=== PATIENT | female | born 1980 | race African-American/Black ===

== ENCOUNTER 2018-01-26 11:28 | Inpatient (IN) | payer BC ==
[2018-01-26] MEDS ORDERED: INSULIN -REGULAR HUMAN 50 UNIT/0.5 ML ML ONE (13:14)
[2018-01-26] MEDS ORDERED: NA CHLORIDE 0.9% 0 ML ONE (13:14)
[2018-01-26 13:40] LABS: BUN Blood Urea Nitrogen 9 mg/dL (6-20); Glucose Level 401 mg/dL (65-120); Sodium Level 131 mEq/L (135-145)
[2018-01-26 13:43] LABS: Absolute Lymphocytes (CBC) 2.3 K/uL (0.7-4.9); Absolute Monocytes 0.3 K/uL (0.1-1.3); Absolute Neutrophil 3.5 K/uL (1.8-8.0); Basophils % 0.8 % (0-1.3); Eosinophils % 1.2 % (0-4.4); Lymphocytes % 36.5 % (15.3-44.8); MCH 26.8 pg (27.0-35.0); MCV 83.8 fL (80-100); MPV 9.5 fL (7.6-11.3); Monocytes % 5.2 % (3.3-12.3); RBC Red Blood Cell Count 4.66 M/uL (3.86-4.86)
[2018-01-26 13:44] LABS: Bicarbonate 11 mEq/L (21-31)
--- NOTE | 2018-01-26 13:44 | EKG ---
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
[2018-01-26] MEDS ORDERED: ONDANSETRON 4 MG/2 ML VIAL IV PRN (14:27)
[2018-01-26] MEDS ORDERED: INSULIN DETEMIR 100 UNIT/1 ML INSULIN SQ SCH ×2 (14:30→21:00)
[2018-01-26] MEDS ORDERED: INSULIN -REGULAR HUMAN 100 UNIT in NA CHLORIDE 0.9% 100 ML IV SCH (14:30)
--- NOTE | 2018-01-26 14:32 | ER ---
Nurse's Notes [facility] Name: Raphael Su Age: 37 yrs Sex: Female : 1980 Arrival Date: 01/26/2018 Time: 11:31 Bed 7 Private MD: Diagnosis: Other specified diabetes mellitus with ketoacidosis without coma;Dehydration Presentation: 01/26 12:11 Presenting complaint: Patient states: "I went to do my physical this morning and my lk1 sugar was 466. My feet hurt and my left calf hurts. I feel short of breath.". Transition of care: patient was not received from another setting of care. Onset of symptoms was January 26, 2018 at 08:00. Initial Sepsis Screen: Does the patient meet any 2 criteria? No. Patient's initial sepsis screen is negative. Does the patient have a suspected source of infection? No. Patient initial sepsis screen negative. Care prior to arrival: None. 12:11 Method Of Arrival: Ambulatory lk1 12:11 Acuity: SHARON 3 lk1 Triage Assessment: 12:13 General: Appears in no apparent distress. Behavior is calm, cooperative, appropriate lk1 for age. Pain: Complains of pain in right foot, left foot and left leg Pain currently is 6 out of 10 on a pain scale. 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 - Social history:: Smoking status: Patient uses tobacco products, smokes one-half pack cigarettes per day. - Family history:: not pertinent. - Hospitalizations: : No recent hospitalization is reported. Screenin:40 Abuse screen: Denies threats or abuse. Denies injuries from another. Nutritional sg screening: No deficits noted. Tuberculosis screening: No symptoms or risk factors identified. Never had TB. Fall Risk None identified. Assessment: 12:40 General: Appears in no apparent distress. comfortable, slender, well groomed, well sg developed, well nourished, Behavior is calm, cooperative, appropriate for age. Pain: Complains of pain in left leg and right foot Pain does not radiate. Quality of pain is described as tender. Neuro: Level of Consciousness is awake, alert, obeys commands, Oriented to person, place, time, situation, Development Eng are equal bilaterally Moves all extremities. Full function Speech is normal, Facial symmetry appears normal. Cardiovascular: Heart tones S1 S2 present Capillary refill is brisk in bilateral fingers Patient's skin is warm and dry. Chest pain is denied. Respiratory: Airway is patent Respiratory effort is even, unlabored, Respiratory pattern is regular, symmetrical, Breath sounds are clear. GI: No signs and/or symptoms were reported involving the gastrointestinal system. : No signs and/or symptoms were reported regarding the genitourinary system. EENT: No signs and/or symptoms were reported regarding the EENT system. Derm: Skin is intact, is healthy with good turgor, Skin is dry, Skin is normal, Skin temperature is warm. Musculoskeletal: No deficits noted. Reports pain in left leg and right foot. 15:54 Reassessment: Patient appears in no apparent distress at this time. Patient and/or iw family updated on plan of care and expected duration. Pain level reassessed. Patient is alert, oriented x 3, equal unlabored respirations, skin warm/dry/pink. pt ambulated to bathroom with steady gait, RT at bedside to draw ABG, urine specimen collected, KV=[id number]. 16:10 Reassessment: on phone, reports the pt gap to be 9, orders received to d/c sg insulin drip, administer 5 units Levemir Sub Q, and the pt to be downgraded from ICU to the floor. awaiting a bed assignment. 16:20 Reassessment: at bedside at this time. sg Vital Signs: 12:13 BP 108 / 77; Pulse 113; Resp 18; Temp 98.2(O); Pulse Ox 98% on R/A; Weight 68.04 kg lk1 (R); Height 5 ft. 6 in. (167.64 cm) (R); Pain 6/10; 13:37 BP 105 / 74; Pulse 98; Resp 18; Pulse Ox 98% on R/A; jb1 15:30 BP 100 / 71; Pulse 96 MON; Resp 18 S; Pulse Ox 100% on R/A; sg 12:13 Body Mass Index 24.21 (68.04 kg, 167.64 cm) lk1 ED Course: 11:31 Patient arrived in ED. as 12:12 Triage completed. lk1 12:16 Arm band placed on right wrist. lk1 12:17 Jeovanny Machado MD is Attending Physician. rn 12:29 Que Olson, RN is Primary Nurse. sg 12:40 Patient has correct armband on for positive identification. Bed in low position. Call sg light in reach. Side rails up X2. Pulse ox on. NIBP on. Warm blanket given. Head of bed elevated. 12:40 No provider procedures requiring assistance completed. sg 12:46 Que Olson, RN is Primary Nurse. sg 13:00 EKG done, by area intelligence technician. reviewed by Jeovanny Machado MD. vh 13:11 Initial lab(s) drawn, by me, sent to lab. Inserted saline lock: 22 gauge in right jb1 forearm, using aseptic technique. Blood collected. 14:15 XRAY Chest (1 view) In Process Unspecified. EDMS 14:19 X-ray completed. Portable x-ray completed in exam room. Patient tolerated procedure jr1 well. 14:31 Scott Turner DO is Hospitalizing Provider. rn 14:31 Marj Turner MD is Hospitalizing Provider. rn 14:55 Que Olson, VANESSA is Primary Nurse. sg 16:02 Urine collected: clean catch specimen, cloudy, jessica colored. jb1 16:33 Patient admitted, IV remains in place. intact, No redness/swelling at site. sg Administered Medications: Discontinued: Insulin Drip - (Insulin Regular Human 100 units, NS 0.9% 100 ml) IV at calculated rate continuous; Standard concentration 1unit/ml; Dose for DKA is 0.1 units/kg/hr 13:00 Drug: NS 0.9% 1000 ml Route: IV; Rate: 1000 ml; Site: right forearm; sg 14:20 Follow up: Response: No adverse reaction; IV Status: Completed infusion; IV Intake: sg 990ml 13:00 Drug: Insulin Regular Human 10 units {Co-Signature: sv (Karen Valencia RN).} Route: sg Sub-Q; Site: right upper arm; 13:30 Follow up: Response: No adverse reaction; Blood sugar is unchanged sg 15:40 Drug: Zofran 4 mg Route: IVP; Site: right forearm; sg 16:10 Follow up: Response: No adverse reaction; Nausea is decreased sg 15:40 Drug: NS 0.9% 1000 ml Route: IV; Rate: 1000 ml; Site: right forearm; sg 15:48 Drug: Insulin Drip - (Insulin Regular Human 100 units, NS 0.9% 100 ml) {Co-Signature: sg iw (Roselyn Hooker RN).} Route: IV; Rate: calculated rate; Site: right forearm; 16:08 Drug: D5-1/2 NS 1000 ml Route: IV; Rate: 150 ml/hr; Site: left antecubital; iw 16:20 Drug: Levemir 100 unit/mL 5 units Route: Sub-Q; Site: right upper arm; sg Point of Care Testing: Blood Glucose: 12:30 Blood Glucose: 336 mg/dL; jb1 14:02 Blood Glucose: 352 mg/dL; jb1 15:54 Blood Glucose: 246 mg/dL; iw Ranges: Intake: 14:20 IV: 990ml; Total: 990ml. sg Outcome: 14:31 Decision to Hospitalize by Provider. rn 16:32 Admitted to Tele accompanied by tech, family with patient, via wheelchair, room 414, sg with chart, Report called to Iker MENDEZ 16:32 Condition: stable 16:32 Instructed on the need for admit, safety practices, Demonstrated understanding of 16:51 Patient left the ED. bd Signatures: Dispatcher [employer] Sudhakar Mercedes jb1 Sarah Will Steven, RN RN Susy Espinoza Amelia as Williams, Irene, RN RN Jeovanny Machado MD MD rn Harrell, Venessa vh Kluge, Leah, RN RN lk1 Karen Hooker RN iw
--- NOTE | 2018-01-26 14:32 | RAD REPORT ---
EXAM DESCRIPTION: RAD - Chest Single View - 01/26/2018 2:17 pm CLINICAL HISTORY: Shortness of breath COMPARISON: November 19 TECHNIQUE: AP portable chest image was obtained 1403 hours . FINDINGS: Lungs are clear. Heart and vasculature are normal. No measurable pleural effusion and no p neumothorax. No gross bony abnormality seen. No acute aortic findings suspected. IMPRESSION: No acute cardiopulmonary process. No significant interval change.
--- NOTE | 2018-01-26 14:32 | EDPHYS ---
Physician Documentation [facility] Name: Raphael Su Age: 37 yrs Sex: Female : 1980 Arrival Date: 01/26/2018 Time: 11:31 Bed 7 Private MD: ED Physician Jeovanny Machado HPI: 01/26 13:38 This 37 yrs old Black Female presents to ER via Ambulatory with complaints of High rn Blood Sugar. 13:38 The patient or guardian reports hyperglycemia, that was potentially precipitated by no rn particular event. Onset: The symptoms/episode began/occurred at an unknown time. Current symptoms: In the emergency department the patient's symptoms are unchanged from the initial presentation. The patient has experienced similar episodes in the past. Reports was at work physical today, sugar was > 400, called pcp for appt but unable to fit her in so came here, reports generalized weakness, + increased urinary frequency, states used to be on lantus but had allergic reaction so stopped, also states araujo of other insulin was keeping her from refilling. States that take sonly half of her glimepride because causes her irregular bleeding. . Also reports mild sob, just flew back from [place] recently. No hx of dvt/pe. 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 - Social history:: Smoking status: Patient uses tobacco products, smokes one-half pack cigarettes per day. - Family history:: not pertinent. - Hospitalizations: : No recent hospitalization is reported. ROS: 13:38 Constitutional: Negative for fever, chills, and weight loss, Eyes: Negative for injury, rn pain, redness, and discharge, Neck: Negative for injury, pain, and swelling, Cardiovascular: Negative for chest pain, palpitations, and edema, Respiratory: Negative for shortness of breath, cough, wheezing, and pleuritic chest pain, Abdomen/GI: Negative for abdominal pain, nausea, vomiting, diarrhea, and constipation, Back: Negative for injury and pain, MS/Extremity: Negative for injury and deformity, Skin: Negative for injury, rash, and discoloration, Neuro: Negative for headache, numbness, tingling, and seizure. Exam: 13:38 Constitutional: This is a well developed, well nourished patient who is awake, alert, rn and in no acute distress. Head/Face: Normocephalic, atraumatic. Eyes: Pupils equal round and reactive to light, extra-ocular motions intact. Lids and lashes normal. Conjunctiva and sclera are non-icteric and not injected. Cornea within normal limits. Periorbital areas with no swelling, redness, or edema. ENT: dry MM Neck: Trachea midline, no thyromegaly or masses palpated, and no cervical lymphadenopathy. Supple, full range of motion without nuchal rigidity, or vertebral point tenderness. No Meningismus. Cardiovascular: Regular rate and rhythm with a normal S1 and S2. No gallops, murmurs, or rubs. Normal PMI, no JVD. No pulse deficits. Respiratory: Lungs have equal breath sounds bilaterally, clear to auscultation and percussion. No rales, rhonchi or wheezes noted. No increased work of breathing, no retractions or nasal flaring. Abdomen/GI: Soft, non-tender, with normal bowel sounds. No distension or tympany. No guarding or rebound. No evidence of tenderness throughout. Back: No spinal tenderness. No costovertebral tenderness. Full range of motion. MS/ Extremity: Pulses equal, no cyanosis. Neurovascular intact. Full, normal range of motion. Equal circumference. Neuro: Awake and alert, GCS 15, oriented to person, place, time, and situation. Cranial nerves II-XII grossly intact. Motor strength 5/5 in all extremities. Sensory grossly intact. Cerebellar exam normal. Normal gait. Vital Signs: 12:13 BP 108 / 77; Pulse 113; Resp 18; Temp 98.2(O); Pulse Ox 98% on R/A; Weight 68.04 kg lk1 (R); Height 5 ft. 6 in. (167.64 cm) (R); Pain 6/10; 13:37 BP 105 / 74; Pulse 98; Resp 18; Pulse Ox 98% on R/A; jb1 15:30 BP 100 / 71; Pulse 96 MON; Resp 18 S; Pulse Ox 100% on R/A; sg 12:13 Body Mass Index 24.21 (68.04 kg, 167.64 cm) lk1 MDM: 12:17 Patient medically screened. rn 14:30 Differential diagnosis: DKA, hyperglycemia. Data reviewed: vital signs, nurses notes, advisory internship test result(s), EKG, radiologic studies, and as a result, I will admit patient. Counseling: I had a detailed discussion with the patient and/or guardian regarding: the historical points, exam findings, and any diagnostic results supporting the discharge/admit diagnosis, lab results, radiology results, the need for further work-up and treatment in the hospital. Response to treatment: the patient's symptoms have mildly improved after treatment, and as a result, I will admit patient. Admission orders: after a detailed discussion of the patient's condition and case, the admit orders are written by me. 01/26 12:41 Order name: CBC with Diff; Complete Time: 14:03 rn 01/26 12:41 Order name: Basic Metabolic Panel; Complete Time: 14:03 rn 01/26 12:41 Order name: Urine Microscopic Only rn 01/26 12:41 Order name: D-Dimer; Complete Time: 14:03 rn 01/26 12:41 Order name: Ketone, Serum; Complete Time: 14:03 rn 01/26 14:30 Order name: ABG rn 01/26 14:34 Order name: Acetone Level EDNM 01/26 14:34 Order name: Acetone Level EDNM 01/26 14:34 Order name: Acetone Level EDNM 01/26 14:34 Order name: Acetone Level EDNM 01/26 14:34 Order name: Basic Metabolic Panel EDNM 01/26 14:34 Order name: Basic Metabolic Panel EDNM 01/26 14:34 Order name: Basic Metabolic Panel EDNM 01/26 14:34 Order name: Basic Metabolic Panel EDNM 01/26 12:41 Order name: XRAY Chest (1 view); Complete Time: 15:03 rn 01/26 14:34 Order name: Basic Metabolic Panel EDNM 01/26 14:34 Order name: Magnesium EDMS 01/26 14:34 Order name: Magnesium EDMS 01/26 14:34 Order name: Phosphorus EDMS 01/26 14:34 Order name: Phosphorus EDMS 01/26 14:35 Order name: Urinalysis EDNM 01/26 14:36 Order name: CBC with Automated Diff EDMS 01/26 14:36 Order name: CBC with Automated Diff EDMS 01/26 14:36 Order name: CBC with Automated Diff EDMS 01/26 14:36 Order name: CBC with Automated Diff EDMS 01/26 16:24 Order name: ABG Arterial Blood Gas EDNM 01/26 16:27 Order name: Urine Dipstick--Ancillary (enter results) jw5 01/26 16:40 Order name: Urine Dipstick-Ancillary EDNM 01/26 12:41 Order name: IV Start; Complete Time: 13:11 rn 01/26 12:41 Order name: Urine Test (obtain specimen); Complete Time: 16:02 rn 01/26 12:41 Order name: Urine Dipstick-Ancillary (obtain specimen); Complete Time: 16:02 rn 01/26 12:41 Order name: Glucose Level; Complete Time: 12:52 rn 01/26 12:41 Order name: EKG; Complete Time: 12:41 rn 01/26 12:41 Order name: EKG - Nurse/Tech; Complete Time: 12:52 rn 01/26 14:34 Order name: CONS Pharmacy Consult EDNM 01/26 14:35 Order name: NPO EDNM Administered Medications: Discontinued: Insulin Drip - (Insulin Regular Human 100 units, NS 0.9% 100 ml) IV at calculated rate continuous; Standard concentration 1unit/ml; Dose for DKA is 0.1 units/kg/hr 13:00 Drug: NS 0.9% 1000 ml Route: IV; Rate: 1000 ml; Site: right forearm; sg 14:20 Follow up: Response: No adverse reaction; IV Status: Completed infusion; IV Intake: sg 990ml 13:00 Drug: Insulin Regular Human 10 units {Co-Signature: sv (Karen Valencia RN).} Route: sg Sub-Q; Site: right upper arm; 13:30 Follow up: Response: No adverse reaction; Blood sugar is unchanged sg 15:40 Drug: Zofran 4 mg Route: IVP; Site: right forearm; sg 16:10 Follow up: Response: No adverse reaction; Nausea is decreased sg 15:40 Drug: NS 0.9% 1000 ml Route: IV; Rate: 1000 ml; Site: right forearm; sg 15:48 Drug: Insulin Drip - (Insulin Regular Human 100 units, NS 0.9% 100 ml) {Co-Signature: [facility] (Roselyn Hooker RN).} Route: IV; Rate: calculated rate; Site: right forearm; 16:08 Drug: D5-1/2 NS 1000 ml Route: IV; Rate: 150 ml/hr; Site: left antecubital; iw 16:20 Drug: Levemir 100 unit/mL 5 units Route: Sub-Q; Site: right upper arm; Point of Care Testing: Blood Glucose: 12:30 Blood Glucose: 336 mg/dL; jb1 14:02 Blood Glucose: 352 mg/dL; jb1 15:54 Blood Glucose: 246 mg/dL; iw Ranges: Critical Glucose Levels:Adult <50 mg/dl or >400 mg/dl <40 mg/dl or >180 mg/dl Disposition: 01/26/18 14:31 Hospitalization ordered by Marj Turner for Inpatient Admission. Preliminary diagnosis are Other specified diabetes mellitus with ketoacidosis without coma, Dehydration. - Bed requested for Telemetry/MedSurg (Inpatient). - Status is Inpatient Admission. bd - Condition is Stable. - Problem is new. - Symptoms have improved. UTI on Admission? No Signatures: Dispatcher [employer] EDSarah Prasad Diana, RN RN Que Olson RN RN Roselyn Hooker RN RN Jeovanny Machado MD MD rn Kluge, Leah, RN RN lk1 Karen Hooker RN
[2018-01-26] MEDS ORDERED: NACHLORIDE 0.45% 1,000 ML IV SCH ×2 (15:00→15:52)
[2018-01-26] MEDS ORDERED: ONDANSETRON 4 MG/2 ML VIAL ONE (15:30)
[2018-01-26] MEDS ORDERED: NA CHLORIDE 0.9% 1,000 ML ONE ×2 (15:30→15:32)
--- NOTE | 2018-01-26 15:40 | P.HP ---
Certification for Inpatient Patient admitted to: Inpatient With expected LOS: >2 Midnights Patient will require the following post-hospital care: None Practitioner: I am a practitioner with admitting privileges, knowledge of patient current condition, hospital course, and medical plan of care. Services: Services provided to patient in accordance with Admission requirements found in Title 42 Section 412.3 of the Code of Federal Regulations Patient History Date of Service: 01/26/18 Primary Care Provider: Dr Callaway Reason for admission: DKA History of Present Illness: 37 year old Afro-[place] female with Pmhx of DM type 1, Hyperlipidemia, and Tobacco abuse presented emergency room with polyuria and body aches. The patient reports over the past several days she has been having multiple symptoms with trouble urinating and body aches. She states she was recently here in the hospital for DKA and was discharged home with Insulin. She was not able to take Long acting insulin due to rash and Short acting insulin is very expensive for her. She called her PCP who had no appointments for her. Thus she decided to come to the hospital for Further workup. . In the ER the patient was evaluated. She was slightly tachycardic. Blood sugar was elevated at 400. Acetone level was small. Pt was found to be in DKA and was referred over for admission. Allergies sulfamethoxazole [From Bactrim] Allergy (Verified 11/20/17 05:16) Hives trimethoprim [From Bactrim] Allergy (Verified 11/20/17 05:16) Hives Home Medications: Albuterol Sulfate [Proair Hfa] 8.5 gm IH TID PRN #1 hfa.aer.ad 11/20/17 Famotidine [Pepcid] 20 mg PO BID #60 tab 11/20/17 Fluticasone/Salmeterol [Advair 250-50 Diskus] 1 each IH BID #1 blst.w.dev Insulin Detemir [Levemir*] 20 units SQ DAILY #1 ml 11/20/17 - Past Medical/Surgical History Diabetic: Yes -: Diabetes mellitus type 1 -: Tobacco abuse -: COPD -: Tubal ligation Psychosocial/ Personal History: The patient is . She has 4 children. She works at a local [employer] - Family History Father -: Diabetes Mother -: Diabetes - Social History Alcohol use: No CD- Drugs: No Caffeine use: Yes Review of Systems General: As per HPI Physical Examination - Physical Exam General: Alert, In no apparent distress, Oriented x3 HEENT: Atraumatic Neck: Supple Respiratory: Clear to auscultation bilaterally Cardiovascular: Regular rate/rhythm, Normal S1 S2 Gastrointestinal: Normal bowel sounds, Soft and benign, Non-distended, No tenderness Musculoskeletal: No tenderness Integumentary: No rashes Neurological: Normal speech, Normal tone Lymphatics: No axilla or inguinal lymphadenopathy - Studies Laboratory Data (last 24 hrs) 01/26/18 13:05: Sodium 131 L, Potassium 4.0, BUN 9, Creatinine 0.64, Glucose 401 H* 01/26/18 13:05: WBC 6.3, Hgb 12.5, Hct 39.0, Plt Count 308 Assessment and Plan - Problems (Diagnosis) (1) DKA (diabetic ketoacidoses) Onset Date: 11/20/17 Current Visit: No Status: Acute Plan: DKA with BS of 400 and Small Ketones -Insulin ggt and IV fluids -BMP and acetone level q4h -Once Gap is < 12 and ketones are negative we will switch to LA insulin and stop ggt Qualifiers: Diabetes mellitus type: type 1 Diabetes mellitus complication detail: without coma Qualified Code(s): E10.10 - Type 1 diabetes mellitus with ketoacidosis without coma (2) Diabetes mellitus Onset Date: 11/20/17 Current Visit: No Status: Acute Plan: Last A1c is 12.9 -Currently on ggt. Qualifiers: Diabetes mellitus type: type 1 Diabetes mellitus complication status: with ketoacidosis Diabetes mellitus complication detail: without coma Qualified Code(s): E10.10 - Type 1 diabetes mellitus with ketoacidosis without coma (3) Tobacco abuse Onset Date: 11/20/17 Current Visit: No Status: Chronic (4) GERD (gastroesophageal reflux disease) Onset Date: 11/20/17 Current Visit: No Status: Suspected Qualifiers: Esophagitis presence: esophagitis presence not specified Qualified Code(s) : K21.9 - Gastro-esophageal reflux disease without esophagitis (5) Hyperlipidemia Onset Date: 11/20/17 Current Visit: No Status: Chronic Plan: last Lipid panel -Total triglycerides 141, total cholesterol 183, LDL 126, HDL 29. -Will resume home medication. Qualifiers: Hyperlipidemia type: unspecified Qualified Code(s): E78.5 - Hyperlipidemia , unspecified Discharge Plan: Home Plan to discharge in: 48 Hours - Advance Directives Does patient have a Living Will: No Does patient have a Durable POA for Healthcare: No - Code Status/Comfort Care Code Status Assessed: Yes Critical Care: Yes
[2018-01-26 15:53] LABS: Glucose Level 276 mg/dL (65-120)
[2018-01-26 15:54] LABS: BUN Blood Urea Nitrogen 7 mg/dL (6-20)
[2018-01-26 15:59] LABS: Bicarbonate 15 mEq/L (21-31); Potassium 3.5 mEq/L (3.6-5.0); Sodium Level 135 mEq/L (135-145)
[2018-01-26] MEDS ORDERED: D5 0.45 NS 1,000 ML IV ONE (16:05)
[2018-01-26] MEDS ORDERED: D50W 25 GM/50 ML SYRINGE IV PRN ×2 (16:11→17:18)
[2018-01-26] MEDS ORDERED: GLUCAGON 1 MG/VIAL IM PRN ×2 (16:11→17:18)
[2018-01-26] MEDS ORDERED: INSULIN DETEMIR 100 UNIT/1 ML INSULIN SQ ONE (16:13)
[2018-01-26 16:21] LABS: Arterial Blood Carboxyhemoglob 1.8 % (0-1.5); Blood Gas Oxyhemoglobin 95.6 % (94-97); Blood O2 Saturation 98.1 % (92-98.5)
[2018-01-26] MEDS ORDERED: INSULIN -REGULAR HUMAN 50 UNIT/0.5 ML ML SQ SCH (16:30)
[2018-01-26 16:40] LABS: Urine Blood 3+ (NEG); Urine Glucose 2+ (NEG); Urine Protein 2+ (NEG); Urine Specific Gravity >1.030 (1.005-1.030)
[2018-01-26 16:47] LABS: Urine Bacteria NONE SEEN /HPF (<20); Urine Culture Reflex Order NOT NEEDED
[2018-01-26 17:01] VITALS: BMI 24.2
[2018-01-26] MEDS: INSULIN -REGULAR HUMAN 50 UNIT/0.5 ML ML SQ SCH ×2 (17:39→21:00)
[2018-01-26] MEDS: NA CHLORIDE 0.9% 1,000 ML IV SCH (17:41)
[2018-01-26 21:06] LABS: BUN Blood Urea Nitrogen 8 mg/dL (6-20); Bicarbonate 19 mEq/L (21-31); Glucose Level 302 mg/dL (65-120); Potassium 3.7 mEq/L (3.6-5.0); Sodium Level 137 mEq/L (135-145)
[2018-01-27] MEDS: NA CHLORIDE 0.9% 1,000 ML IV SCH (04:29)
[2018-01-27 05:00] LABS: Absolute Lymphocytes (CBC) 2.3 K/uL (0.7-4.9); Absolute Monocytes 0.4 K/uL (0.1-1.3); Absolute Neutrophil 2.7 K/uL (1.8-8.0); Basophils % 0.7 % (0-1.3); Hematocrit 30.7 % (36.0-45.0); Lymphocytes % 41.6 % (15.3-44.8); MCH 26.4 pg (27.0-35.0); MCV 82.1 fL (80-100); MPV 9.3 fL (7.6-11.3); Monocytes % 7.1 % (3.3-12.3); RBC Red Blood Cell Count 3.74 M/uL (3.86-4.86)
[2018-01-27 05:14] LABS: BUN Blood Urea Nitrogen 14 mg/dL (6-20); Bicarbonate 18 mEq/L (21-31); Glucose Level 273 mg/dL (65-120); Magnesium 1.7 mg/dL (1.8-2.5); Phosphorus 2.4 mg/dL (2.5-4.3); Potassium 3.3 mEq/L (3.6-5.0); Sodium Level 134 mEq/L (135-145)
[2018-01-27] MEDS ORDERED: MAGNESIUM SULFATE 1 gm IVPB 1 GM/100 ML BAG IV ONE (06:22)
[2018-01-27] MEDS ORDERED: POTASSIUM 25 MEQ EFFERV TAB PO ONE ×2 (06:23→06:35)
[2018-01-27] MEDS: ACETAMINOPHEN 500 MG TAB PO PRN ×2 (06:46→10:33)
[2018-01-27 08:13] VITALS: BP 98/60; TEMP 97.8
[2018-01-27] MEDS: INSULIN -REGULAR HUMAN 50 UNIT/0.5 ML ML SQ SCH (08:24)
[2018-01-27] MEDS: INSULIN DETEMIR 100 UNIT/1 ML INSULIN SQ SCH ×2 (08:25→08:30)
[2018-01-27 11:16] VITALS: O2SAT 99
[2018-01-27] MEDS ORDERED: INSULIN DETEMIR 100 UNIT/1 ML INSULIN SQ ONE (16:15)
--- NOTE | 2018-01-27 16:18 | P.SSS ---
Patient History Date of Service: 01/27/18 Primary Care Provider: Dr Callaway Reason for admission: DKA History of Present Illness: 37 year old Afro-Pakistani female with Pmhx of DM type 1, Hyperlipidemia, and Tobacco abuse presented emergency room with polyuria and body aches. The patient reports over the past several days she has been having multiple symptoms with trouble urinating and body aches. She states she was recently here in the hospital for DKA and was discharged home with Insulin. She was not able to take Long acting insulin due to rash and Short acting insulin is very expensive for her. She called her PCP who had no appointments for her. Thus she decided to come to the hospital for Further workup. . In the ER the patient was evaluated. She was slightly tachycardic. Blood sugar was elevated at 400. Acetone level was small. Pt was found to be in DKA and was referred over for admission. Allergies insulin glargine [From Lantus] Allergy (Verified 01/26/18 21:02) Unknown sulfamethoxazole [From Bactrim] Allergy (Verified 11/20/17 05:16) Hives trimethoprim [From Bactrim] Allergy (Verified 11/20/17 05:16) Hives Home Medications: Insulin Detemir [Levemir] 20 unit SQ BID #2 vial 01/27/18 - Past Medical/Surgical History Diabetic: Yes -: Diabetes mellitus type 1 -: Tobacco abuse -: COPD -: Tubal ligation Psychosocial/ Personal History: The patient is . She has 4 children. She works at a local [employer] - Family History Father -: Diabetes Mother -: Diabetes - Social History Smoking Status: Current every day smoker Alcohol use: No CD- Drugs: No Caffeine use: Yes Place of Residence: Home Review of Systems General: As per HPI Physical Examination - Vital Signs Temperature: 97.8 F Blood Pressure: 98/60 Pulse: 85 Respirations: 18 Pulse Ox (%): 99 - Physical Exam General: Alert, In no apparent distress, Oriented x3 HEENT: Atraumatic, PERRLA, Mucous membr. moist/pink, EOMI, Sclerae nonicteric Neck: Supple, 2+ carotid pulse no bruit, No LAD, Without JVD or thyroid abnormality Respiratory: Clear to auscultation bilaterally, Normal air movement Cardiovascular: Regular rate/rhythm, Normal S1 S2 Gastrointestinal: Normal bowel sounds, No tenderness Musculoskeletal: No tenderness Integumentary: No rashes Neurological: Normal gait, Normal speech, Normal strength at 5/5 x4 extr, Normal tone, Normal affect Lymphatics: No axilla or inguinal lymphadenopathy - Diagnosis (Problem(s)) (1) DKA (diabetic ketoacidoses) Onset Date: 11/20/17 Status: Resolved Plan: DKA with BS of 400 and Small Ketones on admission. Now resolved. -Switched to PO Insulin now. On levemir 20mg BID. -Pt to be discharged home now. -Was given F/U with [facility] diabetic Clinic department in April Qualifiers: Diabetes mellitus type: type 1 Diabetes mellitus complication detail: without coma Qualified Code(s): E10.10 - Type 1 diabetes mellitus with ketoacidosis without coma (2) Diabetes mellitus Onset Date: 11/20/17 Status: Chronic Plan: Last A1c is 12.9 -Levemir 20units BID Qualifiers: Diabetes mellitus type: type 1 Diabetes mellitus complication status: with ketoacidosis Diabetes mellitus complication detail: without coma Qualified Code(s): E10.10 - Type 1 diabetes mellitus with ketoacidosis without coma (3) Tobacco abuse Onset Date: 11/20/17 Status: Chronic (4) GERD (gastroesophageal reflux disease) Onset Date: 11/20/17 Status: Suspected Qualifiers: Esophagitis presence: esophagitis presence not specified Qualified Code(s) : K21.9 - Gastro-esophageal reflux disease without esophagitis (5) Hyperlipidemia Onset Date: 11/20/17 Status: Chronic Plan: last Lipid panel -Total triglycerides 141, total cholesterol 183, LDL 126, HDL 29. Qualifiers: Hyperlipidemia type: unspecified Qualified Code(s): E78.5 - Hyperlipidemia , unspecified - Disposition Disposition: ROUTINE DISCHARGE Condition: GOOD Patient Discharge Instructions: Please f/u with PCP in 1 to 2 week post discharge. Please f/u with: (They Will call you to make an appt). [facility] post discharge. Address: [address] [place] [address] [address], [place] [address], [facility]. . . New medication. levemir 20units BID. Continue taking your ASA 81mg OTC and statin for cholestrol Diet: Regular Activity: Ad anthony
== END 2018-01-27 11:33 | disposition home or self-care (01) | DRG 639 ==
LOC: ER 11:28 → ERHOLD 14:28 → 4TH 16:35
PROVIDERS: ADMIT Family Medicine; ATTEND Family Medicine
DX: E10.10 Type 1 diabetes mellitus with ketoacidosis without coma (principal); K21.9 Gastro-esophageal reflux disease without esophagitis; F17.210 Nicotine dependence, cigarettes, uncomplicated; E78.5 Hyperlipidemia, unspecified; Z88.2 Allergy status to sulfonamides
CPT/HCPCS: 36415; 71045; 80048; 81003; 81015; 82009; 82805; 82962; 83735; 84100; 85025; 85379; 93005; 96361; 96372; 96374; 96375; 99285; J2405; J3475; J7030

== ENCOUNTER 2018-06-16 11:12 | Inpatient (IN) | payer BC ==
[2018-06-16] MEDS ORDERED: NA CHLORIDE 0.9% 1,000 ML ONE (14:00)
[2018-06-16 14:01] LABS: Absolute Lymphocytes (CBC) 1.8 K/uL (0.7-4.9); Absolute Monocytes 0.3 K/uL (0.1-1.3); Absolute Neutrophil 2.7 K/uL (1.8-8.0); Basophils % 0.7 % (0-1.3); Eosinophils % 0.7 % (0-4.4); Hematocrit 37.6 % (36.0-45.0); MCV 84.8 fL (80-100); MPV 9.6 fL (7.6-11.3); Monocytes % 6.4 % (3.3-12.3); RBC Red Blood Cell Count 4.44 M/uL (3.86-4.86)
[2018-06-16 14:08] LABS: Protime INR 0.92
--- NOTE | 2018-06-16 14:15 | RAD REPORT ---
EXAM DESCRIPTION: RAD - Chest Single View - 06/16/2018 1:53 pm CLINICAL HISTORY: Cough, intermittent fever COMPARISON: January 2018 TECHNIQUE: AP portable chest image was obtained 1349 hours . FINDINGS: Lungs are clear. Heart and vasculature are normal. No measurable pleural effusion and no p neumothorax. No gross bony abnormality seen. No acute aortic findings suspected. IMPRESSION: No acute cardiopulmonary process. No significant interval change.
[2018-06-16 14:26] LABS: ALT/SGPT 14 U/L (12-78); AST/SGOT 13 U/L (15-37); Albumin 3.7 g/dL (3.4-5.0); Alkaline Phosphatase 77 U/L (45-117); BUN Blood Urea Nitrogen 8 mg/dL (7-18); Bicarbonate 15 mmol/L (21-32); Bilirubin Direct 0.1 mg/dL (0-0.2); Bilirubin Total 0.4 mg/dL (0.2-1.0); CKMB Creatine Kinase MB 1.1 ng/mL (0.3-3.6); Creatine Phosphokinase 75 U/L (26-192); Glucose Level 387 mg/dL (74-106); Lipase 96 U/L (73-393); Magnesium 1.8 mg/dL (1.8-2.4); NT PRO-BNP 16 pg/mL (<125); Potassium 4.2 mmol/L (3.5-5.1); Protein, Total 7.6 g/dL (6.4-8.2); Sodium Level 136 mmol/L (136-145); Troponin (Emerg Dept Use Only) < 0.02 ng/mL (0.0-0.045)
--- NOTE | 2018-06-16 14:37 | EDPHYS ---
Physician Documentation [facility] Name: Raphael Su Age: 37 yrs Sex: Female : 1980 Arrival Date: 06/16/2018 Time: 11:13 Bed 19 Private MD: Tashi Callaway H ED Physician Jerry Herrera HPI: 06/16 14:32 This 37 yrs old Black Female presents to ER via Ambulatory with complaints of Fever, louis Palpitations, High Blood Sugar. 14:32 The patient reports fever, that was measured at 102 degrees Fahrenheit. Onset: The louis symptoms/episode began/occurred 3 day(s) ago. Modifying factors: there are no obvious modifying factors. Associated signs and symptoms: Pertinent positives: cough. Severity of symptoms: At their worst the symptoms were mild. The patient has not experienced similar symptoms in the past. Historical: - Allergies: 12:13 Bactrim; ph 12:13 Lantus; ph - PMHx: 17:12 Diabetes - IDDM; sm4 - PSHx: 12:13 Tubal ligation; ph - Immunization history:: Adult Immunizations up to date. - Social history:: Smoking status: Patient uses tobacco products, smokes one-half pack cigarettes per day. - Ebola Screening: : Patient denies exposure to infectious person Patient denies travel to an Ebola-affected area in the 21 days before illness onset No symptoms or risks identified at this time. ROS: 14:33 Eyes: Negative for injury, pain, redness, and discharge, ENT: Negative for injury, louis pain, and discharge, Neck: Negative for injury, pain, and swelling, Cardiovascular: Negative for chest pain, palpitations, and edema, Abdomen/GI: Negative for abdominal pain, nausea, vomiting, diarrhea, and constipation, Back: Negative for injury and pain, : Negative for injury, bleeding, discharge, and swelling, MS/Extremity: Negative for injury and deformity, Skin: Negative for injury, rash, and discoloration, Neuro: Negative for headache, weakness, numbness, tingling, and seizure, Psych: Negative for depression, anxiety, suicide ideation, homicidal ideation, and hallucinations, Allergy/Immunology: Negative for hives, rash, and allergies, Endocrine: Negative for neck swelling, polydipsia, polyuria, polyphagia, and marked weight changes, Hematologic/Lymphatic: Negative for swollen nodes, abnormal bleeding, and unusual bruising. 14:33 Constitutional: Positive for fever. 14:33 Respiratory: Positive for cough, shortness of breath, on exertion. 14:33 Neuro: Positive for weakness. Exam: 14:33 Constitutional: This is a well developed, well nourished patient who is awake, alert, louis and in no acute distress. Head/Face: Normocephalic, atraumatic. Eyes: Pupils equal round and reactive to light, extra-ocular motions intact. Lids and lashes normal. Conjunctiva and sclera are non-icteric and not injected. Cornea within normal limits. Periorbital areas with no swelling, redness, or edema. ENT: Nares patent. No nasal discharge, no septal abnormalities noted. Tympanic membranes are normal and external auditory canals are clear. Oropharynx with no redness, swelling, or masses, exudates, or evidence of obstruction, uvula midline. Mucous membranes moist. Neck: Trachea midline, no thyromegaly or masses palpated, and no cervical lymphadenopathy. Supple, full range of motion without nuchal rigidity, or vertebral point tenderness. No Meningismus. Chest/axilla: Normal chest wall appearance and motion. Nontender with no deformity. No lesions are appreciated. Cardiovascular: Regular rate and rhythm with a normal S1 and S2. No gallops, murmurs, or rubs. Normal PMI, no JVD. No pulse deficits. Respiratory: Lungs have equal breath sounds bilaterally, clear to auscultation and percussion. No rales, rhonchi or wheezes noted. No increased work of breathing, no retractions or nasal flaring. Abdomen/GI: Soft, non-tender, with normal bowel sounds. No distension or tympany. No guarding or rebound. No evidence of tenderness throughout. Back: No spinal tenderness. No costovertebral tenderness. Full range of motion. Skin: Warm, dry with normal turgor. Normal color with no rashes, no lesions, and no evidence of cellulitis. MS/ Extremity: Pulses equal, no cyanosis. Neurovascular intact. Full, normal range of motion. Neuro: Awake and alert, GCS 15, oriented to person, place, time, and situation. Cranial nerves II-XII grossly intact. Motor strength 5/5 in all extremities. Sensory grossly intact. Cerebellar exam normal. Normal gait. Psych: Awake, alert, with orientation to person, place and time. Behavior, mood, and affect are within normal limits. Vital Signs: 12:13 BP 110 / 72; Pulse 85; Resp 18; Temp 98.6(O); Pulse Ox 98% on R/A; Weight 70.76 kg; ph Height 5 ft. 6 in. (167.64 cm); 14:02 BP 109 / 78; Pulse 89; Resp 20; Pulse Ox 100% on R/A; sm4 15:46 BP 106 / 78; Pulse 104; Resp 24; Pulse Ox 100% on R/A; sm4 12:13 Body Mass Index 25.18 (70.76 kg, 167.64 cm) ph MDM: 13:07 Patient medically screened. [facility] 14:34 Data reviewed: vital signs, nurses notes, lab test result(s), EKG, radiologic studies, louis plain films. 06/16 13:21 Order name: Basic Metabolic Panel; Complete Time: 14:29 [facility] 06/16 13:21 Order name: CBC with Diff; Complete Time: 14:29 [facility] 06/16 13:21 Order name: Ckmb; Complete Time: 14:29 [facility] 06/16 13:21 Order name: CPK; Complete Time: 14:29 [facility] 06/16 13:21 Order name: LFT's; Complete Time: 14:29 [facility] 06/16 13:21 Order name: Magnesium; Complete Time: 14:29 [facility] 06/16 13:21 Order name: NT PRO-BNP; Complete Time: 14:29 [facility] 06/16 13:21 Order name: PT-INR; Complete Time: 14:29 [facility] 06/16 13:21 Order name: Ptt, Activated; Complete Time: 14:29 [facility] 06/16 13:21 Order name: Troponin (emerg Dept Use Only); Complete Time: 14:29 [facility] 06/16 13:21 Order name: Lipase; Complete Time: 14:29 [facility] 06/16 13:21 Order name: Blood Culture Adult (2) [facility] 06/16 14:08 Order name: Urine Dipstick--Ancillary (enter results) 06/16 14:32 Order name: ABG [facility] 06/16 13:21 Order name: XRAY Chest (1 view); Complete Time: 14:29 [facility] 06/16 13:21 Order name: EKG; Complete Time: 13:22 [facility] 06/16 13:21 Order name: Cardiac monitoring; Complete Time: 13:51 [facility] 06/16 13:21 Order name: EKG - Nurse/Tech; Complete Time: 13:24 [facility] 06/16 13:21 Order name: IV Saline Lock; Complete Time: 13:51 [facility] 06/16 13:21 Order name: Labs collected and sent; Complete Time: 13:51 [facility] 06/16 13:21 Order name: O2 Per Protocol; Complete Time: 13:51 [facility] 06/16 13:21 Order name: O2 Sat Monitoring; Complete Time: 13:51 [facility] 06/16 13:21 Order name: Urine Dipstick-Ancillary (obtain specimen); Complete Time: 13:51 [facility] Administered Medications: 13:58 Drug: NS 0.9% 1000 ml Route: IV; Rate: 1 bolus; Site: left hand; 4 15:53 Follow up: Response: No adverse reaction [facility] 14:52 CANCELLED (Duplicate Order): Insulin Regular Human 10 units IVP once [facility] 14:52 CANCELLED (Duplicate Order): Insulin Regular Human 10 units Sub-Q once [facility] 15:00 Drug: Rocephin - (cefTRIAXone) 1 grams Route: IVPB; Infused Over: 30 mins; Site: left [facility] hand; 15:27 Follow up: IV Status: Completed infusion 4 15:22 Drug: Zithromax 500 mg Route: IVPB; Infused Over: 1 hrs; Site: left hand; 4 15:24 Drug: Insulin Regular Human 6 units {Co-Signature: ss (Daniela Campos RN).} Route: IVP; 4 Infused Over: 1 mins; Site: left hand; 15:53 Follow up: Response: No adverse reaction 4 15:25 Drug: NS 0.9% 1000 ml Route: IV; Rate: 1 bolus; Site: left hand; 4 15:52 Follow up: IV Status: Completed infusion; IV Intake: 1000ml 4 15:30 Drug: Insulin Drip - (Insulin Regular Human 100 units, NS 0.9% 100 ml) {Co-Signature: [facility] jl7 (Nolan Powell RN).} Route: IV; Rate: 4 units/hr; Site: left hand; 15:45 Drug: Zofran 4 mg Route: IVP; Site: left hand; sm4 15:52 Drug: NS 0.9% 1000 ml Route: IV; Rate: 1 bolus; Site: left hand; sm4 16:26 Drug: Zofran 4 mg Route: IVP; Site: left hand; sm4 16:59 Drug: NS 0.9% 1000 ml Route: IV; Rate: 125 ml/hr; Site: left hand; ph Point of Care Testing: Blood Glucose: 12:13 Blood Glucose: 285 mg/dL; ph 16:52 Blood Glucose: 192 mg/dL; sm4 16:52 insulin drip infusing at 4units/hr sm4 Ranges: Critical Glucose Levels:Adult <50 mg/dl or >400 mg/dl <40 mg/dl or >180 mg/dl Disposition: 06/16/18 14:36 Hospitalization ordered by Heath Schmidt for Inpatient Admission. Preliminary diagnosis are Type 1 diabetes mellitus, Cough, Fever, unspecified, Diabetes mellitus due to underlying condition with ketoacidosis without coma. - Bed requested for Intensive Care Unit. - Status is Inpatient Admission. 4 - Condition is Fair. - Problem is new. - Symptoms have improved. UTI on Admission? No Signatures: Dispatcher [employer] EDMS Jerry Herrera MD MD cha Hall, Patricia, RN RN Gemma Handley Sean, RN RN sm4 Daniela Campos RN Nolan Powell RN jl7 Corrections: (The following items were deleted from the chart) 14:52 14:32 Insulin Regular Human 10 units IVP once ordered. [facility] 14:52 14:32 Insulin Regular Human 10 units Sub-Q once ordered. [facility] 14:55 14:36 Hospitalization Ordered by Heath Schmidt DO for Inpatient Admission. Preliminary [facility] diagnosis is Type 1 diabetes mellitus; Cough; Fever, unspecified. Bed requested for Telemetry/MedSurg (Inpatient). Status is Inpatient Admission. Condition is Fair. Problem is new. Symptoms have improved. UTI on Admission? No. [facility] 14:55 14:55 06/16/2018 14:36 Hospitalization Ordered by Heath Schmidt DO for Inpatient [facility] Admission. Preliminary diagnosis is Type 1 diabetes mellitus; Cough; Fever, unspecified; Diabetes mellitus due to underlying condition with ketoacidosis without coma. Bed requested for Telemetry/MedSurg (Inpatient). Status is Inpatient Admission. Condition is Fair. Problem is new. Symptoms have improved. UTI on Admission? No. [facility] 16:36 14:55 06/16/2018 14:36 Hospitalization Ordered by Heath Schmidt DO for Inpatient eb Admission. Preliminary diagnosis is Type 1 diabetes mellitus; Cough; Fever, unspecified; Diabetes mellitus due to underlying condition with ketoacidosis without coma. Bed requested for Intensive Care Unit. Status is Inpatient Admission. Condition is Fair. Problem is new. Symptoms have improved. UTI on Admission? No. [facility] 17:12 12:13 PMHx: Diabetes - NIDDM; ph sm4 17:13 16:36 06/16/2018 14:36 Hospitalization Ordered by Heath Schmidt DO for Inpatient 4 Admission. Preliminary diagnosis is Type 1 diabetes mellitus; Cough; Fever, unspecified; Diabetes mellitus due to underlying condition with ketoacidosis without coma. Bed requested for Intensive Care Unit. Status is Inpatient Admission. Condition is Fair. Problem is new. Symptoms have improved. UTI on Admission? No. eb
--- NOTE | 2018-06-16 14:37 | ER ---
Nurse's Notes [facility] Name: Raphael Su Age: 37 yrs Sex: Female : 1980 Arrival Date: 06/16/2018 Time: 11:13 Bed 19 Private MD: Tashi Callaway H Diagnosis: Type 1 diabetes mellitus;Cough;Fever, unspecified;Diabetes mellitus due to underlying condition with ketoacidosis without coma Presentation: 06/16 12:07 Presenting complaint: Patient states: I've been running a fever off and on and I've had ph a cough for 3 days, my sugar has also been high and I can't keep it down." Reports BGL 380 at home, self administered 20 units of regular insulin,. BGL 285 in triage. Pt denies V/D. Transition of care: patient was not received from another setting of care. Onset of symptoms was June 16, 2018. Risk Assessment: Do you want to hurt yourself or someone else? Patient reports no desire to harm self or others. Initial Sepsis Screen: Does the patient meet any 2 criteria? No. Patient's initial sepsis screen is negative. Does the patient have a suspected source of infection? No. Patient's initial sepsis screen is negative. Care prior to arrival: None. 12:07 Method Of Arrival: Ambulatory ph 12:07 Acuity: SHARON 3 ph Triage Assessment: 14:00 General: Behavior is calm, cooperative. Pain: Denies pain. sm4 Historical: - Allergies: 12:13 Bactrim; ph 12:13 Lantus; ph - PMHx: 17:12 Diabetes - IDDM; sm4 - PSHx: 12:13 Tubal ligation; ph - Immunization history:: Adult Immunizations up to date. - Social history:: Smoking status: Patient uses tobacco products, smokes one-half pack cigarettes per day. - Ebola Screening: : Patient denies exposure to infectious person Patient denies travel to an Ebola-affected area in the 21 days before illness onset No symptoms or risks identified at this time. Screenin:59 Abuse screen: Denies threats or abuse. Nutritional screening: No deficits noted. sm4 Tuberculosis screening: No symptoms or risk factors identified. Fall Risk IV access (20 points). Assessment: 13:53 General: Appears in no apparent distress. comfortable, well developed, well nourished. sm4 Neuro: No deficits noted. Cardiovascular: No deficits noted. Reports palpitations, pt states having elevated heart rate w/ intermittent fever over last several days. Respiratory: No deficits noted. GI: No deficits noted. : No deficits noted. EENT: No deficits noted. Derm: No deficits noted. Musculoskeletal: No deficits noted. Injury Description:. Vital Signs: 12:13 BP 110 / 72; Pulse 85; Resp 18; Temp 98.6(O); Pulse Ox 98% on R/A; Weight 70.76 kg; ph Height 5 ft. 6 in. (167.64 cm); 14:02 BP 109 / 78; Pulse 89; Resp 20; Pulse Ox 100% on R/A; sm4 15:46 BP 106 / 78; Pulse 104; Resp 24; Pulse Ox 100% on R/A; sm4 12:13 Body Mass Index 25.18 (70.76 kg, 167.64 cm) ph ED Course: 11:13 Patient arrived in ED. sb2 11:14 Tashi Callaway DO is Private Physician. sb2 12:13 Triage completed. ph 12:14 Arm band placed on Patient placed in waiting room, Patient notified of wait time. ph 13:07 Jerry Herrera MD is Attending Physician. louis 13:24 Mario Alberto Meredith, RN is Primary Nurse. sm4 13:28 EKG done, by train electronic technician. reviewed by Jerry Herrera MD. sm3 13:51 Blood Culture Adult (2) Sent. sm4 13:51 Lipase Sent. sm4 13:52 X-ray completed. Portable x-ray completed in exam room. jr1 13:52 Basic Metabolic Panel Sent. sm4 13:52 CBC with Diff Sent. sm4 13:52 Ckmb Sent. sm4 13:52 CPK Sent. sm4 13:52 LFT's Sent. sm4 13:52 Magnesium Sent. sm4 13:52 NT PRO-BNP Sent. sm4 13:52 PT-INR Sent. sm4 13:52 Ptt, Activated Sent. sm4 13:52 Troponin (emerg Dept Use Only) Sent. sm4 13:53 XRAY Chest (1 view) In Process Unspecified. EDMS 13:53 Inserted saline lock: 20 gauge in left hand, using aseptic technique. Blood collected. sm4 13:55 Urine collected: clean catch specimen, clear, jessica colored. jp3 13:59 Patient has correct armband on for positive identification. Placed in gown. Bed in low sm4 position. Call light in reach. Side rails up X 1. Adult w/ patient. 13:59 No provider procedures requiring assistance completed. 4 14:35 Heath Schmidt DO is Hospitalizing Provider. louis 15:28 Urine Dipstick--Ancillary (enter results) Sent. 4 15:28 Blood Culture Adult (2) Sent. sm4 17:11 Patient admitted, IV remains in place. intact, No redness/swelling at site. 4 Administered Medications: 13:58 Drug: NS 0.9% 1000 ml Route: IV; Rate: 1 bolus; Site: left hand; [facility] 15:53 Follow up: Response: No adverse reaction [facility] 14:52 CANCELLED (Duplicate Order): Insulin Regular Human 10 units IVP once [facility] 14:52 CANCELLED (Duplicate Order): Insulin Regular Human 10 units Sub-Q once [facility] 15:00 Drug: Rocephin - (cefTRIAXone) 1 grams Route: IVPB; Infused Over: 30 mins; Site: left [facility] hand; 15:27 Follow up: IV Status: Completed infusion 4 15:22 Drug: Zithromax 500 mg Route: IVPB; Infused Over: 1 hrs; Site: left hand; [facility] 15:24 Drug: Insulin Regular Human 6 units {Co-Signature: ss (Daniela Campos RN).} Route: IVP; 4 Infused Over: 1 mins; Site: left hand; 15:53 Follow up: Response: No adverse reaction [facility] 15:25 Drug: NS 0.9% 1000 ml Route: IV; Rate: 1 bolus; Site: left hand; 4 15:52 Follow up: IV Status: Completed infusion; IV Intake: 1000ml [facility] 15:30 Drug: Insulin Drip - (Insulin Regular Human 100 units, NS 0.9% 100 ml) {Co-Signature: Eliana jl7 (Nolan Powell RN).} Route: IV; Rate: 4 units/hr; Site: left hand; 15:45 Drug: Zofran 4 mg Route: IVP; Site: left hand; [facility] 15:52 Drug: NS 0.9% 1000 ml Route: IV; Rate: 1 bolus; Site: left hand; 4 16:26 Drug: Zofran 4 mg Route: IVP; Site: left hand; 4 16:59 Drug: NS 0.9% 1000 ml Route: IV; Rate: 125 ml/hr; Site: left hand; Point of Care Testing: Blood Glucose: 12:13 Blood Glucose: 285 mg/dL; ph 16:52 Blood Glucose: 192 mg/dL; sm4 16:52 insulin drip infusing at 4units/hr 4 Ranges: Intake: 15:52 IV: 1000ml; Total: 1000ml. 4 Outcome: 14:36 Decision to Hospitalize by Provider. louis 17:10 Admitted to ICU accompanied by nurse, accompanied by tech, via stretcher, on monitor, 4 with chart, Report called to elier magaña 17:11 Condition: stable 4 17:13 Patient left the ED. 4 Signatures: Dispatcher [employer] EDJerry Noel MD MD cha Ringgold, Jennifer jr1 Lili Ellis, RN RN Margaret Baeza 2 Amy Modi sm3 Bart Stone jp3 Mario Alberto Meredith, RN RN sm4 Daniela Campos RN ss Nolan Powell RN jl7 Corrections: (The following items were deleted from the chart) 16:53 16:51 Blood Glucose: Blood Glucose Tlrvuan=769 mg/dL. 4 4 17:12 12:13 PMHx: Diabetes - NIDDM; ph 4
[2018-06-16] MEDS ORDERED: D50W 25 GM/50 ML SYRINGE IV PRN ×2 (14:39→14:40)
[2018-06-16] MEDS ORDERED: GLUCAGON 1 MG/VIAL IM PRN ×2 (14:39→14:40)
[2018-06-16 14:49] LABS: Arterial Blood Carboxyhemoglob 1.8 % (0-1.5); Blood Gas Oxyhemoglobin 95.1 % (94-97)
[2018-06-16] MEDS ORDERED: NA CHLORIDE 0.9% 3,000 ML ONE (15:04)
[2018-06-16] MEDS ORDERED: CEFTRIAXONE/SWI 1gm 1 GM/10 ML SYR ONE (15:04)
[2018-06-16] MEDS ORDERED: AZITHROMYCIN 500 MG/250 ML BAG ONE (15:05)
[2018-06-16] MEDS ORDERED: INSULIN -REGULAR HUMAN 50 UNIT/0.5 ML ML ONE (15:08)
[2018-06-16] MEDS ORDERED: INSULIN -REGULAR HUMAN 100 UNIT in NA CHLORIDE 0.9% 100 ML IV SCH (15:15)
[2018-06-16] MEDS ORDERED: NA CHLORIDE 0.9% 1,000 ML IV ONE (15:20)
[2018-06-16] MEDS ORDERED: ONDANSETRON 4 MG/2 ML VIAL IV PRN (15:20)
[2018-06-16] MEDS ORDERED: ONDANSETRON 4 MG/2 ML VIAL ONE ×2 (15:48→16:25)
[2018-06-16] MEDS ORDERED: D5 0.45 NS 1,000 ML IV SCH (16:00)
[2018-06-16] MEDS ORDERED: NACHLORIDE 0.45% 1,000 ML IV SCH (16:00)
[2018-06-16] MEDS: INSULIN -REGULAR HUMAN 50 UNIT/0.5 ML ML SQ SCH ×2 (16:30→21:00)
[2018-06-16 17:23] VITALS: O2SAT 100
[2018-06-16 17:26] VITALS: BMI 27.1
[2018-06-16 17:29] LABS: Urine Blood TRACE (NEG); Urine Glucose 2+ (NEG); Urine Protein 1+ (NEG); Urine pH 5.5 (5.0-7.0)
--- NOTE | 2018-06-16 17:46 | P.HP ---
Certification for Inpatient Patient admitted to: Inpatient With expected LOS: >2 Midnights Patient will require the following post-hospital care: None Practitioner: I am a practitioner with admitting privileges, knowledge of patient current condition, hospital course, and medical plan of care. Services: Services provided to patient in accordance with Admission requirements found in Title 42 Section 412.3 of the Code of Federal Regulations Patient History Date of Service: 06/16/18 Primary Care Provider: Dr. Callaway Reason for admission: Nausea and vomiting History of Present Illness: 37-year-old female presented emergency room with increased nausea and vomiting. She has reported increasing fatigue. Nausea vomiting has been reported over the last several days. Patient with type 1 diabetes. She takes Levemir. Blood sugars have remained elevated at home. No sick contacts noted No cough noted. No dysuria. In the ER patient was evaluated. Patient found to be in DKA. Patient started on insulin drip and IV fluids. Patient stable at this time. When I saw the patient ER, she did not appear in any distress. Allergies insulin glargine [From Lantus] Allergy (Verified 01/26/18 21:02) Unknown sulfamethoxazole [From Bactrim] Allergy (Verified 11/20/17 05:16) Hives trimethoprim [From Bactrim] Allergy (Verified 11/20/17 05:16) Hives Home Medications: Insulin Detemir [Levemir] 20 unit SQ BID #2 vial 01/27/18 - Past Medical/Surgical History Diabetic: Yes -: Diabetes mellitus type 1 -: Tobacco abuse -: COPD -: Tubal ligation Psychosocial/ Personal History: The patient is . She has 4 children. She works at a local [employer] - Family History Father -: Diabetes Mother -: Diabetes - Social History Smoking Status: Heavy Tobacco smoker (>10 cigarettes/day) Counseled patient to stop smoking for: less than 10 minutes Smoking therapy provided: Yes Patient receptive to therapy: Yes Alcohol use: No CD- Drugs: No Caffeine use: Yes Place of Residence: Home Review of Systems General: Weakness, As per HPI Eyes: Unremarkable ENT: Unremarkable Respiratory: Unremarkable Cardiovascular: Unremarkable Gastrointestinal: Nausea, Vomiting, As per HPI Musculoskeletal: Unremarkable Integumentary: Unremarkable Neurological: Unremarkable Lymphatics: Unremarkable Physical Examination - Vital Signs Temperature: 98.6 F Blood Pressure: 106/78 Pulse: 104 Respirations: 24 - Physical Exam General: Alert, In no apparent distress, Oriented x3, Cooperative HEENT: Atraumatic, Normocephalic, Other (Dry mucous membranes) Neck: Supple, No Thyromegaly Respiratory: Clear to auscultation bilaterally, Normal air movement Cardiovascular: Normal pulses, Regular rate/rhythm Gastrointestinal: Normal bowel sounds, Soft and benign, Non-distended, No tenderness, No masses, No rebound, No guarding Musculoskeletal: No erythema, No tenderness, No warmth Integumentary: No tenderness/swelling, No erythema, No warmth, No cyanosis Neurological: Normal speech, Normal strength at 5/5 x4 extr, Normal tone, Normal affect - Studies Laboratory Data (last 24 hrs) 06/16/18 13:35: PT 10.8, INR 0.92, APTT 35.1 06/16/18 13:35: WBC 4.8, Hgb 12.4, Hct 37.6, Plt Count 211 06/16/18 13:35: Sodium 136, Potassium 4.2, BUN 8, Creatinine 0.60, Glucose 387 H , Magnesium 1.8, Total Bilirubin 0.4, AST 13 L, ALT 14, Alkaline Phosphatase 77 , Lipase 96 Assessment and Plan - Plan Impression: Diabetic ketoacidosis Type 1 diabetes Tobacco abuse Nausea and vomiting GERD Plan: Patient will be admitted to ICU. Will continue with insulin drip and IV fluids. Will continue with DKA protocol. Will monitor electrolytes. Once her gap has closed. Will transition to Levemir. Will monitor nausea and vomiting. Provide medication. Patient likely with GERD. Will start Protonix. Will continue to reassess and monitor closely. Anticipate discharge in the next 24- 48 hr. Discharge Plan: Home Plan to discharge in: 48 Hours - Advance Directives Does patient have a Living Will: No Does patient have a Durable POA for Healthcare: No - Code Status/Comfort Care Code Status Assessed: Yes Time Spent Managing Pts Care (In Minutes): 55
[2018-06-16] MEDS: ENOXAPARIN 40 MG/0.4 ML SQ SCH (17:53)
[2018-06-16 18:46] LABS: BUN Blood Urea Nitrogen 7 mg/dL (7-18); Bicarbonate 15 mmol/L (21-32); Glucose Level 139 mg/dL (74-106); Potassium 3.6 mmol/L (3.5-5.1); Sodium Level 140 mmol/L (136-145)
[2018-06-16 20:05] LABS: BUN Blood Urea Nitrogen 6 mg/dL (7-18); Glucose Level 139 mg/dL (74-106); Potassium 3.5 mmol/L (3.5-5.1); Sodium Level 144 mmol/L (136-145)
[2018-06-16 20:16] LABS: Bicarbonate 14 mmol/L (21-32)
[2018-06-16] MEDS ORDERED: INSULIN GLARGINE 100 UNITS/ML SQ SCH (21:00)
[2018-06-16] MEDS: D5 0.45 NS 1,000 ML IV SCH (21:00)
[2018-06-16 21:15] LABS: Barbiturates NEGATIVE (NEGATIVE); Benzodiazepines NEGATIVE (NEGATIVE); Cocaine NEGATIVE (NEGATIVE); METHAMPHETAM NEGATIVE (NEGATIVE); Methadone NEGATIVE (NEGATIVE); Opiates NEGATIVE (NEGATIVE); Phencyclidine NEGATIVE (NEGATIVE); THC Cannibis NEGATIVE (NEGATIVE)
[2018-06-17] MEDS: D5 0.45 NS 1,000 ML IV SCH ×3 (00:09→09:40)
[2018-06-17 00:13] LABS: BUN Blood Urea Nitrogen 6 mg/dL (7-18); Bicarbonate 17 mmol/L (21-32); Glucose Level 282 mg/dL (74-106); Potassium 3.8 mmol/L (3.5-5.1); Sodium Level 141 mmol/L (136-145)
[2018-06-17] MEDS ORDERED: INSULIN DETEMIR 20 UNIT SQ SCH (01:24)
--- NOTE | 2018-06-17 04:18 | EKG ---
Test Date: 2018-06-16 Test Time: 13:21:28 Application Architect Manager: DEMETRIA MEASUREMENT RESULTS: Intervals: Rate: 86 AR: 170 QRSD: 86 QT: 378 QTc: 452 [place]: P: 68 AR: 170 QRS: 68 T: 63 INTERPRETIVE STATEMENTS: Normal sinus rhythm Normal ECG Compared to ECG 01/26/2018 12:54:21 No significant changes Electronically Signed On 06-17-18 04:16:54 CDT by Amador Sims
[2018-06-17 05:45] LABS: Absolute Lymphocytes (CBC) 2.4 K/uL (0.7-4.9); Absolute Monocytes 0.4 K/uL (0.1-1.3); Absolute Neutrophil 1.6 K/uL (1.8-8.0); Basophils % 1.3 % (0-1.3); Eosinophils % 1.7 % (0-4.4); Hematocrit 32.1 % (36.0-45.0); Lymphocytes % 53.4 % (15.3-44.8); MCV 83.4 fL (80-100); MPV 9.6 fL (7.6-11.3); Monocytes % 9.2 % (3.3-12.3); RBC Red Blood Cell Count 3.85 M/uL (3.86-4.86)
[2018-06-17 05:57] LABS: BUN Blood Urea Nitrogen 6 mg/dL (7-18); Bicarbonate 17 mmol/L (21-32); Glucose Level 111 mg/dL (74-106); HDL Cholesterol 32 mg/dL (40-60); LDL Cholesterol, Calculated 127 (<130); Magnesium 1.6 mg/dL (1.8-2.4); Potassium 3.3 mmol/L (3.5-5.1); Sodium Level 144 mmol/L (136-145)
[2018-06-17] MEDS ORDERED: MAGNESIUM SULFATE 1 gm IVPB 1 GM/100 ML BAG IV ONE (06:26)
[2018-06-17] MEDS: INSULIN -REGULAR HUMAN 50 UNIT/0.5 ML ML SQ SCH ×2 (07:30→12:13)
[2018-06-17] MEDS ORDERED: GLUCAGON 1 MG/VIAL IM PRN (08:44)
[2018-06-17] MEDS ORDERED: D50W 25 GM/50 ML SYRINGE IV PRN (08:44)
[2018-06-17] MEDS ORDERED: POTASSIUM 25 MEQ EFFERV TAB PO ONE (08:55)
[2018-06-17] MEDS ORDERED: NPH (HUMAN) 100 UNITS/ML INSULIN SQ SCH (09:00)
[2018-06-17] MEDS: ENOXAPARIN 40 MG/0.4 ML SQ SCH (09:39)
[2018-06-17] MEDS ORDERED: NACHLORIDE 0.45% 1,000 ML IV SCH (12:00)
[2018-06-17 13:09] LABS: BUN Blood Urea Nitrogen 4 mg/dL (7-18); Bicarbonate 22 mmol/L (21-32); Glucose Level 320 mg/dL (74-106); Potassium 4.1 mmol/L (3.5-5.1); Sodium Level 142 mmol/L (136-145)
--- NOTE | 2018-06-17 13:33 | P.DS ---
Admission Date: 06/16/18 Discharge Date: 06/17/18 Primary Care Provider: Dr. Callaway Disposition: ROUTINE DISCHARGE Discharge Condition: GOOD Reason for Admission: Nausea and vomiting - Problems (1) Nausea & vomiting Onset Date: 06/17/18 Current Visit: Yes Status: Acute (2) Dehydration Onset Date: 11/20/17 Current Visit: No Status: Acute (3) Diabetes mellitus Onset Date: 11/20/17 Current Visit: No Status: Chronic Qualifiers: Diabetes mellitus type: type 1 Diabetes mellitus complication status: with ketoacidosis Diabetes mellitus complication detail: without coma Qualified Code(s): E10.10 - Type 1 diabetes mellitus with ketoacidosis without coma (4) Tobacco abuse Onset Date: 11/20/17 Current Visit: No Status: Chronic (5) GERD (gastroesophageal reflux disease) Onset Date: 11/20/17 Current Visit: No Status: Suspected Qualifiers: Esophagitis presence: esophagitis presence not specified Qualified Code(s) : K21.9 - Gastro-esophageal reflux disease without esophagitis (6) DKA (diabetic ketoacidoses) Onset Date: 11/20/17 Current Visit: No Status: Resolved Qualifiers: Diabetes mellitus type: type 1 Diabetes mellitus complication detail: without coma Qualified Code(s): E10.10 - Type 1 diabetes mellitus with ketoacidosis without coma Brief History of Present Illness: 37-year-old female presented emergency room with increased nausea and vomiting. She has reported increasing fatigue. Nausea vomiting has been reported over the last several days. Patient with type 1 diabetes. She takes Levemir. Blood sugars have remained elevated at home. No sick contacts noted No cough noted. No dysuria. In the ER patient was evaluated. Patient found to be in DKA. Patient started on insulin drip and IV fluids. Patient stable at this time. When I saw the patient ER, she did not appear in any distress. Hospital Course: Patient presented with nausea and vomiting. Patient found to have diabetic ketoacidosis. Patient with history of diabetes type 1. Patient was treated for DKA. Patient did well in the course of her stay. DKA resolved. At discharge she will continue with Levemir 20 units subcu twice daily. Recommendation is to maintain blood sugars less than 140 fasting and less than 200 after meals. Further adjustment can be done by her PCP. Patient may need to increase her Levemir by 1-2 units if blood sugars remain above 200 consistently. Recommendation is for the patient to follow up with Endocrinology as an outpatient for better control of her diabetes. Hemoglobin A1c 12.0. Compliance with diet and medication addressed in detail. Patient likely has GERD. Patient may take [id number] Nexium 40 mg daily. If this persists, Recommendation is for the patient to follow up with GI as an outpatient to further address. Tobacco cessation education provided at discharge. Recommendation is to continue with tobacco cessation. Vital Signs/Physical Exam: Temp Pulse Resp BP Pulse Ox 98 F 78 17 90/58 L 100 06/17/18 04:00 06/17/18 10:00 06/17/18 10:00 06/17/18 10:00 06/16/18 17:05 General: Alert, In no apparent distress, Oriented x3, Cooperative HEENT: Atraumatic Neck: Supple Respiratory: Clear to auscultation bilaterally, Normal air movement Cardiovascular: Normal pulses, Regular rate/rhythm Gastrointestinal: Normal bowel sounds, Soft and benign, Non-distended, No tenderness, No masses, No rebound, No guarding Musculoskeletal: No erythema, No tenderness, No warmth Integumentary: No tenderness/swelling, No erythema, No warmth, No cyanosis Neurological: Normal speech, Normal strength at 5/5 x4 extr, Normal tone, Normal affect Laboratory Data at Discharge: WBC 4.5 K/uL (4.3-10.9) 06/17/18 05:18 Hgb 10.8 g/dL (12.0-15.0) L 06/17/18 05:18 Hct 32.1 % (36.0-45.0) L 06/17/18 05:18 Plt Count 174 K/uL (152-406) 06/17/18 05:18 PT 10.8 SECONDS (9.5-12.5) 06/16/18 13:35 INR 0.92 06/16/18 13:35 APTT 35.1 SECONDS (24.3-36.9) 06/16/18 13:35 Sodium 142 mmol/L (136-145) 06/17/18 12:03 Potassium 4.1 mmol/L (3.5-5.1) 06/17/18 12:03 BUN 4 mg/dL (7-18) L 06/17/18 12:03 Creatinine 0.50 mg/dL (0.55-1.3) L 06/17/18 12:03 Glucose 320 mg/dL (74-106) H 06/17/18 12:03 Magnesium 1.6 mg/dL (1.8-2.4) L 06/17/18 05:18 Total Bilirubin 0.4 mg/dL (0.2-1.0) 06/16/18 13:35 AST 13 U/L (15-37) L 06/16/18 13:35 ALT 14 U/L (12-78) 06/16/18 13:35 Alkaline Phosphatase 77 U/L (45-117) 06/16/18 13:35 Triglycerides 91 mg/dL (<150) 06/17/18 05:18 Cholesterol 177 mg/dL (<200) 06/17/18 05:18 HDL Cholesterol 32 mg/dL (40-60) L 06/17/18 05:18 Cholesterol/HDL Ratio 5.53 06/17/18 05:18 Lipase 96 U/L (73-393) 06/16/18 13:35 Home Medications: RX: Insulin Detemir [Levemir] 20 unit SQ BID #2 vial 06/17/18 New Medications: RX: Insulin Detemir [Levemir] 20 unit SQ BID #2 vial Patient Discharge Instructions: 1. Patient will need to follow up the PCP in 1 week to follow up this hospitalization. 2. Patient presented with nausea and vomiting. Patient found to have diabetic ketoacidosis. Patient with history of diabetes type 1. Patient was treated for DKA. Patient did well in the course of her stay. DKA resolved. At discharge she will continue with Levemir 20 units subcu twice daily. Recommendation is to maintain blood sugars less than 140 fasting and less than 200 after meals. Further adjustment can be done by her PCP. Patient may need to increase her Levemir by 1-2 units if blood sugars remain above 200 consistently. Recommendation is for the patient to follow up with Endocrinology as an outpatient for better control of her diabetes. Hemoglobin A1c 12.0. Compliance with diet and medication addressed in detail. 3. Patient likely has GERD. Patient may take [id number] Nexium 40 mg daily. If this persists, Recommendation is for the patient to follow up with GI as an outpatient to further address. 4. Tobacco cessation education provided at discharge. Recommendation is to continue with tobacco cessation. Diet: ADA Activity: Ad anthony Time spent managing pt's care (in minutes): 55
[2018-06-17 14:43] VITALS: BP 102/76; TEMP 98.6
== END 2018-06-17 14:30 | disposition home or self-care (01) | DRG 639 ==
LOC: ER 11:12 → ERHOLD 14:38 → OBSVTOIN 15:21 → 3RD-ICU 16:49
PROVIDERS: ADMIT Family Medicine; ATTEND Family Medicine
DX: E10.10 Type 1 diabetes mellitus with ketoacidosis without coma (principal); E86.0 Dehydration; J44.9 Chronic obstructive pulmonary disease, unspecified; K21.9 Gastro-esophageal reflux disease without esophagitis; F17.210 Nicotine dependence, cigarettes, uncomplicated; Z88.1 Allergy status to other antibiotic agents; Z88.2 Allergy status to sulfonamides; Z88.8 Allergy status to other drugs, medicaments and biological substances
CPT/HCPCS: 36415; 71045; 80048; 80061; 80076; 80307; 81003; 82550; 82553; 82805; 82962; 83036; 83690; 83735; 83880; 84439; 84443; 84484; 85025; 85610; 85730; 87040; 93005; 96365; 96375; 99285; J0456; J0696; J1650; J2405; J3475; J7030

== ENCOUNTER 2019-11-23 09:29 | Emergency (ER) | payer BC ==
--- NOTE | 2019-11-23 11:26 | ER ---
Nurse's Notes [facility] Name: Raphael Su Age: 39 yrs Sex: Female : 1980 Arrival Date: 11/23/2019 Time: 09:33 Bed 3 Private MD: Diagnosis: Tension-type headache;Other peripheral vertigo, right ear Presentation: 11/23 10:01 Presenting complaint: Patient states: Pain to top of head that radiates down towards ss neck and dizziness x 1 month that became much worse today. Transition of care: patient was not received from another setting of care. Onset of symptoms is unknown. Risk Assessment: Do you want to hurt yourself or someone else? Patient reports no desire to harm self or others. Initial Sepsis Screen: Does the patient meet any 2 criteria? HR > 90 bpm. Does the patient have a suspected source of infection? No. Patient's initial sepsis screen is negative. Care prior to arrival: None. 10:01 Method Of Arrival: Ambulatory 10:01 Acuity: SHARON 3 ss Historical: - Allergies: 10:03 Bactrim; ss 10:03 Lantus; ss - Home Meds: 10:03 tresiba [Active]; atorvastatin oral oral [Active]; ss - PMHx: 10:03 Diabetes - IDDM; High Cholesterol; ss - PSHx: 10:03 Tubal ligation; ss - Immunization history:: Adult Immunizations up to date. - Coronavirus screen:: The patient has NOT traveled to [place], [place], or [place] in the past 14 days. Proceed with normal triage process as indicated. - Social history:: Smoking status: Patient reports the use of cigarette tobacco products, smokes one pack cigarettes per day. - Ebola Screening: : Patient denies exposure to infectious person Patient denies travel to an Ebola-affected area in the 21 days before illness onset. Screenin:51 Abuse screen: Denies threats or abuse. Denies injuries from another. Nutritional sv screening: No deficits noted. Tuberculosis screening: No symptoms or risk factors identified. Fall Risk None identified. Assessment: 10:49 General: Appears in no apparent distress. uncomfortable, well groomed, well developed, sv Behavior is calm, cooperative, appropriate for age. Pain: Complains of pain in top of head Pain currently is 6 out of 10 on a pain scale. Quality of pain is described as aching, Pain began a month ago Is continuous, Also complains of nausea, Current management - is no interventions. Neuro: Level of Consciousness is awake, alert, obeys commands, Oriented to person, place, time, situation, Assembler Finger Buffs are equal bilaterally Moves all extremities. Full function Gait is steady, Speech is normal, Facial symmetry appears normal, Facial symmetry: tongue is midline, Reports dizziness, since started at 0700 today, woke up today around 0500 with no dizziness. Stated she was sitting at her desk at work. headache on top of head weakness in right arm and left arm Denies numbness. Cardiovascular: Heart tones S1 S2 present Patient's skin is warm and dry. Rhythm is sinus rhythm. Respiratory: Airway is patent Respiratory effort is even, unlabored, Respiratory pattern is regular, symmetrical, Breath sounds are clear bilaterally. Derm: Skin is intact, Skin is pink, warm \T\ dry. Musculoskeletal: Range of motion: intact in all extremities. 11:40 Reassessment: Patient appears in no apparent distress at this time. No changes from sv previously documented assessment. Patient and/or family updated on plan of care and expected duration. Pain level reassessed. Patient is alert, oriented x 3, equal unlabored respirations, skin warm/dry/pink. Vital Signs: 10:03 BP 115 / 89; Pulse 92; Resp 15; Temp 98.2(TE); Pulse Ox 99% on R/A; Weight 81.65 kg; ss Height 5 ft. 6 in. (167.64 cm); Pain 6/10; 10:52 BP 116 / 88; Pulse 87 MON; Resp 17; Pulse Ox 100% on R/A; sv 10:03 Body Mass Index 29.05 (81.65 kg, 167.64 cm) ss 10:52 Sinus Rhythm sv ED Course: 09:33 Patient arrived in ED. mr 10:02 Triage completed. ss 10:03 Arm band placed on left wrist. ss 10:04 Alden Santana MD is Attending Physician. ps1 10:34 Karen Valencia RN is Primary Nurse. sv 10:51 Patient has correct armband on for positive identification. Placed in gown. Bed in low sv position. Call light in reach. Adult w/ patient. construction secretary on. Pulse ox on. NIBP on. Door closed. Warm blanket given. Head of bed elevated. 10:52 Awaiting ED provider evaluation. sv 11:09 ED physician to see patient. sv 11:24 Kofi Perry MD is Referral Physician. ps1 11:42 No provider procedures requiring assistance completed. Patient did not have IV access sv during this emergency room visit. Administered Medications: No medications were administered Outcome: 11:25 Discharge ordered by MD. ps1 11:42 Patient left the ED. sv 11:42 Discharged to home ambulatory, with family. sv 11:42 Condition: stable 11:42 Discharge instructions given to patient, Instructed on discharge instructions, follow up and referral plans. no drinking with medication, no driving heavy equipment, medication usage, Demonstrated understanding of instructions, follow-up care, medications, Prescriptions given X 3. Signatures: Karen Valencia, Yi Perez RN, Shelby, RN RN Alden Santana MD MD ps1
--- NOTE | 2019-11-23 11:26 | EDPHYS ---
Physician Documentation [facility] Name: Raphael Su Age: 39 yrs Sex: Female : 1980 Arrival Date: 11/23/2019 Time: 09:33 Bed 3 Private MD: ED Physician Alden Santana HPI: 11/23 11:12 This 39 yrs old Black Female presents to ER via Ambulatory with complaints of ps1 Dizziness, Head pain,Neck pain. 11:12 patient states that over a month she has had headache originating from the OA area and ps1 radiating over the apex of the head and down the right trapezius. Atraumatic. She states that it is dull pain and is affected by palpation of the skin. She states that she has been seen and evaluated for the same by Karen Patten and was given some medication that starts with the letter "A". Does not have the medication with her or know what it is. Claims it to be ineffective. She additionally attests to intermittent dizziness. Improves with closing her eyes. No fever, chills, nausea, or vomiting. . Historical: - Allergies: 10:03 Bactrim; ss 10:03 Lantus; ss - Home Meds: 10:03 tresiba [Active]; atorvastatin oral oral [Active]; ss - PMHx: 10:03 Diabetes - IDDM; High Cholesterol; ss - PSHx: 10:03 Tubal ligation; ss - Immunization history:: Adult Immunizations up to date. - Coronavirus screen:: The patient has NOT traveled to [place], [place], or [place] in the past 14 days. Proceed with normal triage process as indicated. - Social history:: Smoking status: Patient reports the use of cigarette tobacco products, smokes one pack cigarettes per day. - Ebola Screening: : Patient denies exposure to infectious person Patient denies travel to an Ebola-affected area in the 21 days before illness onset. ROS: 11:12 Constitutional: Negative for fever, chills, and weight loss, Eyes: Negative for injury, ps1 pain, redness, and discharge, ENT: Negative for injury, pain, and discharge, Cardiovascular: Negative for chest pain, palpitations, and edema, Respiratory: Negative for shortness of breath, cough, wheezing, and pleuritic chest pain, Abdomen/GI: Negative for abdominal pain, nausea, vomiting, diarrhea, and constipation, MS/Extremity: Negative for injury and deformity, Skin: Negative for injury, rash, and discoloration. 11:12 Neck: Positive for tenderness, of the occipital area, right frontal area and right side of the back of head. 11:12 Neuro: Positive for dizziness, headache. ps1 Exam: 11:12 Constitutional: This is a well developed, well nourished patient who is awake, alert, ps1 and in no acute distress. Head/Face: Normocephalic, atraumatic. 11:12 Cardiovascular: Regular rate and rhythm. No gallops, murmurs, or rubs. Normal PMI, no JVD. No pulse deficits. Respiratory: Lungs have equal breath sounds bilaterally, clear to auscultation and percussion. No rales, rhonchi or wheezes noted. No increased work of breathing, no retractions or nasal flaring. Abdomen/GI: Soft, non-tender, with normal bowel sounds. No distension or tympany. No guarding or rebound. No evidence of tenderness throughout. MS/ Extremity: Pulses equal, no cyanosis. Neurovascular intact. Full, normal range of motion. Neuro: Awake and alert, GCS 15, oriented to person, place, time, and situation. Cranial nerves II-XII grossly intact. Sensory grossly intact. 11:12 Eyes: Periorbital structures: appear normal, Pupils: equal, round, and reactive to light and accomodation, Extraocular movements: intact throughout, Nystagmus: nystagmus with fast component noted, in the right eye. 11:12 Neck: External neck: is normal, pain localized over the muscle belly in the insertion of the occipital atlanto area. Improved symptoms with palpations. . Vital Signs: 10:03 BP 115 / 89; Pulse 92; Resp 15; Temp 98.2(TE); Pulse Ox 99% on R/A; Weight 81.65 kg; ss Height 5 ft. 6 in. (167.64 cm); Pain 6/10; 10:52 BP 116 / 88; Pulse 87 MON; Resp 17; Pulse Ox 100% on R/A; sv 10:03 Body Mass Index 29.05 (81.65 kg, 167.64 cm) ss 10:52 Sinus Rhythm sv MDM: 11:12 Differential diagnosis: head injury, idiopathic dizziness, vertigo, vagal nerve ps1 irritation, trapezius spasm, peripheral nerve irritation. Data reviewed: vital signs, nurses notes. Counseling: I had a detailed discussion with the patient and/or guardian regarding: the historical points, exam findings, and any diagnostic results supporting the discharge/admit diagnosis, the need for outpatient follow up, a neurologist, to return to the emergency department if symptoms worsen or persist or if there are any questions or concerns that arise at home. 11:12 ED course: 39 y/o female with OA type headache and gaze evoked nystagmus without ps1 features of central causes. Will treat with Anaprox, Medrol, Robaxin for muscle spasm and peripheral vertigo with steroids. Follow up with neurology for further diagnostic testing outpatient. . 11:25 Patient medically screened. ps1 Administered Medications: No medications were administered Disposition: 11/23/19 11:25 Discharged to Home. Impression: Tension-type headache, Other peripheral vertigo, right ear. - Condition is Stable. - Discharge Instructions: Tension Headache, Adult, Vertigo. - Prescriptions for Anaprox DS 550 mg Oral Tablet - take 1 tablet by ORAL route every 12 hours As needed; 20 tablet. Robaxin 500 mg Oral Tablet - take 2 tablet by ORAL route every 6 hours As needed; 40 tablet. Medrol (Elías) 4 mg Oral Tablets, Dose Pack - take 1 tablet by ORAL route as directed - follow package instructions; 1 packet. - Work release form, Medication Reconciliation Form, Thank You Letter, Antibiotic Education, Prescription Opioid Use form. - Follow up: Kofi Perry MD; When: 1 week; Reason: Further diagnostic work-up, Recheck today's complaints, Continuance of care. Follow up: Emergency Department; When: As needed; Reason: Fever > 102 F, Worsening of condition. - Problem is an ongoing problem. - Symptoms are unchanged. Signatures: Karen Valencia RN RN sv Smirch, Shelby, RN RN Alden Alcantar MD MD ps1 Corrections: (The following items were deleted from the chart) 11:42 11:25 11/23/2019 11:25 Discharged to Home. Impression: Tension-type headache; Other sv peripheral vertigo, right ear. Condition is Stable. Forms are Medication Reconciliation Form, Thank You Letter, Antibiotic Education, Prescription Opioid Use. Follow up: Kofi Perry; When: 1 week; Reason: Further diagnostic work-up, Recheck today's complaints, Continuance of care. Follow up: Emergency Department; When: As needed; Reason: Fever > 102 F, Worsening of condition. Problem is an ongoing problem. Symptoms are unchanged. ps1
[2019-11-25 05:24] VITALS: TEMP 98.2
[2019-11-25 05:30] VITALS: BP 116/88; O2SAT 100
== END 2019-11-23 11:42 | disposition home or self-care (01) ==
LOC: ER 09:29
DX: G44.209 Tension-type headache, unspecified, not intractable (principal); H81.391 Other peripheral vertigo, right ear; Z88.1 Allergy status to other antibiotic agents; E11.9 Type 2 diabetes mellitus without complications; E78.5 Hyperlipidemia, unspecified
CPT/HCPCS: 99284

== ENCOUNTER 2020-06-04 08:01 | Emergency (ER) | payer BC ==
[2020-06-04] MEDS ORDERED: NA CHLORIDE 0.9% 1,000 ML ONE (08:37)
[2020-06-04] MEDS ORDERED: ONDANSETRON 4 MG/2 ML VIAL ONE (08:37)
[2020-06-04] MEDS ORDERED: MORPHINE 4 MG/ML SYR ONE (08:37)
--- NOTE | 2020-06-04 09:01 | RAD REPORT ---
EXAM DESCRIPTION: Ava Single View06/04/2020 8:42 am CLINICAL HISTORY: Shortness breath COMPARISON: 2017 FINDINGS: The lungs appear clear of acute infiltrate. The heart is normal size IMPRESSION: No acute abnormalities displayed
[2020-06-04 09:08] LABS: Basophils % 0.9 % (0-1.3); Hematocrit 37.2 % (36.0-45.0); Lymphocytes % 33.7 % (15.3-44.8); MPV 8.3 fL (7.6-11.3); RBC Red Blood Cell Count 4.31 M/uL (3.86-4.86)
[2020-06-04 09:12] LABS: Protime INR 0.97
--- NOTE | 2020-06-04 09:22 | RAD REPORT ---
EXAM DESCRIPTION: CT - Head Brain Wo Cont - 06/04/2020 9:09 am CLINICAL HISTORY: Headache COMPARISON: None. TECHNIQUE: Computed axial tomography of the head was obtained. IV contrast was not requested. All CT scans are performed using dose optimization technique as appropriate and may include automated exposure control or mA/KV adjustment according to patient size. FINDINGS: An intracranial bleed is not seen . Empty sella turcica is present The ventricles are normal in caliber. No extra-axial fluid collection is noted. Fluid within the sinuses/ mastoids is not seen. IMPRESSION: No acute intracranial abnormality is seen. If patient's symptoms persist MRI of the bra in would be recommended.
[2020-06-04 09:26] LABS: ALT/SGPT 16 U/L (12-78); AST/SGOT 15 U/L (15-37); Albumin 3.6 g/dL (3.4-5.0); Alkaline Phosphatase 72 U/L (45-117); BUN Blood Urea Nitrogen 13 mg/dL (7-18); Bicarbonate 27 mmol/L (21-32); Bilirubin Direct < 0.1 mg/dL (0-0.2); Bilirubin Total 0.4 mg/dL (0.2-1.0); Glucose Level 114 mg/dL (74-106); Magnesium 1.9 mg/dL (1.8-2.4); NT PRO-BNP 6 pg/mL (<125); Potassium 4.1 mmol/L (3.5-5.1); Protein, Total 8.2 g/dL (6.4-8.2); Sodium Level 142 mmol/L (136-145); Troponin (Emerg Dept Use Only) < 0.02 ng/mL (0.0-0.045)
--- NOTE | 2020-06-04 10:07 | RAD REPORT ---
EXAM DESCRIPTION: CT - Chest For Pe Angio - 06/04/2020 9:50 am CLINICAL HISTORY: Shortness breath COMPARISON: None. TECHNIQUE: Dynamically enhanced axial 3 mm thick images of the chest were obtained during administra tion of <100> mL Isovue 370 IV contrast. Coronal and oblique reconstruction images were generated and reviewed. Exam utilizes a protocol for optimal evaluation of pulmonary arterial tree. Maximum intensity projections 3D imaging was utilized All CT scans are performed using dose optimization technique as appropriate and may include automated exposure control or mA/KV adjustment according to patient size. FINDINGS: A pulmonary embolus is not seen. A thoracic aortic aneurysm is not noted. A pleural effusion is not seen. A pericardial effusion is not seen. A lung consolidation is not present. 17 millimeter round density right breast. Multiple small bilateral axillary lymph nodes are present. Largest measures 1 centimeter short axis IMPRESSION: Negative for a pulmonary embolism. 17 millimeter round density right breast may represent confluence of fibroglandular tissue or mass. D iagnostic right mammogram recommended for further evaluation Mild bilateral axillary lymphadenopathy may be reactive nature. It is recommended that patient have a xillary ultrasound in 3 months for re-evaluation
[2020-06-04] MEDS ORDERED: NA CHLORIDE 0.9% 100 ML IV ONE (12:27)
[2020-06-04] MEDS ORDERED: METOCLOPRAMIDE 10 MG/2mL INJ ONE (12:27)
[2020-06-04] MEDS ORDERED: KETOROLAC 30 MG/ML INJ ONE (12:27)
[2020-06-04] MEDS ORDERED: DIPHENHYDRAMINE 50 MG/ML VIAL ONE (12:27)
--- NOTE | 2020-06-04 12:35 | ER ---
Nurse's Notes [facility] Name: Raphael Su Age: 39 yrs Sex: Female : 1980 Arrival Date: 06/04/2020 Time: 08:04 Bed 6 Private MD: Diagnosis: Palpitations;Shortness of breath;Headache Presentation: 06/04 08:17 Chief complaint: Patient states: SOB AND CLEMENT SINCE Y/D. Coronavirus screen: At this bp time, the client does not indicate any symptoms associated with coronavirus-19. Ebola Screen: No symptoms or risks identified at this time. Initial Sepsis Screen: Does the patient meet any 2 criteria? HR > 90 bpm. No. Patient's initial sepsis screen is negative. Does the patient have a suspected source of infection? No. Patient's initial sepsis screen is negative. Risk Assessment: Do you want to hurt yourself or someone else? Patient reports no desire to harm self or others. Onset of symptoms is unknown. 08:17 Method Of Arrival: Ambulatory bp 08:17 Acuity: SHARON 3 bp Triage Assessment: 08:20 Headache History: The patient has had previous headaches and this one is similar to previous episodes. General: Appears in no apparent distress. uncomfortable, Behavior is cooperative, appropriate for age, anxious. Pain: Complains of pain in head Pain currently is 6 out of 10 on a pain scale. Pain began 1 day ago. Also complains of shortness of breath. EENT: No deficits noted. Neuro: Level of Consciousness is awake, alert, obeys commands, Oriented to person, place, time, situation, Appropriate for age. Cardiovascular: Rhythm is sinus tachycardia. Respiratory: Reports shortness of breath. GI: No signs and/or symptoms were reported involving the gastrointestinal system. : No signs and/or symptoms were reported regarding the genitourinary system. Derm: No deficits noted. Musculoskeletal: No deficits noted. 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 - Social history:: Smoking status: Patient denies any tobacco usage or history of. Screenin:22 Abuse screen: Denies threats or abuse. Denies injuries from another. Nutritional bp screening: No deficits noted. Tuberculosis screening: No symptoms or risk factors identified. Fall Risk None identified. Assessment: 08:22 General: SEE TRIAGE NOTE. Pain: Complains of pain in head Pain currently is 6 out of 10 bp on a pain scale. 09:18 Reassessment: Received an alert for D-Dimer Kush Jules RN notified. rb1 09:48 Reassessment: DDIMER CRITICAL RELAYED TO PROVIDER. PT RETURNED TO CT FOR PE STUDY. bp 11:35 Reassessment: ALL CURRENT ORDERS COMPLETED, VS STABLE ON MONITOR. bp 13:10 Reassessment: PT D/C HOME AMBULATORY, DX WITH HEADACHE AND PALPITATIONS. bp Vital Signs: 08:17 BP 101 / 81; Pulse 101; Resp 17; Temp 98; Pulse Ox 100% ; Weight 82.55 kg; Height 5 ft. bp 6 in. (167.64 cm); 09:48 BP 109 / 78; Pulse 93; Resp 20; Pulse Ox 100% ; bp 11:37 BP 116 / 84; Pulse 75; Resp 17; Pulse Ox 100% ; bp 13:10 BP 101 / 81; Pulse 67; Resp 11; Temp 98; Pulse Ox 100% ; bp 08:17 Body Mass Index 29.38 (82.55 kg, 167.64 cm) bp ED Course: 08:04 Patient arrived in ED. as 08:06 Sarbjit Kowalski NP is PHCP. pm1 08:06 Jerry Herrera MD is Attending Physician. pm1 08:17 Kush Kuamr, RN is Primary Nurse. bp 08:19 Triage completed. bp 08:20 Arm band placed on. bp 08:22 Patient has correct armband on for positive identification. Bed in low position. Call bp light in reach. Side rails up X2. 08:42 XRAY Chest (1 view) In Process Unspecified. EDMS 08:45 Inserted saline lock: 20 gauge in left antecubital area, using aseptic technique. Blood bp collected. 08:45 Initial lab(s) drawn, by mn, sent to lab. Inserted saline lock: 20 gauge in left kj1 antecubital area, using aseptic technique. Blood collected. 09:09 CT Head Brain wo Cont In Process Unspecified. EDMS 09:51 CT Chest For PE Angio In Process Unspecified. EDMS 13:10 No provider procedures requiring assistance completed. IV discontinued, intact, bp bleeding controlled, No redness/swelling at site. Pressure dressing applied. Administered Medications: 08:50 Drug: NS 0.9% 1000 ml Route: IV; Rate: 1000 ml; Site: left antecubital; bp 13:12 Follow up: IV Status: Completed infusion; IV Intake: 1000ml bp 08:50 Drug: morphine 4 mg Route: IVP; Site: left antecubital; bp 12:23 Follow up: Response: Pain is decreased bp 08:50 Drug: Zofran (Ondansetron) 4 mg Route: IVP; Site: left antecubital; bp 12:23 Follow up: Response: Pain is decreased bp 12:05 Drug: TORadol - Ketorolac 15 mg Route: IVP; Site: left antecubital; bp 13:12 Follow up: Response: Pain is decreased bp 12:05 Drug: Reglan 10 mg Route: IVP; Site: left antecubital; bp 13:13 Follow up: Response: Pain is decreased bp 12:05 Drug: Benadryl 12.5 mg Route: IVP; Site: left antecubital; bp 13:13 Follow up: Response: Pain is decreased bp Intake: 13:12 IV: 1000ml; Total: 1000ml. bp Outcome: 12:35 Discharge ordered by MD. pm1 13:10 Discharged to home ambulatory. bp 13:10 Condition: stable 13:10 Discharge instructions given to patient, Instructed on discharge instructions, follow up and referral plans. medication usage, Demonstrated understanding of instructions, follow-up care, medications, Prescriptions given X 1. 13:13 Patient left the ED. bp Signatures: Dispatcher [employer] EDMS Disha Gutierrez Rebecca, RN RN rb1 Sarbjit Kowalski, TANI BOTTOM SPRAYER pm1 Kush Kumar RN RN Adenike Mckenna kj1
--- NOTE | 2020-06-04 12:35 | EDPHYS ---
Physician Documentation [facility] Name: Raphael Su Age: 39 yrs Sex: Female : 1980 Arrival Date: 06/04/2020 Time: 08:04 Bed 6 Private MD: ED Physician Jerry Hererra HPI: 06/04 10:02 This 39 yrs old Black Female presents to ER via Ambulatory with complaints of Headache, pm1 Shortness Of Breath. 10:02 The patient complains of pain to the forehead. The patient describes the headache as pm1 aching. Onset: The symptoms/episode began/occurred Patient with daily headaches for the past few months. Has seen Dr. Perry for headaches and was recommended OC magnesium supplementation. No imaging or blood work performed. No improvement in headaches. Patient with shortness of breath and palpations onset yesterday. No chest pain, N/V/D, fever, abdominal pain. Associated signs and symptoms: Pertinent negatives: vision changes, weakness. Severity of symptoms: in the emergency department the pain is unchanged. The symptoms are alleviated by nothing. the symptoms are aggravated by nothing. 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 - Social history:: Smoking status: Patient denies any tobacco usage or history of. ROS: 10:02 Constitutional: Negative for fever, chills, and weight loss, Eyes: Negative for injury, pm1 pain, redness, and discharge, ENT: Negative for injury, pain, and discharge, Neck: Negative for injury, pain, and swelling. 10:02 Abdomen/GI: Negative for abdominal pain, nausea, vomiting, diarrhea, and constipation, Back: Negative for injury and pain, : Negative for injury, bleeding, discharge, and swelling, MS/Extremity: Negative for injury and deformity, Skin: Negative for injury, rash, and discoloration. 10:02 Cardiovascular: Positive for palpitations, Negative for chest pain, edema. 10:02 Respiratory: Positive for shortness of breath, Negative for cough, wheezing. 10:02 Neuro: Positive for headache, Negative for numbness, tingling, weakness. Exam: 10:02 Constitutional: This is a well developed, well nourished patient who is awake, alert, pm1 and in no acute distress. Head/Face: Normocephalic, atraumatic. Eyes: Pupils equal round and reactive to light, extra-ocular motions intact. Lids and lashes normal. Conjunctiva and sclera are non-icteric and not injected. Cornea within normal limits. Periorbital areas with no swelling, redness, or edema. ENT: Nares patent. No nasal discharge, no septal abnormalities noted. Tympanic membranes are normal and external auditory canals are clear. Oropharynx with no redness, swelling, or masses, exudates, or evidence of obstruction, uvula midline. Mucous membranes moist. Neck: Trachea midline, no thyromegaly or masses palpated, and no cervical lymphadenopathy. Supple, full range of motion without nuchal rigidity, or vertebral point tenderness. No Meningismus. Chest/axilla: Normal chest wall appearance and motion. Nontender with no deformity. No lesions are appreciated. 10:02 Back: No spinal tenderness. No costovertebral tenderness. Full range of motion. Skin: Warm, dry with normal turgor. Normal color with no rashes, no lesions, and no evidence of cellulitis. MS/ Extremity: Pulses equal, no cyanosis. Neurovascular intact. Full, normal range of motion. 10:02 Cardiovascular: Rate: normal, Rhythm: regular, Pulses: no pulse deficits are appreciated, Edema: is not appreciated. 10:02 Respiratory: Exam negative for acute changes, respiratory distress, shortness of breath. 10:02 Abdomen/GI: Exam negative for acute changes, Inspection: abdomen appears normal, Palpation: abdomen is soft and non-tender, in all quadrants. 10:02 Neuro: Exam negative for acute changes, Orientation: is normal, Mentation: is normal, Motor: is normal, moves all fours. Vital Signs: 08:17 BP 101 / 81; Pulse 101; Resp 17; Temp 98; Pulse Ox 100% ; Weight 82.55 kg; Height 5 ft. bp 6 in. (167.64 cm); 09:48 BP 109 / 78; Pulse 93; Resp 20; Pulse Ox 100% ; bp 11:37 BP 116 / 84; Pulse 75; Resp 17; Pulse Ox 100% ; bp 13:10 BP 101 / 81; Pulse 67; Resp 11; Temp 98; Pulse Ox 100% ; bp 08:17 Body Mass Index 29.38 (82.55 kg, 167.64 cm) bp MDM: 08:06 Patient medically screened. louis 10:01 Data reviewed: vital signs. Data interpreted: Pulse oximetry: on room air is 100 %. pm1 Interpretation: normal. 11:49 Counseling: I had a detailed discussion with the patient and/or guardian regarding: the pm1 historical points, exam findings, and any diagnostic results supporting the discharge/admit diagnosis, lab results, radiology results, the need for outpatient follow up, a needle grader, a family practitioner, a neurologist, to return to the emergency department if symptoms worsen or persist or if there are any questions or concerns that arise at home. 06/04 08:14 Order name: Basic Metabolic Panel; Complete Time: 09:38 pm1 06/04 08:14 Order name: CBC with Diff; Complete Time: 09:17 pm1 06/04 08:14 Order name: LFT's; Complete Time: 09:38 pm1 06/04 08:14 Order name: Magnesium; Complete Time: 09:38 pm1 06/04 08:14 Order name: NT PRO-BNP; Complete Time: 09:38 pm1 06/04 08:14 Order name: PT-INR; Complete Time: 09:38 pm1 06/04 08:14 Order name: Troponin (emerg Dept Use Only); Complete Time: 09:38 pm1 06/04 08:14 Order name: XRAY Chest (1 view); Complete Time: 09:03 pm1 06/04 08:14 Order name: CT Head Brain wo Cont; Complete Time: 09:38 pm1 06/04 08:14 Order name: TSH; Complete Time: 09:38 pm1 06/04 09:03 Order name: LAB Add On pm1 06/04 09:04 Order name: D-Dimer; Complete Time: 09:38 EDMS 06/04 09:20 Order name: CT Chest For PE Angio; Complete Time: 10:10 bp 06/04 08:14 Order name: Cardiac monitoring; Complete Time: 08:28 pm1 06/04 08:14 Order name: EKG - Nurse/Tech; Complete Time: 08:28 pm1 06/04 08:14 Order name: IV Saline Lock; Complete Time: 08:51 pm1 06/04 08:14 Order name: Labs collected and sent; Complete Time: 08:51 pm1 06/04 08:14 Order name: O2 Per Protocol; Complete Time: 08:28 pm1 06/04 08:14 Order name: O2 Sat Monitoring; Complete Time: 08:28 pm1 Administered Medications: 08:50 Drug: NS 0.9% 1000 ml Route: IV; Rate: 1000 ml; Site: left antecubital; bp 13:12 Follow up: IV Status: Completed infusion; IV Intake: 1000ml bp 08:50 Drug: morphine 4 mg Route: IVP; Site: left antecubital; bp 12:23 Follow up: Response: Pain is decreased bp 08:50 Drug: Zofran (Ondansetron) 4 mg Route: IVP; Site: left antecubital; bp 12:23 Follow up: Response: Pain is decreased bp 12:05 Drug: TORadol - Ketorolac 15 mg Route: IVP; Site: left antecubital; bp 13:12 Follow up: Response: Pain is decreased bp 12:05 Drug: Reglan 10 mg Route: IVP; Site: left antecubital; bp 13:13 Follow up: Response: Pain is decreased bp 12:05 Drug: Benadryl 12.5 mg Route: IVP; Site: left antecubital; bp 13:13 Follow up: Response: Pain is decreased bp Disposition: 06/05 12:00 Co-signature as Attending Physician, Jrery Herrera MD I agree with the assessment and louis plan of care. Disposition: 06/04/20 12:35 Discharged to Home. Impression: Palpitations, Shortness of breath, Headache. - Condition is Stable. - Discharge Instructions: General Headache Without Cause, Palpitations, Shortness of Breath. - Prescriptions for Fiorinal 50- 325-40 mg Oral Capsule - take 1 capsule by ORAL route every 4 hours As needed - not to exceed 6 capsules per day; 20 capsule. - Medication Reconciliation Form, Thank You Letter, Antibiotic Education, Prescription Opioid Use form. - Follow up: Emergency Department; When: As needed; Reason: Worsening of condition. Follow up: Private Physician; When: 2 - 3 days; Reason: Recheck today's complaints, Continuance of care, Re-evaluation by your physician. - Problem is new. - Symptoms have improved. Signatures: Dispatcher [employer] EDMS Jerry Herrera, Sarbjit Jay MD, cha, AUTOCAD DETAILER AUTOCAD DETAILER pm1 Kush Kumar, RN RN bp Corrections: (The following items were deleted from the chart) 06/04 13:13 12:35 06/04/2020 12:35 Discharged to Home. Impression: Palpitations; Shortness of bp breath; Headache. Condition is Stable. Forms are Medication Reconciliation Form, Thank You Letter, Antibiotic Education, Prescription Opioid Use. Follow up: Emergency Department; When: As needed; Reason: Worsening of condition. Follow up: Private Physician; When: 2 - 3 days; Reason: Recheck today's complaints, Continuance of care, Re-evaluation by your physician. Problem is new. Symptoms have improved. pm1
--- NOTE | 2020-06-06 10:47 | EKG ---
Test Date: 2020-06-04 Test Time: 08:28:34 Developmental Electronics Assembler: BETTIE MEASUREMENT RESULTS: Intervals: Rate: 94 TN: 160 QRSD: 82 QT: 358 QTc: 447 [place]: P: 77 TN: 160 QRS: 82 T: 67 INTERPRETIVE STATEMENTS: Normal sinus rhythm ST elevation, probably due to early repolarization Borderline ECG Compared to ECG 06/16/2018 13:21:28 ST (T wave) deviation now present Early repolarization now present Electronically Signed On 06-06-20 10:44:01 CDT by Amador Sims
== END 2020-06-04 13:13 | disposition home or self-care (01) ==
LOC: ER 08:01
DX: R00.2 Palpitations (principal); R06.02 Shortness of breath; E11.9 Type 2 diabetes mellitus without complications; Z79.4 Long term (current) use of insulin; Z88.1 Allergy status to other antibiotic agents; Z88.8 Allergy status to other drugs, medicaments and biological substances
CPT/HCPCS: 93005; 85025; 80048; 36415; 83735; 85610; 85379; 80076; 84443; 84484; 83880; 70450; 71275; 71045; Q9967; J2765; J1200; J7030; J2405; 96361; 96374; 96375; 99284

== ENCOUNTER 2021-02-14 11:48 | Emergency (ER) | payer SELFPAY ==
--- NOTE | 2021-02-14 14:08 | ER ---
Nurse's Notes [facility] Name: Raphael Su Age: 40 yrs Sex: Female : 1980 Arrival Date: 02/14/2021 Time: 11:49 Bed Waiting Private MD: Diagnosis: Presentation: 02/14 12:18 Chief complaint: Patient states: i have vertigo and I have burning pain from back of my ca1 head to my forehead. And this flare up episode is the most intense that I've ever had. +N/V/dizziness. Coronavirus screen: Client denies travel out of the [place] in the last 14 days. muscle pain, nausea, vomiting. Client presents with at least one sign or symptom that may indicate coronavirus-19. Standard/surgical mask placed on the client. Provider contacted for isolation considerations. Ebola Screen: Patient negative for fever greater than or equal to 101.5 degrees Fahrenheit, and additional compatible Ebola Virus Disease symptoms Patient denies exposure to infectious person. Patient denies travel to an Ebola-affected area in the 21 days before illness onset. No symptoms or risks identified at this time. Initial Sepsis Screen: Does the patient meet any 2 criteria? No. Patient's initial sepsis screen is negative. Does the patient have a suspected source of infection? No. Patient's initial sepsis screen is negative. Risk Assessment: Do you want to hurt yourself or someone else? Patient reports no desire to harm self or others. Onset of symptoms was February 14, 2021. 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 Flu vaccine is not up to date. - Social history:: Smoking status: Patient denies any tobacco usage or history of. Vital Signs: 12:18 BP 95 / 70; Pulse 94; Resp 18 S; Temp 97.1(TE); Pulse Ox 100% on R/A; Weight 89.36 kg ca1 (R); Height 5 ft. 6 in. (167.64 cm) (R); Pain 7/10; 12:18 Body Mass Index 31.80 (89.36 kg, 167.64 cm) ca1 ED Course: 11:49 Patient arrived in ED. as 12:20 Triage completed. ca1 12:21 Arm band placed on right wrist. ca1 14:07 Patient's name was called from ER lobby. No response. Unable to locate patient. Will ca1 disposition as left without being seen by a provider. Administered Medications: No medications were administered Outcome: 14:07 Patient left the ED. ca1 Signatures: Disha Gutierrez Cheryl, RN RN ca1
[2021-02-14 14:11] VITALS: BP 95/70; TEMP 97.1; O2SAT 100
== END 2021-02-14 14:07 | disposition left against medical advice (07) ==
LOC: ER 11:48
DX: Z02.9 Encounter for administrative examinations, unspecified (principal)
CPT/HCPCS: 99281

== ENCOUNTER 2021-11-06 07:49 | Emergency (ER) | payer BC ==
[2021-11-06] MEDS ORDERED: BUPIVACAINE 0.5% PF 10 ML VIAL ONE (08:38)
[2021-11-06] MEDS ORDERED: ONDANSETRON 4 MG/2 ML VIAL ONE (08:38)
[2021-11-06] MEDS ORDERED: MORPHINE 4 MG/ML SYR ONE ×2 (08:38→10:18)
[2021-11-06] MEDS ORDERED: LIDOCAINE 1% W/EPI 1:100,000 MDV 20 ML VIAL ONE (08:38)
[2021-11-06] MEDS ORDERED: NA CHLORIDE 0.9% 1,000 ML ONE (08:38)
[2021-11-06] MEDS ORDERED: CLINDAMYCIN 900MG/D5W 900 MG/50 ML IVPB IV ONE (09:02)
[2021-11-06 09:44] LABS: ALT/SGPT 11 U/L (12-78); AST/SGOT 12 U/L (15-37); Albumin 2.7 g/dL (3.4-5.0); BUN Blood Urea Nitrogen 12 mg/dL (7-18); Bicarbonate 22 mmol/L (21-32); Bilirubin Direct < 0.1 mg/dL (0-0.2); Bilirubin Total 0.3 mg/dL (0.2-1.0); Glucose Level 241 mg/dL (74-106); Potassium 3.4 mmol/L (3.5-5.1); Sodium Level 138 mmol/L (136-145)
[2021-11-06 09:46] LABS: Alkaline Phosphatase 107 U/L (45-117); Protein, Total 7.3 g/dL (6.4-8.2)
[2021-11-06] MEDS ORDERED: POTASSIUM 25 MEQ EFFERV TAB ONE (10:34)
--- NOTE | 2021-11-06 11:36 | EDPHYS ---
Physician Documentation [facility] Name: Raphael Su Age: 41 yrs Sex: Female : 1980 Arrival Date: 11/06/2021 Time: 07:52 Bed 18 Private MD: ED Physician Kathleen Turner HPI: 11/06 08:09 This 41 yrs old Black Female presents to ER via Ambulatory with complaints of Boil. cp 08:09 The patient presents with an abscess of the left buttock. Description: draining, tense. cp Onset: The symptoms/episode began/occurred 4 day(s) ago. Associated signs and symptoms: Pertinent positives: drainage, fever. 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 - Social history:: Smoking status: Patient denies any tobacco usage or history of. ROS: 08:10 Constitutional: Negative for fever. cp 08:10 Abdomen/GI: Negative for abdominal pain. 08:10 Skin: Positive for abscess, of the left buttock. 08:10 All other systems are negative. Exam: 08:15 Constitutional: The patient appears in no acute distress, alert, awake, non-toxic, well cp developed, well nourished, uncomfortable. 08:15 Cardiovascular: Rate: tachycardic. 08:15 Respiratory: the patient does not display signs of respiratory distress, Respirations: normal, no use of accessory muscles, no retractions, labored breathing, is not present. 08:15 Abdomen/GI: Exam negative for discomfort, distension, guarding. 08:15 Skin: abscess, that is moderate sized, of the left buttock, with drainage, that is purulent. Vital Signs: 08:00 BP 120 / 84; Pulse 96; Resp 16; Temp 98.1; Pulse Ox 100% ; Weight 78.47 kg; Height 5 jd3 ft. 6 in. (167.64 cm); Pain 10/10; 11:53 BP 122 / 82; Pulse 96; Resp 16 S; Pulse Ox 100% on R/A; jd3 08:00 Body Mass Index 27.92 (78.47 kg, 167.64 cm) jd3 Procedures: 11:25 I \T\ D: Incision and drainage was performed for an abscess of the left buttock Prepped cp with Betadine, Anesthetized with 10 ccs of 50/50 mixture 1% lidocaine with epi and 0.5% marcaine. Incised with #11 blade. Drained moderate amount purulent fluid. bloody fluid. Packed with iodoform gauze, Dressing: sterile 4x4 gauze, the patient tolerated the procedure well. MDM: 08:09 Patient medically screened. cp 09:00 Differential diagnosis: abscess, cellulitis, sepsis. cp 11:35 Data reviewed: vital signs, nurses notes, lab test result(s). cp 11:35 Counseling: I had a detailed discussion with the patient and/or guardian regarding: the cp historical points, exam findings, and any diagnostic results supporting the discharge/admit diagnosis, lab results, the need for outpatient follow up, a general surgeon, to return to the emergency department if symptoms worsen or persist or if there are any questions or concerns that arise at home. Response to treatment: the patient's symptoms have markedly improved after treatment, and as a result, I will discharge patient. ED course: VSS. I\T\D performed as noted. Patient tolerated procedure well. Will discharge to home for continued monitoring. 11/06 08:15 Order name: Basic Metabolic Panel 11/06 08:15 Order name: Hepatic Function; Complete Time: 10:29 11/06 08:15 Order name: Lactate; Complete Time: 10:29 11/06 08:15 Order name: Wound Culture: left buttock 11/06 08:15 Order name: Basic Metabolic Panel; Complete Time: 10:29 EDMS 11/06 10:30 Interpretation: Normal except: K 3.4; GLUC 241; CRE 0.49. 11/06 08:15 Order name: IV Saline Lock; Complete Time: 08:45 cp 11/06 08:15 Order name: Labs collected and sent; Complete Time: 09:20 11/06 08:15 Order name: I\T\D Setup; Complete Time: 08:45 cp Administered Medications: 08:44 Drug: morphine 4 mg Route: IVP; Site: right antecubital; jd3 09:40 Follow up: Response: No adverse reaction; RASS: Alert and Calm (0) jd3 08:45 Drug: NS 0.9% 1000 ml Route: IV; Rate: 1 bolus; Site: right antecubital; jd3 09:45 Follow up: Response: No adverse reaction; IV Status: Completed infusion; IV Intake: jd3 1000ml 08:45 Drug: Zofran (Ondansetron) 4 mg Route: IVP; Site: right antecubital; jd3 09:45 Follow up: Response: No adverse reaction jd3 08:45 Drug: Marcaine (bupivacaine) (0.5 %) 10 ml Volume: 10 ml; Route: Infiltration; jd3 08:45 Drug: Lidocaine-Epinephrine -1%: (1:100,000) 10 ml Volume: 20 ml; Route: Infiltration; jd3 09:12 Drug: Clindamycin 900 mg Route: IVPB; Infused Over: 30 mins; Site: right hand; jd3 10:00 Follow up: Response: No adverse reaction; IV Status: Completed infusion jd3 10:31 Drug: morphine 4 mg Route: IVP; Site: right hand; jd3 11:30 Follow up: Response: No adverse reaction; RASS: Alert and Calm (0) jd3 10:36 Drug: Potassium Effervescent Tablet 50 mEq Route: PO; jd3 11:00 Follow up: Response: No adverse reaction jd3 Disposition: 11:45 Chart complete. cp 11/07 04:37 Co-signature as Attending Physician, Kathleen Turner MD I agree with the assessment and sp3 plan of care. Disposition Summary: 11/06/21 11:35 Discharge Ordered Location: Home cp Problem: new cp Symptoms: have improved cp Condition: Stable cp Diagnosis - Cutaneous abscess of buttock - left cp Followup: cp - With: Tereso Blank MD - When: 1 - 2 days - Reason: Wound Recheck Discharge Instructions: - Discharge Summary Sheet cp - Skin Abscess cp - Incision and Drainage cp Forms: - Medication Reconciliation Form cp - Thank You Letter cp - Antibiotic Education cp - Prescription Opioid Use cp Prescriptions: - Clindamycin HCl 300 mg Oral Capsule - take 1 capsule by ORAL route every 6 hours for 10 days; 40 capsule; Refills: 0, cp Product Selection Permitted - Doxycycline Hyclate 100 mg Oral Tablet - take 1 tablet by ORAL route every 12 hours; 20 tablet; Refills: 0, Product cp Selection Permitted - Zofran 4 mg Oral Tablet - take 1 tablet by ORAL route every 12 hours As needed; 20 tablet; Refills: 0, cp Product Selection Permitted - Tylenol-Codeine #3 300 mg-30 mg Oral - take 2 tablet by ORAL route every 8-10 hours As needed; 20 tablet; Refills: 0, cp Product Selection Permitted Signatures: Dispatcher [employer] Sarah Helton Corey, PA PA cp Davies, Jonathon RN RN jd3 Nilton Flanagan RN RN ll1 Kathleen Turner MD MD sp3
--- NOTE | 2021-11-06 11:36 | ER ---
Nurse's Notes [facility] Name: Raphael Su Age: 41 yrs Sex: Female : 1980 Arrival Date: 11/06/2021 Time: 07:52 Bed 18 Private MD: Diagnosis: Cutaneous abscess of buttock-left Presentation: 11/06 08:00 Chief complaint: Patient states: L buttocks abscess for 4 days getting progressively ll1 worse. + drainage. Fever at home was up to 101. Coronavirus screen: Vaccine status: Patient reports receiving the 2nd dose of the covid vaccine. Client denies travel out of the [place] in the last 14 days. At this time, the client does not indicate any symptoms associated with coronavirus-19. Ebola Screen: Patient denies travel to an Ebola-affected area in the 21 days before illness onset. Initial Sepsis Screen: Does the patient meet any 2 criteria? HR > 90 bpm. No. Patient's initial sepsis screen is negative. Does the patient have a suspected source of infection? Yes: Skin breakdown/wound. Risk Assessment: Do you want to hurt yourself or someone else? Patient reports no desire to harm self or others. Onset of symptoms was November 02, 2021. 08:00 Method Of Arrival: Ambulatory ll1 08:00 Acuity: SHARON 4 ll1 08:45 Acuity: SHARON 3 jd3 Triage Assessment: 08:02 General: Appears uncomfortable, Behavior is calm, cooperative, appropriate for age. ll1 Pain: Complains of pain in L buttocks Quality of pain is described as aching, Aggravated by increased activity. Derm: Abscess located on L bottocks. 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 - Social history:: Smoking status: Patient denies any tobacco usage or history of. Screenin:00 Abuse screen: Denies threats or abuse. Nutritional screening: No deficits noted. jd3 Tuberculosis screening: No symptoms or risk factors identified. Fall Risk Ambulatory Aid- None/Bed Rest/Nurse Assist (0 pts). Gait- Normal/Bed Rest/Wheelchair (0 pts) Mental Status- Oriented to own ability (0 pts). Total Mayer Fall Scale indicates No Risk (0-24 pts). Assessment: 08:01 General: Appears in no apparent distress. uncomfortable, Behavior is calm, cooperative, jd3 appropriate for age. Pain: Complains of pain in buttocks Quality of pain is described as tender. Neuro: Level of Consciousness is awake, alert, obeys commands, Oriented to person, place, time, situation. Cardiovascular: Capillary refill < 3 seconds Patient's skin is warm and dry. Respiratory: Airway is patent Respiratory effort is even, unlabored, Respiratory pattern is regular, symmetrical, Denies cough, shortness of breath. GI: No signs and/or symptoms were reported involving the gastrointestinal system. : No signs and/or symptoms were reported regarding the genitourinary system. EENT: No signs and/or symptoms were reported regarding the EENT system. Derm: Skin is intact, Skin is dry, Skin is normal, Skin temperature is warm Reports boil on left side of buttocks. Musculoskeletal: No signs and/or symptoms reported regarding the musculoskeletal system. 08:10 Derm: Abscess located on L gluteal cleft is quarter sized, has purulent drainage. ph 09:12 Reassessment: Patient appears in no apparent distress at this time. No changes from jd3 previously documented assessment. Patient and/or family updated on plan of care and expected duration. Pain level reassessed. Patient is alert, oriented x 3, equal unlabored respirations, skin warm/dry/pink. 10:30 Reassessment: Patient appears in no apparent distress at this time. Patient and/or jd3 family updated on plan of care and expected duration. Pain level reassessed. Patient is alert, oriented x 3, equal unlabored respirations, skin warm/dry/pink. Vital Signs: 08:00 BP 120 / 84; Pulse 96; Resp 16; Temp 98.1; Pulse Ox 100% ; Weight 78.47 kg; Height 5 jd3 ft. 6 in. (167.64 cm); Pain 10/10; 11:53 BP 122 / 82; Pulse 96; Resp 16 S; Pulse Ox 100% on R/A; jd3 08:00 Body Mass Index 27.92 (78.47 kg, 167.64 cm) jd3 ED Course: 07:52 Patient arrived in ED. ds1 07:55 Kathleen Turner MD is Attending Physician. sp3 07:56 Ezekiel Amezcua, VANESSA is Primary Nurse. jd3 07:57 Jerry Mckay PA is PHCP. cp 07:57 Kathleen Turner MD is Attending Physician. cp 07:59 Arm band placed on Patient placed in an exam room, on a stretcher. ll1 08:00 Patient has correct armband on for positive identification. Bed in low position. Call j light in reach. Side rails up X 1. Pulse ox on. NIBP on. 08:02 Triage completed. ll1 10:05 Assist provider with I \T\ D: of an abscess on left buttocks Set up I\T\D tray. Performed ph by Jerry CARBAJAL Culture sent to lab. Wound packed. iodoform gauze, Dressing with 4X4s, tape Patient tolerated poorly. 11:34 Tereso Blank MD is Referral Physician. cp 11:53 IV discontinued, intact, bleeding controlled, No redness/swelling at site. Pressure jd3 dressing applied. Administered Medications: 08:44 Drug: morphine 4 mg Route: IVP; Site: right antecubital; jd3 09:40 Follow up: Response: No adverse reaction; RASS: Alert and Calm (0) jd3 08:45 Drug: NS 0.9% 1000 ml Route: IV; Rate: 1 bolus; Site: right antecubital; jd3 09:45 Follow up: Response: No adverse reaction; IV Status: Completed infusion; IV Intake: jd3 1000ml 08:45 Drug: Zofran (Ondansetron) 4 mg Route: IVP; Site: right antecubital; jd3 09:45 Follow up: Response: No adverse reaction jd3 08:45 Drug: Marcaine (bupivacaine) (0.5 %) 10 ml Volume: 10 ml; Route: Infiltration; jd3 08:45 Drug: Lidocaine-Epinephrine -1%: (1:100,000) 10 ml Volume: 20 ml; Route: Infiltration; jd3 09:12 Drug: Clindamycin 900 mg Route: IVPB; Infused Over: 30 mins; Site: right hand; jd3 10:00 Follow up: Response: No adverse reaction; IV Status: Completed infusion jd3 10:31 Drug: morphine 4 mg Route: IVP; Site: right hand; jd3 11:30 Follow up: Response: No adverse reaction; RASS: Alert and Calm (0) jd3 10:36 Drug: Potassium Effervescent Tablet 50 mEq Route: PO; jd3 11:00 Follow up: Response: No adverse reaction jd3 Intake: 09:45 IV: 1000ml; Total: 1000ml. jd3 Outcome: 11:35 Discharge ordered by MD. cp 11:53 Discharged to home ambulatory, with family. jd3 11:53 Condition: stable 11:53 Discharge instructions given to patient, Instructed on discharge instructions, follow up and referral plans. medication usage, Demonstrated understanding of instructions, follow-up care, medications, Prescriptions given X 4. 11:54 Patient left the ED. jd3 Signatures: Hiral Waldron ds1 Lili Ellis RN RN ph Jerry Mckay PA PA cp Davies, Jonathon, RN RN jNilton Wilson RN RN ll1 Kathleen Turner MD MD sp3 Corrections: (The following items were deleted from the chart) 08:45 08:00 BP 120 / 84; Pulse 196bpm; Resp 16bpm; Pulse Ox 100%; Temp 98.1F; 78.47 kg; jd3 Height 5 ft. 6 in.; BMI: 27.9; Pain 10/10; ll1
[2021-11-06 11:59] VITALS: TEMP 98.1; O2SAT 100
[2021-11-06 12:00] VITALS: BP 122/82
== END 2021-11-06 11:54 | disposition home or self-care (01) ==
LOC: ER 07:49
PROC: 0H98XZZ Drainage of Buttock Skin, External Approach (ICD-10-PCS; principal; 2021-11-06)
DX: L02.31 Cutaneous abscess of buttock (principal); Z88.1 Allergy status to other antibiotic agents; Z88.5 Allergy status to narcotic agent; Z88.8 Allergy status to other drugs, medicaments and biological substances
CPT/HCPCS: 87070; 80048; 36415; 87205; 80076; 83605; 10060; J7030; J2405

== ENCOUNTER 2021-11-08 11:58 | Day surgery (SDC) | payer BC ==
[2021-11-07 14:02] LABS: Specific Gravity >= 1.030 (1.005-1.030)
[2021-11-07 14:03] LABS: Absolute Lymphocytes (CBC) 1.4 K/uL (0.7-4.9); Hematocrit 27.1 % (36.0-45.0); Lymphocytes % 27.8 % (15.3-44.8); MPV 6.9 fL (7.6-11.3); RBC Red Blood Cell Count 4.21 M/uL (3.86-4.86)
[2021-11-07 14:17] LABS: BUN Blood Urea Nitrogen 10 mg/dL (7-18); Bicarbonate 22 mmol/L (21-32); Glucose Level 266 mg/dL (74-106); Potassium 3.7 mmol/L (3.5-5.1); Sodium Level 134 mmol/L (136-145)
[2021-11-07 14:41] LABS: Blood Morphology Comment NOTED (NOT SEEN); Hypochromasia 1+; Platelet Estimate INCR; White Blood Cell Scan OK (OK)
[2021-11-08] MEDS ORDERED: NA CHLORIDE 0.9% 1,000 ML ONE ×2 (12:06→18:06)
[2021-11-08] MEDS ORDERED: CEFAZOLIN/NS 1gm 1 GM/50 ML BAG ONE (12:07)
[2021-11-08] MEDS ORDERED: BUPIVACAINE 0.25% PF 10 ML VIAL ONE (15:33)
[2021-11-08] MEDS ORDERED: METHYLENE BLUE 0.5% 10 ML AMP ONE (15:33)
[2021-11-08] MEDS ORDERED: SODIUM HYPOCHLORITE 0.5% 473 ML ONE (15:52)
[2021-11-08] MEDS ORDERED: FENTANYL CITR 100 MCG/2 ML ONE (15:54)
[2021-11-08] MEDS ORDERED: MIDAZOLAM HCL 2 MG/2 ML INJ ONE ×2 (15:54→17:40)
[2021-11-08] MEDS ORDERED: propofoL 200 MG/20 ML VIAL IV ONE (15:54)
[2021-11-08] MEDS ORDERED: KETOROLAC 30 MG/ML INJ ONE ×2 (15:55→16:34)
[2021-11-08] MEDS ORDERED: LIDOCAINE 2% MPF 5 ML VIAL ONE (15:55)
[2021-11-08] MEDS ORDERED: dexAMETHasone 10 MG/ML VIAL ONE (15:55)
[2021-11-08] MEDS ORDERED: ONDANSETRON 4 MG/2 ML VIAL ONE (15:55)
[2021-11-08] MEDS ORDERED: SODIUM HYPOCHLORITE 0.25% 473 ML ONE (16:30)
[2021-11-08] MEDS ORDERED: KETAMINE HCL 500 MG/5 ML VIAL ONE (16:34)
--- NOTE | 2021-11-08 16:50 | P.OP ---
Preoperative diagnosis: Pilonidal Cyst with Sinus / Abscess Postoperative diagnosis: Pilonidal Cyst with Sinus / Abscess Primary procedure: Wide local excisional debridement of pilonidal cyst / abscess /sinus Anesthesia: GETA + Local Estimated blood loss: <15cc Specimen: debridement tissue, cultures Findings: 8.5cm x 6cm x 2 cm into adipose Complications: None Transferred to: Recovery Room Condition: Good
[2021-11-08] MEDS: HYDROMORPHONE HCL 1 MG/ML INJ ONE ×10 (17:15→17:40)
[2021-11-08] MEDS: DIPHENHYDRAMINE 50 MG/ML VIAL ONE ×2 (17:50→18:05)
[2021-11-08 18:42] VITALS: BP 132/60; TEMP 98.9; O2SAT 99
[2021-11-08] MEDS ORDERED: HYDROCODONE/APAP 7.5/325 MG TAB ONE (18:52)
[2021-11-08] MEDS ORDERED: DIPHENHYDRAMINE 25 MG TAB/CAP ONE (18:59)
--- NOTE | 2021-11-09 02:51 | OP ---
Date of Procedure: 11/08/2021 Surgeon: Yariel Caldwell MD, Preoperative Diagnosis: Pilonidal cyst with sinus/abscess. Postoperative Diagnosis: Pilonidal cyst with sinus/abscess. Procedure Performed: A wide local excision with debridement of pilonidal cyst abscess and sinus trac t. Anesthesia: General endotracheal plus local with 0.25% Marcaine. Estimated Blood Loss: 50 cc. Specimen: Debridement of tissue and cultures for both aerobic and anaerobic speciation. Findings: 8.5 cm x 6 cm x 2 cm pilonidal cyst with sinus abscess into adipose tissue. Complications: None. Disposition: The patient is transferred to recovery room in good condition. Procedure In Detail: After informed consent was obtained, the patient was brought to the operating r oom, prepped and draped in the usual sterile fashion. After adequate anesthesia is achieved, I injec yariel methylene blue into an apparent sinus tract from the pilonidal cyst disease into the superior yoel al cleft. This filled several areas and blue was emanating from multiple punctate openings along the rajan cleft and lateral to it. There was fullness appreciated and palpable after injection. At thi s point, the remaining methylene blue was cleansed off and I made an elliptical incision around this area, slightly listing towards the left buttock, but near the rajan cleft down through the subcutaneo us tissues. I then performed electrocautery debridement of all tissues involved following the methyl jenae blue sinus tracts, which were in an almost stellate type pattern. I removed this and encountered multiloculated abscesses, which were all open, drained, cultured and sent off for the aerobic and an aerobic speciation. I then removed all necrotic tissue and all affected tissues down into subcutaneo us fat for the size measurements as above and hemostasis was achieved with electrocautery. I then co piously irrigated the area, cleansed it until completely dry. At this point, I then packed the wound with 0.25% Dakin solution on a sterile Kerlix and a sterile dressing placed on top. The patient milagros erated the procedure well without evidence of complication and transferred to PACU in good condition. All counts were correct at the end of the case. YURIY/LEXISL Voice ID: [id number] Report ID: [id number]
== END 2021-11-08 19:23 | disposition home or self-care (01) ==
LOC: OR 11:58
PROVIDERS: ATTEND Surgery
PROC: 0JB90ZZ Excision of Buttock Subcutaneous Tissue and Fascia, Open Approach (ICD-10-PCS; principal; 2021-11-08 14:45)
DX: L05.91 Pilonidal cyst without abscess (principal)
CPT/HCPCS: 93005; 87070; 85025; 80048; 36415; 87205; 81025; 82947; 87075; 11770; J2704; J1200; J2250; J3010; J1100; J1170 ×3; J0690; J7030 ×2; J2405; 88304

== ENCOUNTER 2022-12-18 05:24 | Emergency (ER) | payer BC ==
[2022-12-18] MEDS ORDERED: HYDROMORPHONE HCL 1 MG/ML INJ ONE (05:53)
--- NOTE | 2023-01-03 15:19 | ER ---
Nurse's Notes [facility] Name: Raphael Su Age: 42 yrs Sex: Female : 1980 Arrival Date: 12/18/2022 Time: 05:30 Bed 18 Private MD: Diagnosis: Toothache Presentation: 12/18 05:39 Chief complaint: Patient states: I have a terrible tooth ache. Coronavirus screen: ha1 Vaccine status: Patient reports receiving the 2nd dose of the covid vaccine. [employer]. Ebola Screen: No symptoms or risks identified at this time. Initial Sepsis Screen: Does the patient meet any 2 criteria? No. Patient's initial sepsis screen is negative. Does the patient have a suspected source of infection? Yes: Other: tooth ache. Risk Assessment: Do you want to hurt yourself or someone else? Patient reports no desire to harm self or others. Onset of symptoms was December 18, 2022. 05:39 Method Of Arrival: Ambulatory 1 05:39 Acuity: SHARON 4 ha1 Triage Assessment: 05:32 General: Appears uncomfortable, Behavior is crying. Pain: Complains of pain in mouth ha1 Pain does not radiate. Pain at worst was 10 out of 10 on a pain scale. EENT:. Neuro: Level of Consciousness is awake, alert, obeys commands, Oriented to person, place, time, situation. Cardiovascular: Capillary refill < 3 seconds Patient's skin is warm and dry. Respiratory: Airway is patent Respiratory effort is even, unlabored, Respiratory pattern is regular, symmetrical. GI: No signs and/or symptoms were reported involving the gastrointestinal system. Abdomen is flat, non-distended. : No signs and/or symptoms were reported regarding the genitourinary system. Derm: Skin is moist, Skin is normal. Musculoskeletal: Circulation, motion, and sensation intact. Range of motion: intact in all extremities. 06:03 EENT: Reports pain in tooth. ha1 Historical: - Allergies: 05:42 Bactrim; ha1 05:42 Lantus; ha1 05:42 tramadol; ha1 - Home Meds: 05:42 Insulin: Humulin 70/30 Sub-Q [Active]; ha1 - PMHx: 05:42 Diabetes - IDDM; High Cholesterol; ha1 - PSHx: 05:42 tubal ligation; ha1 - Immunization history:: Adult Immunizations up to date. - Social history:: Smoking status: Patient reports the use of cigarette tobacco products, denies chronic smoking, but will smoke occasionally. Screenin:32 [facility] ED Fall Risk Assessment (Adult) History of falling in the last 3 months, ha1 including since admission No falls in past 3 months (0 pts) Confusion or Disorientation No (0 pts) Intoxicated or Sedated No (0 pts) Impaired Gait No (0 pts) Mobility Assist Device Used No (0 pt) Altered Elimination No (0 pt) Score/Fall Risk Level 0 - 2 = Low Risk Oriented to surroundings, Maintained a safe environment, Educated pt \T\ family on fall prevention, incl call for assistance when getting out of bed. Abuse screen: Denies threats or abuse. Denies injuries from another. Nutritional screening: No deficits noted. Tuberculosis screening: No symptoms or risk factors identified. Assessment: 05:32 Reassessment: see triage assessment. ha1 Vital Signs: 05:39 BP 129 / 82; Pulse 109; Resp 18 S; Temp 98; Pulse Ox 100% on R/A; Weight 72.57 kg; ha1 Height 5 ft. 7 in. ; Pain 10/10; 06:00 BP 121 / 82; Pulse 95; Resp 15 S; Pulse Ox 98% on R/A; ha1 05:39 Body Mass Index 25.06 (72.57 kg, 170.18 cm) ha1 05:39 Pain Scale: Adult ha1 ED Course: 05:30 Patient arrived in ED. [id number] 05:32 Patient has correct armband on for positive identification. Bed in low position. Call ha1 light in reach. Side rails up X 1. 05:37 Gabi Solis, VANESSA is Primary Nurse. ha1 05:39 Kathleen Turner MD is Attending Physician. sp3 05:41 Triage completed. ha1 05:44 Arm band placed on right wrist. ha1 06:02 No provider procedures requiring assistance completed. Patient did not have IV access ha1 during this emergency room visit. Administered Medications: 05:45 Drug: HYDROmorphone IM 1 mg Route: IM; Site: right deltoid; ha1 06:00 Follow up: Response: No adverse reaction; Pain is decreased; RASS: Alert and Calm (0) ha1 Medication: 06:03 VIS not applicable for this client. ha1 Outcome: 05:51 Discharge ordered by . sp3 06:03 Discharged to home ambulatory, with family. ha1 06:03 Condition: stable 06:03 Discharge instructions given to patient, family, Instructed on discharge instructions, follow up and referral plans. Demonstrated understanding of instructions, follow-up care. 06:04 Patient left the ED. ha1 Signatures: Kathleen Turner MD MD sp3 Susy [id number] Gabi Solis RN RN ha1 Corrections: (The following items were deleted from the chart) 05:52 05:51 HYDROmorphone IM 1 mg IM in right deltoid ha1 ha1
--- NOTE | 2023-01-03 15:19 | EDPHYS ---
Physician Documentation [facility] Name: Raphael Su Age: 42 yrs Sex: Female : 1980 Arrival Date: 12/18/2022 Time: 05:30 Bed 18 Private MD: ED Physician Kathleen Turner HPI: 12/18 05:47 This 42 yrs old Black Female presents to ER via Ambulatory with complaints of Toothache.sp3 05:47 42-year-old female with history of diabetes presents with chief complaint left lower sp3 mandibular tooth pain at tooth #18. Patient has been having symptoms for over a week and is currently on antibiotics and hydrocodone prescribed by her oral surgeon. She has an oral surgery appointment later today and approximately 2 hours at 7:30 AM. However her pain throughout the night was unbearable and she decided to come here for further intervention due to her "not being able to take it". She denies any fever, throat pain, oral swelling, chest pain, shortness of breath, or any other aspect of ROS at this time.. Historical: - Allergies: 05:42 Bactrim; ha1 05:42 Lantus; ha1 05:42 tramadol; ha1 - Home Meds: 05:42 Insulin: Humulin 70/30 Sub-Q [Active]; ha1 - PMHx: 05:42 Diabetes - IDDM; High Cholesterol; ha1 - PSHx: 05:42 tubal ligation; ha1 - Immunization history:: Adult Immunizations up to date. - Social history:: Smoking status: Patient reports the use of cigarette tobacco products, denies chronic smoking, but will smoke occasionally. ROS: 05:48 Constitutional: Negative for fever, chills, and weight loss, Eyes: Negative for injury, sp3 pain, redness, and discharge, Neck: Negative for injury, pain, and swelling, Cardiovascular: Negative for chest pain, palpitations, and edema, Respiratory: Negative for shortness of breath, cough, wheezing, and pleuritic chest pain, Abdomen/GI: Negative for abdominal pain, nausea, vomiting, diarrhea, and constipation, MS/Extremity: Negative for injury and deformity, Skin: Negative for injury, rash, and discoloration, Neuro: Negative for headache, weakness, numbness, tingling, and seizure. 05:48 All other systems are negative. Exam: 05:48 Constitutional: This is a well developed, well nourished patient who is awake, alert, sp3 and in no acute distress. Head/Face: Normocephalic, atraumatic. Eyes: Pupils equal round and reactive to light, extra-ocular motions intact. Lids and lashes normal. Conjunctiva and sclera are non-icteric and not injected. Cornea within normal limits. Periorbital areas with no swelling, redness, or edema. Neck: Trachea midline, no thyromegaly or masses palpated, and no cervical lymphadenopathy. Supple, full range of motion without nuchal rigidity, or vertebral point tenderness. No Meningismus. Chest/axilla: Normal chest wall appearance and motion. Nontender with no deformity. No lesions are appreciated. Cardiovascular: Regular rate and rhythm with a normal S1 and S2. No gallops, murmurs, or rubs. Normal PMI, no JVD. No pulse deficits. Respiratory: Lungs have equal breath sounds bilaterally, clear to auscultation and percussion. No rales, rhonchi or wheezes noted. No increased work of breathing, no retractions or nasal flaring. Neuro: Awake and alert, GCS 15, oriented to person, place, time, and situation. Cranial nerves II-XII grossly intact. Motor strength 5/5 in all extremities. Sensory grossly intact. Cerebellar exam normal. Normal gait. Psych: Awake, alert, with orientation to person, place and time. Behavior, mood, and affect are within normal limits. 05:48 ENT: Erythema noted at tooth #18 without any other discrepancy. Tooth is painful to percussion.. Vital Signs: 05:39 BP 129 / 82; Pulse 109; Resp 18 S; Temp 98; Pulse Ox 100% on R/A; Weight 72.57 kg; ha1 Height 5 ft. 7 in. ; Pain 10/10; 06:00 BP 121 / 82; Pulse 95; Resp 15 S; Pulse Ox 98% on R/A; ha1 05:39 Body Mass Index 25.06 (72.57 kg, 170.18 cm) ha1 05:39 Pain Scale: Adult ha1 MDM: 05:39 Patient medically screened. sp3 05:49 Data reviewed: vital signs, nurses notes. ED course: 42-year-old female with tooth ache sp3 with planned procedure/appointment with oral surgeon in 2 hours. Patient declined regional alveolar block. She already took 2 hydrocodone's approximately 5 hours ago. At this point I will give Dilaudid 1 mg intramuscularly and discharge patient home with her driving with continuance of her oral surgery appointment later this morning. Patient is amenable to the plan and has no further questions and is grateful for her care.. Administered Medications: 05:45 Drug: HYDROmorphone IM 1 mg Route: IM; Site: right deltoid; ha1 06:00 Follow up: Response: No adverse reaction; Pain is decreased; RASS: Alert and Calm (0) ha1 Disposition Summary: 12/18/22 05:51 Discharge Ordered Location: Home sp3 Condition: Stable sp3 Diagnosis - Toothache sp3 Discharge Instructions: - Discharge Summary Sheet sp3 - Dental Pain sp3 Forms: - Medication Reconciliation Form sp3 - Thank You Letter sp3 - Antibiotic Education sp3 - Prescription Opioid Use sp3 Signatures: Kathleen Turner MD MD sp3 Gabi Solis RN RN ha1
== END 2022-12-18 06:04 | disposition home or self-care (01) ==
LOC: ER 05:24
DX: K08.89 Other specified disorders of teeth and supporting structures (principal); F17.210 Nicotine dependence, cigarettes, uncomplicated; E11.9 Type 2 diabetes mellitus without complications; Z79.4 Long term (current) use of insulin; Z88.1 Allergy status to other antibiotic agents; Z88.5 Allergy status to narcotic agent; Z88.8 Allergy status to other drugs, medicaments and biological substances
CPT/HCPCS: 96372; 99283; J1170

== ENCOUNTER 2022-12-20 17:10 | Inpatient (IN) | payer BC ==
[2022-12-20 18:18] LABS: SARS-CoV-2 Antigen Rapid Res Negative (Negative)
--- NOTE | 2022-12-20 19:07 | P.HP ---
Certification for Inpatient Patient admitted to: Inpatient With expected LOS: <2 Midnights Patient will require the following post-hospital care: None Practitioner: I am a practitioner with admitting privileges, knowledge of patient current condition, hospital course, and medical plan of care. Services: Services provided to patient in accordance with Admission requirements found in Title 42 Section 412.3 of the Code of Federal Regulations Patient History Date of Service: 12/20/22 Primary Care Provider: Nilton Reason for admission: Submandibular Erythema/Edema History of Present Illness: Patient is a 42 year old female with past medical history of type 1 diabetes, COPD, and anemia who came as a direct admit from Dr. German. Patient had her lower left second molar extracted 2 days ago and he has concern for developing submandibular edema and erythema. He wishes for her to be started on IV antibiotics. Tachycardic but afebrile upon arrival. Covid negative. Will obtain blood cultures, start patient on IV antibiotics, hydrate with IV fluids, and manage glucose. Allergies insulin detemir [From Levemir U-100 Insulin] Allergy (Verified 12/20/22 19:49) Anaphylaxis insulin glargine [From Lantus] Allergy (Verified 12/20/22 19:49) Unknown sulfamethoxazole [From Bactrim] Allergy (Verified 12/20/22 19:49) Hives tramadol Allergy (Verified 12/20/22 19:49) Anaphylaxis trimethoprim [From Bactrim] Allergy (Verified 12/20/22 19:49) Hives Home Medications: Doxycycline Hyclate 1 tab PO BID* 11/08/21 Insulin Degludec [Tresiba Flextouch U-100] 40 units SQ DAILY 11/08/21 Insulin Lispro [Humalog] 1 units SQ TID 11/08/21 clindamycin HCL [Clindamycin HCl] 1 tab PO Q6HP 11/08/21 - Past Medical/Surgical History Diabetic: Yes -: Diabetes mellitus type 1 -: Tobacco abuse -: COPD -: Tubal ligation -: Cyst removed from under left arm Psychosocial/ Personal History: The patient is . She has 4 children. She works at a local [employer] - Family History Father -: Diabetes Mother -: Diabetes - Social History Smoking Status: Current every day smoker Alcohol use: No CD- Drugs: No Caffeine use: Yes Place of Residence: Home Review of Systems ENT: Mouth Pain, Mouth Swelling Physical Examination - Physical Exam General: Alert, In no apparent distress HEENT: Atraumatic, EOMI, Sclerae nonicteric Neck: Supple, 2+ carotid pulse no bruit Respiratory: Clear to auscultation bilaterally, Normal air movement Cardiovascular: Regular rate/rhythm, Normal S1 S2 Gastrointestinal: Normal bowel sounds, No tenderness Musculoskeletal: No tenderness Integumentary: No rashes Neurological: Normal speech, Normal affect Assessment and Plan - Problems (Diagnosis) (1) Type 1 diabetes Current Visit: Yes Status: Chronic Qualifiers: Diabetes mellitus complication status: with ketoacidosis Diabetes mellitus complication detail: without coma Qualified Code(s): E10.10 - Type 1 diabetes mellitus with ketoacidosis without coma (2) Submandibular gland inflammation Current Visit: Yes Status: Acute (3) COPD (chronic obstructive pulmonary disease) Current Visit: Yes Status: Chronic Qualifiers: Emphysema type: unspecified - Plan Patient was directly admitted to the floor. Her labs later resulted and are suggestive of DKA-glucose 284, CO2 11, anion gap 20, moderate acetone level. However, patient is refusing insulin from us and only wants to take her own insulin. She is not actively vomiting or toxic appearing. She took 50 units of tresiba. Will recheck BMP, glucose, and acetone in 4 hours and go from there to see if she needs to and is willing to be transferred to ICU for insulin drip and DKA protocol. Continue IV zosyn for the submandibular edema/erythema and follow blood cultures. Lactate is elevated. BP is stable. Patient refused norco for pain as she states she has been taking that at home without improvement in pain. Low dose morphine ordered instead which she states has been helping her pain. Discharge Plan: Home Plan to discharge in: 48 Hours - Advance Directives Does patient have a Living Will: No Does patient have a Durable POA for Healthcare: No - Code Status/Comfort Care Code Status Assessed: Yes Code Status: Full Code Physician Review: Patient Assessed, Agree with Above Assessment and Plan Critical Care: No Time Spent Managing Pts Care (In Minutes): 50
[2022-12-20] MEDS ORDERED: ONDANSETRON 4 MG/2 ML VIAL IV PRN (19:17)
[2022-12-20] MEDS ORDERED: ACETAMINOPHEN 500 MG TAB PO PRN (19:17)
[2022-12-20] MEDS: NA CHLORIDE 0.9% 1,000 ML IV SCH ×2 (19:29→23:48)
[2022-12-20 20:23] LABS: Absolute Lymphocytes (CBC) 1.4 K/uL (0.7-4.9); Hematocrit 35.1 % (36.0-45.0); Lymphocytes % 22.6 % (15.3-44.8); MCV 94.1 fL (80-100); MPV 8.1 fL (7.6-11.3); RBC Red Blood Cell Count 3.73 M/uL (3.86-4.86)
[2022-12-20 20:42] LABS: Albumin 3.3 g/dL (3.4-5.0); Bilirubin Total 0.3 mg/dL (0.2-1.0); Magnesium 1.8 mg/dL (1.6-2.4); Potassium 3.8 mmol/L (3.5-5.1); Protein, Total 7.9 g/dL (6.4-8.2)
[2022-12-20] MEDS: INSULIN -REGULAR HUMAN 50 UNIT/0.5 ML ML SQ SCH (21:00)
[2022-12-20] MEDS: MORPHINE 2 MG/ML SYR IV PRN (21:09)
[2022-12-20] MEDS ORDERED: NA CHLORIDE 0.9% 1,000 ML IV ONE (22:12)
[2022-12-20] MEDS: HYDROCODONE/APAP 7.5/325 MG TAB PO PRN (22:33)
[2022-12-20 22:52] VITALS: BMI 28.7
[2022-12-20] MEDS: PIPER TAZO 3.375 GM in NA CHLORIDE 0.9% 100 ML IV SCH (23:44)
[2022-12-21 00:22] LABS: Specific Gravity 1.015 (1.005-1.030); Urine Bacteria <20 /HPF (<20); Urine Bilirubin NEGATIVE (Negative); Urine Blood 3+ (Negative); Urine Clarity Clear (Clear); Urine Color Colorless (Yellow); Urine Glucose 3+ (Negative); Urine Mucus Slight /HPF (None Seen); Urine Protein TRACE (Negative); Urine RBC <5 /HPF (None Seen); Urine Urobilinogen Normal (Normal)
[2022-12-21] MEDS: MELATONIN 5 MG TABLET PO PRN ×2 (00:25→21:02)
[2022-12-21] MEDS: MORPHINE 2 MG/ML SYR IV PRN (01:13)
[2022-12-21 02:11] LABS: BUN Blood Urea Nitrogen 6 mg/dL (7-18); Glomerular Filtration Rate 85 ml/min (=/>90); Glucose Level 219 mg/dL (74-106); Sodium Level 138 mmol/L (136-145)
[2022-12-21 02:12] LABS: Bicarbonate 13 mmol/L (21-32)
[2022-12-21] MEDS ORDERED: INSULIN -REGULAR HUMAN 100 UNIT in NA CHLORIDE 0.9% 100 ML IV SCH (02:47)
[2022-12-21] MEDS ORDERED: KETOROLAC 30 MG/ML INJ IV ONE (02:56)
[2022-12-21] MEDS ORDERED: NA CHLORIDE 0.9% 100 ML ONE (03:00)
[2022-12-21] MEDS: NACHLORIDE 0.45% 1,000 ML with POTASSIUM CL 20 MEQ IV SCH ×4 (03:00→07:03)
[2022-12-21] MEDS: D5.45NS W/KCL 20MEQ 1,000 ML IV SCH ×2 (03:02→09:56)
[2022-12-21] MEDS: MORPHINE 4 MG/ML SYR IV PRN (05:42)
[2022-12-21 05:48] LABS: BUN Blood Urea Nitrogen 5 mg/dL (7-18); Glomerular Filtration Rate 113 ml/min (=/>90); Glucose Level 206 mg/dL (74-106); Potassium 3.7 mmol/L (3.5-5.1); Sodium Level 137 mmol/L (136-145)
[2022-12-21 05:49] LABS: Bicarbonate 14 mmol/L (21-32)
[2022-12-21] MEDS ORDERED: POTASSIUM 25 MEQ EFFERV TAB PO ONE (07:00)
[2022-12-21] MEDS: INSULIN -REGULAR HUMAN 50 UNIT/0.5 ML ML SQ SCH ×4 (07:30→20:47)
[2022-12-21] MEDS: PIPER TAZO 3.375 GM in NA CHLORIDE 0.9% 100 ML IV SCH ×2 (08:24→09:00)
[2022-12-21 10:11] LABS: BUN Blood Urea Nitrogen 5 mg/dL (7-18); Bicarbonate 17 mmol/L (21-32); Glomerular Filtration Rate 118 ml/min (=/>90); Glucose Level 170 mg/dL (74-106); Potassium 3.9 mmol/L (3.5-5.1); Sodium Level 138 mmol/L (136-145)
[2022-12-21] MEDS: KETOROLAC 30 MG/ML INJ IV PRN ×2 (10:11→20:47)
--- NOTE | 2022-12-21 10:56 | PN ---
Date of Progress Note: 12/20/2022 Subjective: I am having a lot of pain that is throbbing like a heartbeat. Objective: The patient was examined at approximately 10:30 p.m. on 12/20/2022. Vital signs; tempera ture 97.5, pulse is 105, respiratory rate 12, blood pressure 160/92, SpO2 100% on room air. The rick ent is complaining of a lot of discomfort and it is radiating across the left side of the mandible an d left lower face. She still has a firm edema on the left lateral border of the mandible and lower f renu. It is warm to touch and flattened. The edema seems to be increased in the submandibular area a nd is approaching the midline. The swelling is still fairly soft in the submandibular area. The pat ient does not have any trismus. The intraoral exam is unchanged. Laboratory Values: White blood cell count 6.2, hematocrit 35.1. Her other laboratories are suggesti ve of diabetic ketoacidosis. Assessment: The patient's left lower facial swelling and submandibular edema appeared increasing and approaching the midline. The patient may have diabetic ketoacidosis. Plan: Continue IV Zosyn. The patient will continue to be managed by the hospitalist for her diabete s. I will examine the patient and re-evaluate for the need to image the left lower face and neck. JERO/ROSA Voice ID: [id number] Report ID: [id number]
--- NOTE | 2022-12-21 11:10 | PN ---
Date of Progress Note: 12/21/2022 Subjective: The patient is feeling better this morning and reports a little bit left facial swelling . She received Toradol IV during the night and this seems to have relieved the patient's pain adequa tely. Objective: The patient has been afebrile with stable vital signs. The patient was moved from the [facility] to the intensive care unit overnight for management of diabetic ketoacidosis. The patient is blaze ke, alert, and oriented this morning and complaining of less pain in the lower face and jaw. The temitope ma and erythema on the lower face at the left side of the mandible has diminished overnight. There i s less submandibular swelling and the edema is still soft. There is no edema in the floor of the addis th. The extraction site has not changed. The patient has normal range of opening. She does not rep ort any loss of sensation in the lip and chin. Assessment: There is some improvement in lower facial and submandibular edema. The patient has been afebrile. The patient is being managed for diabetic ketoacidosis in the intensive care unit. Plan: Because the left lower facial cellulitis and edema has diminished overnight, I do not recommen d a CT scan or other image at this time. Continue IV Zosyn. We will re-evaluate the patient tomorro w morning. JERO/ROSA Voice ID: [id number] Report ID: [id number]
--- NOTE | 2022-12-21 12:03 | P.PN ---
Subjective Date of Service: 12/21/22 Primary Care Provider: Nilton Chief Complaint: Submandibular Erythema/Edema Patient reported uncontrolled through the night. She states the pain was better with Toradol last night. No recorded fever. She is still in DKA. Physical Examination - Vital Signs Temperature: 97.9 F Blood Pressure: 140/97 Pulse: 95 Respirations: 15 Pulse Ox (%): 100 - Studies Laboratory Data (last 24 hrs) 12/21/22 09:28: Sodium 138, Potassium 3.9, BUN 5 L, Creatinine 0.56, Glucose 170 H 12/21/22 05:06: Sodium 137, Potassium 3.7, BUN 5 L, Creatinine 0.67, Glucose 206 H 12/21/22 01:42: Sodium 138, Potassium 4.0, BUN 6 L, Creatinine 0.88, Glucose 219 H 12/20/22 20:13: Sodium 138, Potassium 3.8, BUN 9, Creatinine 0.91, Glucose 284 H, Magnesium 1.8, Total Bilirubin 0.3, AST 29, ALT 83 H, Alkaline Phosphatase 143 H 12/20/22 20:13: WBC 6.20, Hgb 11.6 L, Hct 35.1 L, Plt Count 282 Assessment And Plan - Current Problems (Diagnosis) (1) DKA (diabetic ketoacidoses) Onset Date: 11/20/17 Current Visit: No Status: Resolved Qualifiers: Diabetes mellitus type: type 1 Diabetes mellitus complication detail: without coma Qualified Code(s): E10.10 - Type 1 diabetes mellitus with ketoacidosis without coma (2) Submandibular gland inflammation Current Visit: Yes Status: Acute - Plan Physical Exam General: Alert, In no apparent distress HEENT: Atraumatic, EOMI, Sclerae nonicteric. No erythema or swelling in the mouth, no exudates, left lower molar cavity, no discharge or purulence noted. Neck: Supple, no elevated JVD. Respiratory: Clear to auscultation bilaterally, Normal air movement Cardiovascular: Regular rate/rhythm, Normal S1 S2 Gastrointestinal: Normal bowel sounds, No tenderness Musculoskeletal: No tenderness Integumentary: No rashes Neurological: Normal speech, Normal affect. Plan: Continue DKA protocol with insulin drip and IV hydration. Serum bicarb level is improving and may be able to transition to subcutaneous insulin and start feeding today. Patient reported anaphylactic reaction to Lantus insulin. She uses Tresiba at home We will have a use of Tresiba insulin as inpatient because we are not able to tell if she will react to Semglee. Insulin sliding scale. Antibiotics-Rocephin and clindamycin. Pain management-IV morphine and Toradol.
[2022-12-21] MEDS: CEFTRIAXONE 1,000 MG in NA CHLORIDE 0.9% 50 ML IVPB SCH (12:13)
[2022-12-21 13:10] LABS: BUN Blood Urea Nitrogen 4 mg/dL (7-18); Bicarbonate 19 mmol/L (21-32); Glomerular Filtration Rate 107 ml/min (=/>90); Glucose Level 284 mg/dL (74-106); Potassium 3.6 mmol/L (3.5-5.1); Sodium Level 138 mmol/L (136-145)
[2022-12-21] MEDS: NA CHLORIDE 0.9% 1,000 ML IV SCH (16:29)
[2022-12-21] MEDS: CLINDAMYCIN 600MG/D5W 50 ML IV SCH (16:50)
[2022-12-21 16:57] LABS: BUN Blood Urea Nitrogen 4 mg/dL (7-18); Bicarbonate 20 mmol/L (21-32); Glomerular Filtration Rate 115 ml/min (=/>90); Glucose Level 111 mg/dL (74-106); Potassium 3.4 mmol/L (3.5-5.1); Sodium Level 139 mmol/L (136-145)
[2022-12-21] MEDS ORDERED: CLINDAMYCIN INJ 600 MG in NA CHLORIDE 0.9% 50 ML IV SCH (17:00)
[2022-12-21 21:33] LABS: BUN Blood Urea Nitrogen 6 mg/dL (7-18); Bicarbonate 20 mmol/L (21-32); Glomerular Filtration Rate 95 ml/min (=/>90); Glucose Level 295 mg/dL (74-106); Potassium 3.5 mmol/L (3.5-5.1); Sodium Level 139 mmol/L (136-145)
[2022-12-22] MEDS: NA CHLORIDE 0.9% 1,000 ML IV SCH ×3 (00:53→16:00)
[2022-12-22] MEDS: MORPHINE 4 MG/ML SYR IV PRN (00:53)
[2022-12-22] MEDS: CLINDAMYCIN 600MG/D5W 50 ML IV SCH ×3 (00:53→16:53)
[2022-12-22 05:00] LABS: Absolute Lymphocytes (CBC) 1.8 K/uL (0.7-4.9); Hematocrit 28.3 % (36.0-45.0); Lymphocytes % 46.3 % (15.3-44.8); MCV 89.8 fL (80-100); MPV 7.6 fL (7.6-11.3); RBC Red Blood Cell Count 3.15 M/uL (3.86-4.86)
[2022-12-22 05:15] LABS: Magnesium 1.8 mg/dL (1.6-2.4); Phosphorus 2.9 mg/dL (2.5-4.9); Potassium 3.2 mmol/L (3.5-5.1)
[2022-12-22] MEDS ORDERED: MAGNESIUM SULFATE 1 gm IVPB 1 GM/100 ML BAG IV ONE (05:47)
[2022-12-22] MEDS: KETOROLAC 30 MG/ML INJ IV PRN ×3 (07:07→22:49)
[2022-12-22] MEDS: INSULIN -REGULAR HUMAN 50 UNIT/0.5 ML ML SQ SCH ×4 (07:30→21:00)
[2022-12-22] MEDS ORDERED: POTASSIUM 25 MEQ EFFERV TAB PO ONE (09:00)
[2022-12-22] MEDS: CEFTRIAXONE 1,000 MG in NA CHLORIDE 0.9% 50 ML IVPB SCH (09:18)
[2022-12-22] MEDS: HYDROCODONE/APAP 7.5/325 MG TAB PO PRN (09:39)
--- NOTE | 2022-12-22 15:13 | PN ---
Subjective: "I am doing much better today." Objective: The patient has been afebrile with stable vital signs. She has had less pain in the left lower face and jaw over the past 24 hours. Her pain has been mostly managed with p.o. medication. Patient has very little extraoral edema now. There is still a little bit of firm swelling on the lef t lateral border of the mandible and cheek. All of the submandibular swelling is soft and has resolv ed. There is no extraoral erythema. Intraorally, there was some mild firm swelling in the left elidia ibular vestibule. The extraction site appears to be healing well. There is some fibrinous exudate a round the edge of the wound. The floor of the mouth is soft. There is no edema in the oropharynx. The patient reports normal sensation of the left chin and tongue. She has normal range of opening of the mandible and no difficulty masticating food. Assessment: The patient's left facial cellulitis and odontogenic infection appeared to be responding to the IV antibiotics. There is no clinical need for imaging or need for incision and drainage. Plan: Continue IV antibiotics for 24 hours. After this, the patient could be discharged to home. I recommend discharge with Augmentin p.o. for 5 days. Follow up will be arranged through my office. JERO/ROSA Voice ID: [id number] Report ID: [id number]
--- NOTE | 2022-12-22 16:14 | P.PN ---
Subjective Date of Service: 12/22/22 Primary Care Provider: Nilton Chief Complaint: Submandibular Erythema/Edema Patient states she feels better today. No recorded fever. Physical Examination - Vital Signs Temperature: 97.6 F Blood Pressure: 133/90 Pulse: 84 Respirations: 18 Pulse Ox (%): 100 - Studies Laboratory Data (last 24 hrs) 12/22/22 : Potassium Cancelled 12/22/22 04:35: Sodium 144 D, Potassium 3.2 L, BUN 7, Creatinine 0.51 L, Glucose 129 H, Phosphorus 2.9, Magnesium 1.8, Triglycerides 169 H, Cholesterol 159, HDL Cholesterol 36 L, Cholesterol/HDL Ratio 4.42 12/22/22 04:35: WBC 4.00 L, Hgb 9.5 L, Hct 28.3 L, Plt Count 284 12/21/22 21:04: Sodium 139, Potassium 3.5, BUN 6 L, Creatinine 0.80, Glucose 295 H 12/21/22 16:34: Sodium 139, Potassium 3.4 L, BUN 4 L, Creatinine 0.63, Glucose 111 H Assessment And Plan - Current Problems (Diagnosis) (1) DKA (diabetic ketoacidoses) Onset Date: 11/20/17 Current Visit: No Status: Resolved Qualifiers: Diabetes mellitus type: type 1 Diabetes mellitus complication detail: without coma Qualified Code(s): E10.10 - Type 1 diabetes mellitus with ketoacidosis without coma (2) Submandibular gland inflammation Current Visit: Yes Status: Acute - Plan Physical Exam General: Alert, In no apparent distress HEENT: No erythema or swelling in the mouth, no exudates, left lower molar cavity, no discharge or purulence noted. Neck: Supple, no elevated JVD. Respiratory: Clear to auscultation bilaterally, Normal air movement Cardiovascular: Regular rate/rhythm, Normal S1 S2 Gastrointestinal: Normal bowel sounds, No tenderness Musculoskeletal: No tenderness Integumentary: No rashes Neurological: Normal speech, Normal affect. Plan: DKA resolved. Patient transition to subcutaneous insulin-Tresiba and insulin sliding scale. Discontinue IV fluid Continue Antibiotics-Rocephin and clindamycin. Pain management-IV morphine and Toradol. Dr. German input appreciated. Anticipating discharge in a.m. with oral antibiotics. Monitor and correct electrolytes as needed.
[2022-12-22 20:38] VITALS: O2SAT 100
[2022-12-23] MEDS: CLINDAMYCIN 600MG/D5W 50 ML IV SCH ×2 (00:17→08:49)
[2022-12-23] MEDS: HYDROCODONE/APAP 7.5/325 MG TAB PO PRN ×2 (00:24→08:21)
[2022-12-23 03:47] LABS: Absolute Lymphocytes (CBC) 2.2 K/uL (0.7-4.9); Hematocrit 26.5 % (36.0-45.0); Lymphocytes % 51.1 % (15.3-44.8); MPV 7.7 fL (7.6-11.3); RBC Red Blood Cell Count 2.94 M/uL (3.86-4.86)
[2022-12-23] MEDS: KETOROLAC 30 MG/ML INJ IV PRN (03:55)
[2022-12-23 03:58] LABS: Magnesium 2.1 mg/dL (1.6-2.4); Phosphorus 3.1 mg/dL (2.5-4.9); Potassium 3.3 mmol/L (3.5-5.1)
[2022-12-23] MEDS ORDERED: POTASSIUM CL SA 10 MEQ TAB PO ONE (04:24)
[2022-12-23 04:56] LABS: Blood Morphology Comment NOT SEEN (NOT SEEN); Platelet Estimate ADEQ
[2022-12-23 08:05] VITALS: BP 132/85; TEMP 98.2
[2022-12-23] MEDS: INSULIN -REGULAR HUMAN 50 UNIT/0.5 ML ML SQ SCH (08:06)
[2022-12-23] MEDS: CEFTRIAXONE 1,000 MG in NA CHLORIDE 0.9% 50 ML IVPB SCH (08:07)
--- NOTE | 2022-12-23 08:59 | P.DS ---
Admission Date: 12/20/22 Discharge Date: 12/23/22 Primary Care Provider: Nilton Disposition: ROUTINE DISCHARGE Discharge Condition: FAIR Reason for Admission: Submandibular Erythema/Edema - Problems (1) DKA (diabetic ketoacidoses) Onset Date: 11/20/17 Current Visit: No Status: Resolved Qualifiers: Diabetes mellitus type: type 1 Diabetes mellitus complication detail: without coma Qualified Code(s): E10.10 - Type 1 diabetes mellitus with ketoacidosis without coma (2) Submandibular gland inflammation Current Visit: Yes Status: Acute Brief History of Present Illness: Patient is a 42 year old female with past medical history of type 1 diabetes, COPD, and anemia who came as a direct admit from Dr. German. Patient had her lower left second molar extracted 2 days ago and he has concern for developing submandibular edema and erythema. He wishes for her to be started on IV antibiotics. She had tachycardic but afebrile upon arrival. Covid negative. Patient admitted for further management. Hospital Course: Patient found to be in DKA after lab resulted. She was transferred to the ICU and started on DKA protocol with insulin drip and IV hydration. DKA resolved. Patient transition to subcutaneous insulin-Tresiba and insulin sliding scale. Her jaw infection was treated with IV Rocephin and clindamycin. She had no leukocytosis and she was afebrile. Pain management with-IV morphine and Toradol. Dr. German saw and followed patient during the hospital stay. Patient has clinically improved and deemed stable for discharge. She is prescribed Augmentin per Dr. German recommendation Vital Signs/Physical Exam: Temp Pulse Resp BP Pulse Ox 98.2 F 86 16 132/85 98 12/23/22 08:00 12/23/22 08:00 12/23/22 08:21 12/23/22 08:00 12/23/22 08:21 General: Alert, In no apparent distress, Oriented x3 HEENT: Mucous membr. moist/pink Neck: JVD not distended Respiratory: Clear to auscultation bilaterally, Normal air movement Cardiovascular: No edema, Regular rate/rhythm, Normal S1 S2 Gastrointestinal: Soft and benign, Non-distended Musculoskeletal: No swelling Integumentary: No rashes, No cyanosis Neurological: Normal strength at 5/5 x4 extr Laboratory Data at Discharge: WBC 4.40 K/uL (4.3-10.9) 12/23/22 03:10 Hgb 8.9 g/dL (12.0-15.0) L 12/23/22 03:10 Hct 26.5 % (36.0-45.0) L 12/23/22 03:10 Plt Count 290 K/uL (152-406) 12/23/22 03:10 Sodium 144 mmol/L (136-145) 12/23/22 03:10 Potassium 3.3 mmol/L (3.5-5.1) L 12/23/22 03:10 BUN 13 mg/dL (7-18) 12/23/22 03:10 Creatinine 0.48 mg/dL (0.55-1.02) L 12/23/22 03:10 Glucose 135 mg/dL (74-106) H 12/23/22 03:10 Phosphorus 3.1 mg/dL (2.5-4.9) 12/23/22 03:10 Magnesium 2.1 mg/dL (1.6-2.4) 12/23/22 03:10 Total Bilirubin 0.3 mg/dL (0.2-1.0) 12/20/22 20:13 AST 29 U/L (15-37) 12/20/22 20:13 ALT 83 U/L (13-56) H 12/20/22 20:13 Alkaline Phosphatase 143 U/L (45-117) H 12/20/22 20:13 Triglycerides 169 mg/dL (<150) H 12/22/22 04:35 Cholesterol 159 mg/dL (<200) 12/22/22 04:35 HDL Cholesterol 36 mg/dL (40-60) L 12/22/22 04:35 Cholesterol/HDL Ratio 4.42 12/22/22 04:35 Home Medications: RX: Insulin Degludec [Tresiba Flextouch U-100] 40 units SQ DAILY 11/08/21 RX: Insulin Lispro [Humalog] 20 units SQ DAILY AT SUPPER 11/08/21 Amox/Clavulanate [Augmentin 875-125 Tab] 1 each PO BID #14 tab 12/23/22 RX: Hydrocodone/Acetaminophen [Hydrocodone-Acetamin 7.5-325] 1 each PO Q4H PRN #10 tab 12/23/22 RX: Ibuprofen 400 mg PO TID #30 tab 12/23/22 New Medications: Amox/Clavulanate [Augmentin 875-125 Tab] 1 each PO BID #14 tab RX: Hydrocodone/Acetaminophen [Hydrocodone-Acetamin 7.5-325] 1 each PO Q4H PRN #10 tab PRN Reason: Pain Scale 5-7 (Moderate) RX: Ibuprofen 400 mg PO TID #30 tab Diet: ADA Activity: Ad anthony Followup: Mata German DDS, MD [ACTIVE - CAN ADMIT] - 1 Week Time spent managing pt's care (in minutes): 33
[2022-12-23] MEDS ORDERED: AMOX/K CLAV 875 MG TAB PO SCH (10:00)
== END 2022-12-23 10:56 | disposition home or self-care (01) | DRG 639 ==
LOC: ERHOLD 17:10 → 2ND 18:31 → 3RD-ICU 12-21 02:40 → 4TH 12-21 23:48
PROVIDERS: ADMIT Internal Medicine; ATTEND Internal Medicine
DX: E10.10 Type 1 diabetes mellitus with ketoacidosis without coma (principal); J43.9 Emphysema, unspecified; K12.1 Other forms of stomatitis; F17.200 Nicotine dependence, unspecified, uncomplicated; Z88.8 Allergy status to other drugs, medicaments and biological substances; Z88.5 Allergy status to narcotic agent; Z88.1 Allergy status to other antibiotic agents; Z79.4 Long term (current) use of insulin; Z98.51 Tubal ligation status; Z79.899 Other long term (current) drug therapy; Z20.822 Contact with and (suspected) exposure to COVID-19
CPT/HCPCS: 36415; 80048; 80053; 80061; 81001; 82010; 82947; 83036; 83605; 83735; 83930; 84100; 84703; 85025; 87811; J1815; J2270; J2543; J3475; J3480; J7030

== ENCOUNTER → 2023-10-02 | Emergency (ER) | payer BC ==
[~2023-10-02] MED LIST: NA CHLORIDE 0.9% 1,000 ML ONE
--- OUTSIDE RECORDS SUMMARY | 2023-10-02 04:20 | XMS REPORT | Continuity of Care Document ---
Author Name Unknown Address [address] [place] [address] [facility] Address [address] [place] [address] Care Team Providers Care Shoe Polisher Name Role Phone [email or web address] Attending Clinician Unavaila ble [email or web address] Admitting Clinician Unavaila ble Encounters Start Date/Time End Date/Time Encounter Type Admission Type Attending Clinicians Care Facility Care Department Encounter ID Source 2023-08-13 00:00:00 2023-08-13 00:00:00 Outpatient [email or web address] [facility] [id number] [facility]
[2023-10-02 05:14] LABS: Lymphocytes % 42.1 % (15.3-44.8); MCV 88.8 fL (80-100); MPV 8.3 fL (7.6-11.3); Platelets 318 thou/uL (152-406); RBC Red Blood Cell Count 4.85 M/uL (3.86-4.86)
[2023-10-02 05:29] LABS: Albumin 4.1 g/dL (3.4-5.0); Bilirubin Total 0.5 mg/dL (0.2-1.0); Protein, Total 9.4 g/dL (6.4-8.2)
--- NOTE | 2023-10-02 06:42 | EDPHYS ---
Physician Documentation [facility] Name: Raphael Su Age: 43 yrs Sex: Female : 1980 Arrival Date: 10/02/2023 Time: 04:17 Bed 2 Private MD: ED Physician Tony Bauman HPI: 10/02 04:33 This 43 yrs old Black Female presents to ER via Unassigned with complaints of High sp4 Blood Sugar, Shortness Of Breath. 05:01 PMH - Allergies: Bactrim; Lantus; tramadol; Home Meds: Insulin: Humulin 70/30 Sub-Q; sp4 PMHx: Diabetes - IDDM; High Cholesterol; PSHx: tubal ligation;. 05:32 43-year-old black female presents with near syncopal episode starting yesterday feeling sp4 sluggish unwell and lightheaded also dizzy with blood sugar 222 measured prior to arrival . Patient reported associated tachycardia. Patient takes Trulicity and Tresiba at home. Was seen by his insulin degludec solution -long-acting insulin with half-life 25 hours. Trulicity is dulaglutide with half-life of 5 days, activator of glucagon like peptide 1 receptors. Injectable solution of 0.75 mg of 0.5 mL.. 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 - Social history:: Smoking status: Reported history of juuling and/or vaping. - Family history:: not pertinent. ROS: 05:32 Constitutional: Negative for fever, chills, and weight loss, positive for sp4 lightheadedness, positive dizziness, positive near syncopal episode, positive palpitations Eyes: Negative for injury, pain, redness, and discharge, 05:32 All other systems are negative, Exam: 05:32 Constitutional: This is a well developed, well nourished patient who is awake, alert, sp4 and in no acute distress. Head/Face: Normocephalic, atraumatic. Eyes: Pupils equal round and reactive to light, extra-ocular motions intact. Lids and lashes normal. Conjunctiva and sclera are not injected. Cornea within normal limits. Periorbital areas with no swelling, redness, or edema. ENT: Nares patent. No nasal discharge, no septal abnormalities noted. Tympanic membranes are normal and external auditory canals are clear. Oropharynx with no redness, swelling, or masses, exudates, or evidence of obstruction, uvula midline. Mucous membranes moist. Neck: Trachea midline, no thyromegaly or masses palpated, and no cervical lymphadenopathy. Supple, full range of motion without nuchal rigidity, or vertebral point tenderness. Chest/axilla: Normal chest wall appearance and motion. Nontender with no deformity. No lesions are appreciated. Cardiovascular: Regular tachycardia, no gallops, murmurs, or rubs. Normal PMI, no JVD. No pulse deficits. Respiratory: Lungs have equal breath sounds bilaterally, clear to auscultation and percussion. No rales, rhonchi or wheezes noted. No increased work of breathing, no retractions or nasal flaring. Abdomen/GI: Soft, non-tender, with normal bowel sounds. No distension or tympany. No guarding or rebound. No evidence of tenderness throughout. Back: No spinal tenderness. No costovertebral tenderness. Skin: Warm, dry with normal turgor. Normal color with no rashes, no lesions, and no evidence of cellulitis. MS/ Extremity: Pulses equal, no cyanosis. Neurovascular intact. Full, normal range of motion. Neuro: Awake and alert, GCS 15, oriented to person, place, time, and situation. Cranial nerves II-XII grossly intact. Motor strength 5/5 in all extremities. Sensory grossly intact. Psych: Awake, alert, with orientation to person, place and time. Behavior, mood, and affect are within normal limits 06:35 ECG was reviewed by the Attending Physician. EKG time 0 536, there is sinus tachycardia sp4 at the rate of 103. Otherwise normal EKG Vital Signs: 04:24 BP 119 / 81; Pulse 118; Resp 18; Temp 98.9; Pulse Ox 100% on R/A; Weight 77.11 kg; 5 Height 5 ft. 6 in. (R); 06:26 BP 95 / 72; Pulse 103; Resp 18 S; Pulse Ox 100% on R/A; as6 07:34 BP 126 / 81; Pulse 101; Resp 18; Temp 97.8; Pulse Ox 99% on R/A; ph 04:24 Body Mass Index 27.44 (77.11 kg, 167.64 cm) 5 MDM: 04:33 Patient medically screened. sp4 10/02 04:31 Order name: CBC with Diff; Complete Time: 06:35 sp4 10/02 04:31 Order name: CMP; Complete Time: 06:35 sp4 10/02 04:31 Order name: Lipase; Complete Time: 06:35 sp4 10/02 04:33 Order name: Influenza Screen (a \T\ B); Complete Time: 06:35 sp4 10/02 05:09 Order name: EKG; Complete Time: 05:10 sp4 10/02 04:31 Order name: IV Saline Lock; Complete Time: 04:49 sp4 10/02 04:31 Order name: Labs collected and sent; Complete Time: 04:49 sp4 10/02 05:09 Order name: EKG Strip; Complete Time: 05:39 sp4 10/02 05:09 Order name: EKG - Nurse/Tech; Complete Time: 05:39 sp4 EC:35 Rate is 103 beats/min. Rhythm is regular, Sinus tachycardia. QRS [place] is Normal. [place] sp4 interval is normal. QRS interval is normal. QT interval is normal. No Q waves. T waves are Normal. Clinical impression: Normal ECG. Interpreted by me. Reviewed by me. Administered Medications: 04:48 Drug: NS 0.9% IV 1000 ml IV at 1 bolus Per protocol; 1000 mL bolus Route: IV; Rate: 1 as6 bolus; Site: right hand; 05:39 Drug: NS 0.9% IV 1000 ml IV at 125 ml/hr continuous Route: IV; Rate: 125 ml/hr; Site: as6 right hand; Disposition Summary: 12/21/23 06:42 Discharge Ordered Notes: Continue daily insulin as prescribed Location: Home sp4 Problem: new sp4 Symptoms: have improved sp4 Condition: Stable sp4 Diagnosis - Syncope Near sp4 - Other specified diabetes mellitus with hyperglycemia sp4 Followup: sp4 - With: Private Physician - When: 7 - 10 days - Reason: Recheck today's complaints Discharge Instructions: - Discharge Summary Sheet sp4 - Hyperglycemia sp4 Forms: - Work release form ph - Patient Portal Instructions sp4 Signatures: Dispatcher [employer] Dwight Villa RN RN as6 Patience Duff RN RN vc1 Tony Bauman MD MD sp4
--- NOTE | 2023-10-02 06:42 | ER ---
Nurse's Notes [facility] Name: Raphael Su Age: 43 yrs Sex: Female : 1980 Arrival Date: 10/02/2023 Time: 04:17 Bed 2 Private MD: Diagnosis: Syncope Near;Other specified diabetes mellitus with hyperglycemia Presentation: 10/02 04:46 Chief complaint: Patient states: My sugar at home was 222 and I'm short of breath when vc1 I move around. Coronavirus screen: Vaccine status: Patient reports receiving the 2nd dose of the covid vaccine. At this time, the client does not indicate any symptoms associated with coronavirus-19. Ebola Screen: Patient negative for fever greater than or equal to 101.5 degrees Fahrenheit, and additional compatible Ebola Virus Disease symptoms Patient denies exposure to infectious person. Patient denies travel to an Ebola-affected area in the 21 days before illness onset. No symptoms or risks identified at this time. Initial Sepsis Screen: Does the patient meet any 2 criteria? HR > 90 bpm. No. Patient's initial sepsis screen is negative. Does the patient have a suspected source of infection? No. Patient's initial sepsis screen is negative. Risk Assessment: Do you want to hurt yourself or someone else? Patient reports no desire to harm self or others. Onset of symptoms was October 02, 2023. 04:46 Method Of Arrival: Ambulatory vc1 04:46 Acuity: SHARON 3 vc1 Triage Assessment: 04:51 General: Appears in no apparent distress. comfortable, Behavior is calm, cooperative, vc1 appropriate for age. Pain: Denies pain. EENT: No deficits noted. No signs and/or symptoms were reported regarding the EENT system. Neuro: Level of Consciousness is awake, alert, obeys commands, Oriented to person, place, time, situation, Appropriate for age. Cardiovascular: No deficits noted. Respiratory: Reports shortness of breath on exertion Onset: The symptoms/episode began/occurred gradually, the patient has mild shortness of breath. GI: No deficits noted. No signs and/or symptoms were reported involving the gastrointestinal system. : No deficits noted. No signs and/or symptoms were reported regarding the genitourinary system. Derm: No deficits noted. No signs and/or symptoms reported regarding the dermatologic system. Musculoskeletal: No deficits noted. No signs and/or symptoms reported regarding the musculoskeletal system. 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 - Social history:: Smoking status: Reported history of juuling and/or vaping. - Family history:: not pertinent. Screenin:52 [facility] ED Fall Risk Assessment (Adult) History of falling in the last 3 months, vc1 including since admission No falls in past 3 months (0 pts) Confusion or Disorientation No (0 pts) Intoxicated or Sedated No (0 pts) Impaired Gait No (0 pts) Mobility Assist Device Used No (0 pt) Altered Elimination No (0 pt) Score/Fall Risk Level 0 - 2 = Low Risk Oriented to surroundings, Maintained a safe environment, Educated pt \T\ family on fall prevention, incl call for assistance when getting out of bed. Abuse screen: Denies threats or abuse. Nutritional screening: No deficits noted. Tuberculosis screening: No symptoms or risk factors identified. Assessment: 04:52 Cardiovascular: Rhythm is sinus tachycardia. Respiratory: Airway is patent Respiratory vc1 effort is even, unlabored, Breath sounds are clear. 06:27 Reassessment: Patient appears in no apparent distress at this time. Patient and/or as6 family updated on plan of care and expected duration. Pain level reassessed. 06:53 Reassessment: Pt to be discharged after fluids infuse. vc1 Vital Signs: 04:24 BP 119 / 81; Pulse 118; Resp 18; Temp 98.9; Pulse Ox 100% on R/A; Weight 77.11 kg; mc5 Height 5 ft. 6 in. (R); 06:26 BP 95 / 72; Pulse 103; Resp 18 S; Pulse Ox 100% on R/A; as6 07:34 BP 126 / 81; Pulse 101; Resp 18; Temp 97.8; Pulse Ox 99% on R/A; ph 04:24 Body Mass Index 27.44 (77.11 kg, 167.64 cm) 5 ED Course: 04:19 Patient arrived in ED. [id number] 04:31 Tony Bauman MD is Attending Physician. sp4 04:46 Patience Duff RN is Primary Nurse. vc1 04:47 Triage completed. vc1 04:51 Arm band placed on left wrist. vc1 04:53 Patient has correct armband on for positive identification. Bed in low position. Call vc1 light in reach. Pulse ox on. NIBP on. 07:41 No provider procedures requiring assistance completed. IV discontinued, intact, iw bleeding controlled, No redness/swelling at site. Pressure dressing applied. Administered Medications: 04:48 Drug: NS 0.9% IV 1000 ml IV at 1 bolus Per protocol; 1000 mL bolus Route: IV; Rate: 1 as6 bolus; Site: right hand; 05:39 Drug: NS 0.9% IV 1000 ml IV at 125 ml/hr continuous Route: IV; Rate: 125 ml/hr; Site: as6 right hand; Medication: 04:53 VIS not applicable for this client. vc1 Outcome: 06:42 Discharge ordered by . sp4 07:41 Discharged to home ambulatory, with significant other, iw 07:41 Condition: good 07:41 Discharge instructions given to patient, Instructed on discharge instructions, follow up and referral plans. Demonstrated understanding of instructions, follow-up care, 07:41 Patient left the ED. iw Signatures: Roselyn Hooker, RN RN Lili Ellis RN RN Suys Diggs [email or web address] Dwight Antonio RN RN as6 Patience Duff, VANESSA MENDEZ vc1 Tony Bauman MD MD sp4 Deysi Palma [facility]
[2023-10-02 07:49] VITALS: BP 126/81; TEMP 97.8; O2SAT 99
--- NOTE | 2023-10-03 15:10 | EKG ---
Test Date: 2023-10-02 Test Time: 05:36:47 Collections Technician: MEASUREMENT RESULTS: Intervals: Rate: 103 CO: 156 QRSD: 80 QT: 342 QTc: 448 [place]: P: 80 CO: 156 QRS: 81 T: 70 INTERPRETIVE STATEMENTS: Sinus tachycardia Otherwise normal ECG Compared to ECG 11/07/2021 13:57:34 No significant changes Electronically Signed On 10-03-23 15:08:03 DIRECTOR OF PROMOTIONS by Gerald Liriano
== END ==
LOC: ER 04:17
DX: E13.65 Other specified diabetes mellitus with hyperglycemia (principal); Z79.4 Long term (current) use of insulin; Z88.1 Allergy status to other antibiotic agents; Z88.5 Allergy status to narcotic agent; Z88.8 Allergy status to other drugs, medicaments and biological substances
CPT/HCPCS: 93005; 85025; 36415; 83690; 80053; 87804 ×2; 99284; J7030 ×2

== ENCOUNTER 2024-10-17 09:35 | Emergency (ER) | payer BC ==
--- OUTSIDE RECORDS SUMMARY | 2024-10-17 09:40 | XMS REPORT | Continuity of Care Document ---
Author Name Unknown Address [address] [facility] [address] [place] [address] [facility] thconnect Address [address] [facility]. [address] [place] [address] Care Team Providers Care Subcontracts Manager Name Role Phone PAM ALEMAN Primary Care Physician UnaBERNARDO Caceres Attending Clinician UnavailIsabel TAPIA, Pedro Attending Clinician [phone] Bernardo Nicolas MD Attending Clinician [phone] Lacie Moncada RN Attending Clinician Nava Hackett RN Attending Clinician Unavailable DOMINGO RAYA Attending Clinician Unavailable DOMINGO RAYA Attending Clinician Unavailable Bony WARREN, Roxana Antunez Attending Clinician + Ashwini Daigle MD Attending Clinician [phone] Juan Francisco Marquis MD Attending Clinician [phone] SID SANTANA Attending Clinician Unavailable Koko Spence MD Attending Clinician [phone] Sid Santana DO Attending Clinician [phone] LASHELL FAJARDO Attending Clinician Unavailjorge Fajardo MD, Lashell S Attending Clinician [phone] Doctor Unassigned, [place] Attending Clinician U tree Blanchard MD, Michelle Vasques Attending Clinician [phone] Josefina Harden Attending Clinician Josefina DIAZ Attending Clinician Unavailable ASHWINI DAIGLE Admitting Clinician Unavailable Ashwini Daigle MD Admitting Clinician [phone] Josefina DIAZ Admitting Clinician Unavailable Payers Payer Name Policy Type Policy Number Effective Date Expirati on Date Source Problems Condition Name Condition Details Condition Category Status Onset Date Resolution Date Last Treatment Date Treating Clinician Comments Source Hyperglyce andrew Hyperglyce andrew Disease Active 05-09 00:00: 00 [facility] Type 1 diabetes mellitus Type 1 diabetes mellitus Disease Active 11-06 00:00: 00 [facility] Hyperchole sterolemia Hyperchole sterolemia Disease Active 11-06 00:00: 00 [facility] Lump of right breast Lump of right breast Disease Active 06-24 00:00: 00 [facility] Encounter for smoking cessation counseling Encounter for smoking cessation counseling Disease Active 12-09 00:00: 00 [facility] Abscess of buttock, right Abscess of buttock, right Disease Active 12-09 00:00: 00 [facility] Vulvar cyst Vulvar cyst Disease Active 12-09 00:00: 00 [facility] History of syphilis History of syphilis Disease Active 03-28 00:00: 00 Overview: Formattin g of this note might be different from the original. Treated around 1997. [facility] Cervical high risk human papillomav irus (HPV) DNA test positive Cervical high risk human papillomav irus (HPV) DNA test positive Disease Active 03-16 00:00: 00 Overview: Formattin g of this note might be different from the original. Pap pending [facility] History of sterilizat ion procedure History of sterilizat ion procedure Disease Active 03-14 00:00: 00 Overview: Formattin g of this note might be different from the original. 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 Disease Resolve d 10-20 00:00: 00 2014-03-14 00:00:00 2015-07-14 17:19:31 [facility] Allergies, Adverse Reactions, Alerts Allergy Name Allergy Type Status Severity Reaction(s) Onset Date Inactive Date Treating Clinician Comments Source INSULIN GLARGINE DRUG INGREDI Active Anaphylaxis 12-24 00:00: 00 [facility] Sulfamet hoxazole -Trimeth oprim Propensi ty to adverse reaction s Active Hives 14 00:00: 00 [facility] Insulin Glargine Propensi ty to adverse reaction s Active Anaphylaxis 14 00:00: 00 [facility] SULFAMET HOXAZOLE -TRIMETH OPRIM DRUG Active Hives -14 00:00: 00 [facility] TRAMADOL DRUG INGREDI Active Anaphylaxis 05-09 00:00: 00 [facility] Tramadol Drug Allergy Active Shortness of Breath 05-09 00:00: 00 [facility] NO KNOWN ALLERGIE S Drug Class Active [facility] Social History Social Habit Start Date Stop Date Quantity Comments Source History of tobacco use Passive smoker [facility] Gender identity Univ ersity [facility] Sexual orientation U [employer]iversity [facility] Tobacco Comment 2024-05-11 00:00:00 2024-05-11 00:00:00 Socially, quit three years ago [facility] Tobacco use and exposure 2024-05-11 00:00:00 2024-05-11 00:00:00 Smokeless tobacco non-user [facility] Alcoholic beverage intake 2024-05-11 00:00:00 2024-05-11 00:00:00 Current drinker of alcohol (finding) [facility] Alcohol intake 2023-10-21 00:00:00 2023-10-21 00:00:00 Current drinker of alcohol (finding) [facility] History of Social function 2023-07-22 00:00:00 2023-07-22 00:00:00 [facility] Exposure to SARS-CoV-2 (event) 2022-12-14 00:00:00 2022-12-24 13:22:00 Not sure [facility] Sex assigned at 1980 00:00:00 1980 00:00:00 [facility] Smoking Status Start Date Stop Date Source Ex-smoker 2024-05-11 00:00:00 2024-05-11 00:00:00 [facility] Occasional tobacco smoker 2023-06-10 00:00:00 [facility] Medications Ordered Medication Name Filled Medication Name Start Date Stop Date Current Medication? Ordering Clinician Indication Dosage Frequency Signature (SIG) Comments Components Source insulin lispro (HUMALOG KWIKPEN INSULIN) 100 unit/mL pen injector 05-21 00:00: 00 Yes [id number] 9U inject 9-16 Units under the skin in the morning and 9-16 Units at noon and 9-16 Units in the evening. inject before meals. [facility] insulin lispro (human) (HumaLOG U-100) injection 7 Units 05-12 22:00: 00 Yes 7U 7 Units, Subcutaneo us, TID MEALS, First dose (after last modificati on) on Fri05/12/24 at 1700, Until Discontinu ed, Routine [facility] insulin detemir U-100 (LEVEMIR U-100 INSULIN) injection 30 Units 05-12 22:00: 00 Yes 30U 30 Units, Subcutaneo us, Q24H, First dose (after last modificati on) on Fri05/12/24 at 1700, Until Discontinu ed, Routine, Restricted - To be dispensed only to: Continuati on from home [facility] glucagon (GLUCAGEN DIAGNOSTIC KIT) injection 1 mg 05-12 19:37: 20 Yes 1mg 1 mg, Intramuscu lar, PRN, Starting on Fri05/12/24 at 1437, Until Discontinu ed, ANDRE, Blood Glucose < or = 70 mg/dL and patient is NPO, unable to swallow or has mental changes. [facility] dextrose 50 % in water (D50W) injection 25 mL 05-12 19:37: 20 Yes 25mL 25 mL, Slow IV Push, PRN, Starting on Fri05/12/24 at 1437, Until Discontinu ed, ANDRE, Blood Glucose < or = 70 mg/dL and patient is NPO, unable to swallow or has mental status changes. [facility] ferrous sulfate 324 mg (65 mg iron) EC tablet 05-12 16:17: 23 Yes 324mg Take 1 tablet by mouth in the morning. [facility] levothyroxi ne 50 mcg tablet 05-12 16:17: 23 Yes 50ug Take 1 tablet by mouth every morning. [facility] acetaminoph en-codeine 300-30 mg tablet 05-12 16:17: 17 05-12 00:00 :00 No Take 1 tablet every 8 hours by oral route. [facility] celecoxib 200 mg capsule 05-12 16:17: 17 05-12 00:00 :00 No TAKE 1 CAPSULE BY MOUTH WITH FOOD THE NIGHT BEFORE. [facility] IBUPROFEN ORAL 05-12 14:56: 02 05-12 00:00 :00 No Take by mouth. [facility] KCL (KLOR-CON M20) tablet 40 mEq 05-12 12:45: 00 05-12 12:45 :00 No 40meq 40 mEq, Oral, ONCE, 1 dose, On Fri05/12/24 at 0745, Routine [facility] gabapentin 300 mg capsule 05-12 00:00: 00 Yes 300mg Take 1 capsule by mouth in the morning and 1 capsule in the evening. [facility] insulin degludec (TRESIBA FLEXTOUCH U-200) 200 unit/mL (3 mL) InPn 05-12 00:00: 00 08-21 05:59 :00 No [id number] 30U inject 30 Units under the skin in the morning for 100 days. [facility] insulin degludec (TRESIBA U-100 INSULIN) 100 unit/mL Soln 05-12 00:00: 00 06-12 04:59 :00 No [id number] 30U inject 30 Units under the skin every 24 (twenty-fo ur) hours for 30 days. [facility] insulin lispro, human, 100 unit/mL injection 05-12 00:00: 00 05-21 00:00 :00 No [id number] 7U inject 7 Units under the skin in the morning and 7 Units at noon and 7 Units in the evening. inject before meals. Do all this for 30 days. [facility] insulin lispro (human) (HumaLOG U-100) injection 8 Units 05-11 22:00: 00 05-12 19:37 :43 No 8U 8 Units, Subcutaneo us, TID MEALS, First dose (after last modificati on) on Fri05/11/24 at 1700, Until Discontinu ed, Routine [facility] insulin detemir U-100 (LEVEMIR U-100 INSULIN) injection 25 Units 05-11 22:00: 00 05-12 19:37 :43 No 25U 25 Units, Subcutaneo us, Q24H, First dose (after last modificati on) on Fri05/11/24 at 1700, Until Discontinu ed, Routine, Restricted - To be dispensed only to: Continuati on from home [facility] sennosides- docusate sodium (SENOKOT-S) 8.6-50 mg per tablet 1 tablet 05-11 14:45: 00 Yes 1{tbl} 1 tablet, Oral, DAILY, First dose on Fri05/11/24 at 0945, Until Discontinu ed, Routine [facility] magnesium sulfate in water 2 gram/50 mL (4 %) infusion 2 g 05-11 11:30: 00 05-11 12:17 :00 No 2g 2 g, IV Piggyback, Administer over 60 Minutes, ONCE, 1 dose, On Fri05/11/24 at 0630, Routine [facility] Sliding Scale Insulin - lispro (humaLOG) 05-11 01:00: 00 05-12 12:25 :49 No Subcutaneo us, Q4H, First dose on Fri05/10/24 at 2000, Until Discontinu ed, Routine [facility] insulin lispro (human) (HumaLOG U-100) injection 7 Units 05-10 22:00: 00 05-11 17:51 :02 No .25U/kg /d 7 Units (rounded from 6.6167 Units = 0.25 Units/kg/d ay ?79.4 kg), Subcutaneo us, TID MEALS, First dose on Fri05/10/24 at 1700, Until Discontinu ed, Routine [facility] glucagon (GLUCAGEN DIAGNOSTIC KIT) injection 1 mg 05-10 20:59: 34 Yes 1mg 1 mg, Intramuscu lar, PRN, Starting on Fri05/10/24 at 1559, Until Discontinu ed, ANDRE, Blood Glucose < or = 70 mg/dL and patient is NPO, unable to swallow or has mental changes. [facility] dextrose 50 % in water (D50W) injection 25 mL 05-10 20:59: 34 Yes 25mL 25 mL, Slow IV Push, PRN, Starting on Fri05/10/24 at 1559, Until Discontinu ed, ANDRE, Blood Glucose < or = 70 mg/dL and patient is NPO, unable to swallow or has mental status changes. [facility] D5W 0.9% NaCl (NS) 1 L + KCL 20 mEq 05-10 18:00: 00 05-11 19:41 :31 No IV Infusion, at 200 mL/hr, CONTINUOUS , Starting on Fri05/10/24 at 1300, Until Fri05/11/24 at 1441, Routine [facility] butalbital- acetaminoph en-caff (ESGIC) 50-325-40 mg tablet 1 tablet 05-10 16:09: 19 Yes 1{tbl} 1 tablet, Oral, Q4HPRN, Starting on Fri05/10/24 at 1109, Until Discontinu ed, Routine, Pain (scale 7-10) [facility] HYDROcodone -acetaminop hen (NORCO 5) 5-325 mg tablet 1 tablet 05-10 13:21: 53 05-10 16:09 :39 No 1{tbl} 1 tablet, Oral, Q4HPRN, Starting on Fri05/10/24 at 0821, Until Fri05/10/24 at 1109, Routine, Pain (scale 7-10), Pain (scale 4-6) [facility] gabapentin (NEURONTIN) capsule 300 mg 05-10 13:00: 00 Yes 300mg 300 mg, Oral, BID, First dose (after last modificati on) on Fri05/10/24 at 0800, Until Discontinu ed, Routine [facility] heparin (porcine) injection 5,000 Units 05-10 13:00: 00 Yes 5000U 5,000 Units, Subcutaneo us, Q12H, First dose on Fri05/10/24 at 0800, Until Discontinu ed, Routine [facility] D5W 0.45% NaCl + KCL 20 mEq RTU 20 mEq/L 1,000 mL IV Solution 05-10 12:30: 00 05-11 19:41 :31 No IV Infusion, CONTINUOUS , Starting on Fri05/10/24 at 0730, Until Fri05/11/24 at 1441, 1,000 mL, at 200 mL/hr [facility] ondansetron (ZOFRAN (PF)) injection 4 mg 05-10 08:46: 38 Yes 4mg 4 mg, Slow IV Push, Q6HPRN, Starting on Fri05/10/24 at 0346, Until Discontinu ed, Routine, Nausea and Vomiting (N/V) [facility] magnesium sulfate in water 2 gram/50 mL (4 %) infusion 2 g 05-10 07:00: 00 05-10 07:49 :00 No 2g 2 g, IV Piggyback, Administer over 60 Minutes, ONCE, 1 dose, On Fri05/10/24 at 0200, Routine [facility] acetaminoph en (TYLENOL) tablet 650 mg 05-10 06:36: 40 Yes 650mg 650 mg, Oral, Q6HPRN, Starting on Fri05/10/24 at 0136, Until Discontinu ed, Routine, Pain (scale 1-3) [facility] NaCl 0.45% (1/2NS) IV infusion 1,000 mL 05-10 06:30: 00 05-10 11:22 :15 No 1000mL at 250 mL/hr, 1,000 mL, IV Infusion, CONTINUOUS , Starting on Fri05/10/24 at 0130, Until Fri05/10/24 at 0622, ANDRE [facility] D5W 0.45% NaCl (1/2NS) IV infusion 1,000 mL 05-10 05:17: 32 05-10 11:22 :15 No 1000mL at 200 mL/hr, 1,000 mL, IV Infusion, PRN - SEE INSTRUCTIO NS, Starting on Fri05/10/24 at 0017, Until Fri05/10/24 at 0622, [facility] FENTanyl PF (SUBLIMAZE (PF)) injection 50 mcg 05-10 02:00: 00 05-10 01:15 :00 No 50ug 50 mcg, Slow IV Push, ONCE, 1 dose, On Fri05/09/24 at 2100, Routine [facility] ondansetron (ZOFRAN (PF)) injection 4 mg 05-10 01:15: 00 05-10 01:05 :00 No 4mg 4 mg, Slow IV Push, ONCE, 1 dose, On Fri05/09/24 at 2015, ANDRE [facility] NaCl 0.45% (1/2NS) IV infusion 1,000 mL 05-10 01:00: 00 05-10 05:13 :31 No 1000mL at 250 mL/hr, 1,000 mL, IV Infusion, CONTINUOUS , Starting on Fri05/09/24 at 2000, Until Fri05/10/24 at 0013, ANDRE [facility] NaCl 0.9% (NS) bolus infusion 1,000 mL 05-10 00:15: 00 05-10 01:34 :00 No 1000mL at 999 mL/hr, 1,000 mL, IV Infusion, ONCE, 1 dose, On Fri05/09/24 at 1915, STAT [facility] NaCl 0.9% (NS) bolus infusion 1,000 mL 10-21 14:15: 00 10-21 15:12 :00 No 1000mL at 999 mL/hr, 1,000 mL, IV Infusion, ONCE, 1 dose, On Fri10/21/23 at 0815, STAT [facility] IBUPROFEN ORAL 06-10 14:32: 59 Yes Take by mouth. [facility] gabapentin 300 mg capsule 05-20 00:00: 00 05-12 00:00 :00 No [facility] TRULICITY 1.5 mg/0.5 mL PnIj 05-10 00:00: 00 Yes ADMINISTER 1.5 MG UNDER THE SKIN WEEKLY [facility] TRESIBA FLEXTOUCH U-200 200 unit/mL (3 mL) InPn 03-19 00:00: 00 Yes INJECT 30 UNITS SUBCUTANEO US DAILY [facility] ergocalcife rol, vitamin d2, 1,250 mcg (50,000 unit) capsule 03-19 00:00: 00 05-12 00:00 :00 No [facility] NaCl 0.9% (NS) bolus infusion 1,000 mL 12-24 21:30: 00 12-24 22:47 :00 No 1000mL at 999 mL/hr, 1,000 mL, IV Infusion, ONCE, 1 dose, On Fri12/24/22 at 1630, STAT [facility] metroNIDAZO LE in NaCl (iso-os) (FLAGYL I.V.) RTU IV infusion 500 mg 12-24 21:15: 00 12-24 22:25 :00 No 500mg 500 mg, IV Infusion, ONCE, 1 dose, On Fri12/24/22 at 1615, Administer over 60 Minutes, 100 mL
Reas on for Anti-Infec tive: Documented Infection< br>Documen yariel Infection Site: HEENT
D uration of Therapy: 10 days [facility] iopamidol (ISOVUE 370-500 mL) injection 100 mL 12-24 21:15: 00 12-24 20:25 :00 No [id number] 100mL 100 mL, Intravenou s, ONCE, 1 dose, On Fri12/24/22 at 1615, Routine [facility] ketorolac (TORADOL) injection 15 mg 12-24 20:15: 00 12-24 19:15 :00 No 15mg 15 mg, Slow IV Push, ONCE, 1 dose, On Fri12/24/22 at 1515, ANDRE [facility] IBUPROFEN ORAL 12-24 17:27: 15 Yes Take by mouth. [facility] ibuprofen 600 mg tablet 12-24 00:00: 00 Yes [id number] 600mg Take 1 tablet by mouth every 6 (six) hours as needed for Pain (scale 4-6). [facility] metroNIDAZO LE 500 mg tablet 12-24 00:00: 00 01-04 04:59 :00 No [id number] 500mg Take 1 tablet by mouth every 8 (eight) hours for 10 days. [facility] varenicline (CHANTIX) 0.5 mg tablet 12-09 00:00: 00 05-12 00:00 :00 No [id number] .5mg Take 1 tablet by mouth daily. [facility] Immunizations Ordered Immunization Name Filled Immunization Name Date Status Comments Source TDAP 2011-08-14 00:00:00 Completed [facility] TDAP 2011-08-14 00:00:00 Completed [facility] TDAP 2011-08-14 00:00:00 Completed [facility] TDAP 2011-08-14 00:00:00 Completed [facility] TDAP 2011-08-14 00:00:00 Completed [facility] TDAP 2011-08-14 00:00:00 Completed [facility] TDAP 2011-08-14 00:00:00 Completed [facility] TDAP 2011-08-14 00:00:00 Completed [facility] TDAP 2011-08-14 00:00:00 Completed [facility] TDAP 2011-08-14 00:00:00 Completed [facility] TDAP 2011-08-14 00:00:00 Completed [facility] TDAP Unknown Completed [facility] TDAP Unknown Completed [facility] TDAP Unknown Completed [facility] TDAP Unknown Completed [facility] TDAP Unknown Completed [facility] TDAP Unknown Completed [facility] TDAP Unknown Completed [facility] TDAP Unknown Completed [facility] TDAP Unknown Completed [facility] TDAP Unknown Completed [facility] TDAP Unknown Completed [facility] TDAP Unknown Completed [facility] Vital Signs Vital Name Observation Time Observation Value Comments S ource Systolic blood pressure 2024-05-21 13:34:00 123 mm[Hg] [facility] Diastolic blood pressure 2024-05-21 13:34:00 85 mm[Hg] [facility] Heart rate 2024-05-21 13:34:00 87 /min [facility] Body height 2024-05-21 13:34:00 167.6 cm [facility] Body weight 2024-05-21 13:34:00 88.451 kg [facility] BMI 2024-05-21 13:34:00 31.47 kg/m2 [facility] Oxygen saturation in Arterial blood by Pulse oximetry 2024-05-21 13:34:00 99 /min [facility] Systolic blood pressure 2024-05-12 16:46:00 119 mm[Hg] [facility] Diastolic blood pressure 2024-05-12 16:46:00 77 mm[Hg] [facility] Heart rate 2024-05-12 16:46:00 101 /min Unive [facility] Body temperature 2024-05-12 16:46:00 36.22 Nelida [facility] Respiratory rate 2024-05-12 16:46:00 16 /min [facility] Oxygen saturation in Arterial blood by Pulse oximetry 2024-05-12 16:46:00 99 /min [facility] Body height 2024-05-10 00:11:00 167.6 cm [facility] Body weight 2024-05-10 00:11:00 79.379 kg [facility] BMI 2024-05-10 00:11:00 28.25 kg/m2 [facility] Systolic blood pressure 2023-10-21 15:45:00 101 mm[Hg] [facility] Diastolic blood pressure 2023-10-21 15:45:00 90 mm[Hg] [facility] Heart rate 2023-10-21 15:45:00 104 /min [facility] Respiratory rate 2023-10-21 15:45:00 27 /min [facility] Oxygen saturation in Arterial blood by Pulse oximetry 2023-10-21 15:45:00 100 /min [facility] Body temperature 2023-10-21 12:34:00 36.17 Nelida [facility] Body height 2023-10-21 12:34:00 167.6 cm [facility] Body weight 2023-10-21 12:34:00 72.576 kg [facility] BMI 2023-10-21 12:34:00 25.82 kg/m2 [facility] Systolic blood pressure 2023-07-22 20:39:00 128 mm[Hg] [facility] Diastolic blood pressure 2023-07-22 20:39:00 94 mm[Hg] [facility] Heart rate 2023-07-22 20:39:00 104 /min [facility] Body temperature 2023-07-22 20:39:00 36.17 Nelida [facility] Respiratory rate 2023-07-22 20:39:00 18 /min [facility] Body height 2023-07-22 20:39:00 167.6 cm [facility] Body weight 2023-07-22 20:39:00 77.202 kg [facility] BMI 2023-07-22 20:39:00 27.47 kg/m2 [facility] Oxygen saturation in Arterial blood by Pulse oximetry 2023-07-22 20:39:00 100 /min [facility] Systolic blood pressure 2023-06-10 19:20:00 112 mm[Hg] [facility] Diastolic blood pressure 2023-06-10 19:20:00 78 mm[Hg] [facility] Heart rate 2023-06-10 19:20:00 105 /min [facility] Body temperature 2023-06-10 19:20:00 36.83 Nelida [facility] Respiratory rate 2023-06-10 19:20:00 18 /min [facility] Body height 2023-06-10 19:20:00 167.6 cm [facility] Body weight 2023-06-10 19:20:00 78.472 kg [facility] BMI 2023-06-10 19:20:00 27.92 kg/m2 [facility] Oxygen saturation in Arterial blood by Pulse oximetry 2023-06-10 19:20:00 100 /min [facility] Systolic blood pressure 2022-12-24 22:00:00 141 mm[Hg] [facility] Diastolic blood pressure 2022-12-24 22:00:00 97 mm[Hg] [facility] Heart rate 2022-12-24 22:00:00 82 /min [facility] Respiratory rate 2022-12-24 22:00:00 15 /min [facility] Oxygen saturation in Arterial blood by Pulse oximetry 2022-12-24 22:00:00 100 /min [facility] Body temperature 2022-12-24 18:26:00 37.72 Nelida [facility] Body height 2022-12-24 18:26:00 167.6 cm [facility] Body weight 2022-12-24 18:26:00 87.544 kg [facility] BMI 2022-12-24 18:26:00 31.15 kg/m2 [facility] Procedures Procedure Date / Time Performed Performing Clinician Source POCT GLUCOSE (AUTOMATED) 2024-05-12 16:47:00 Monica Raya [facility] POCT GLUCOSE (AUTOMATED) 2024-05-12 12:35:00 Monica Raya [facility] POCT GLUCOSE (AUTOMATED) 2024-05-12 09:40:00 Monica Raya [facility] MAGNESIUM 2024-05-12 07:14:00 Xiao Venturasotero [facility] BASIC METABOLIC PANEL (NA, K, CL, CO2, GLUCOSE, BUN, CREATININE, CA) 2024-05-12 07:14:00 Tito Ventura [facility] CBC WITH DIFF 2024-05-12 07:14:00 Tito Ventura [facility] POCT GLUCOSE (AUTOMATED) 2024-05-12 04:42[facility]00 [facility] 2024-05-12 00:38:00 Monica Raya [facility] POCT GLUCOSE (AUTOMATED) 2024-05-11 21:17:00 Deysi Daigle [facility] BASIC METABOLIC PANEL (NA, K, CL, CO2, GLUCOSE, BUN, CREATININE, CA) 2024-05-11 19:40:00 Abbi Lopez [facility] POCT GLUCOSE (AUTOMATED) 2024-05-11 18:23:00 Deysi Daigle [facility] POCT GLUCOSE (AUTOMATED) 2024-05-11 16:53:00 Deysi Daigle [facility] POCT GLUCOSE (AUTOMATED) 2024-05-11 12:40:00 [facility] MAGNESIUM 2024-05-11 09:09:00 Ricardo [facility] BASIC METABOLIC PANEL (NA, K, CL, CO2, GLUCOSE, BUN, CREATININE, CA) 2024-05-11 09:09:00 Abbi Lopez [facility] CBC WITH DIFF 2024-05-11 09:09:00 Ricardo [facility] POCT GLUCOSE (AUTOMATED) 2024-05-11 09:08:00 Deysi Daigle [facility] POCT GLUCOSE (AUTOMATED) 2024-05-11 05:50:00 [place] [facility] BASIC METABOLIC PANEL (NA, K, CL, CO2, GLUCOSE, BUN, CREATININE, CA) 2024-05-11 02:59:00 Abbi Lopezab [facility] POCT GLUCOSE (AUTOMATED) 2024-05-11 01:23:00 Deysi Daigle [facility] POCT GLUCOSE (AUTOMATED) 2024-05-10 22:59:00 Deysi Daigle [facility] POCT GLUCOSE (AUTOMATED) 2024-05-10 22:13:00 Deysi Daigle [facility] POCT GLUCOSE (AUTOMATED) 2024-05-10 20:56:00 Deysi Daigle [facility] POCT GLUCOSE (AUTOMATED) 2024-05-10 20:06:00 Deysi Daigle [facility] POCT GLUCOSE (AUTOMATED) 2024-05-10 18:58:00 Deysi Daigle [facility] BASIC METABOLIC PANEL (NA, K, CL, CO2, GLUCOSE, BUN, CREATININE, CA) 2024-05-10 18:55:00 Roxana Lovett [facility] POCT GLUCOSE (AUTOMATED) 2024-05-10 18:03:00 [facility] POCT GLUCOSE (AUTOMATED) 2024-05-10 16:51:00 Deysi Daigle [facility] BASIC METABOLIC PANEL (NA, K, CL, CO2, GLUCOSE, BUN, CREATININE, CA) 2024-05-10 16:06:00 Roxana Lovett [facility] POCT GLUCOSE (AUTOMATED) 2024-05-10 16:00:00 Deysi Daigle [facility] POCT GLUCOSE (AUTOMATED) 2024-05-10 14:55:00 Deysi Daigle [facility] POCT GLUCOSE (AUTOMATED) 2024-05-10 13:56:00 Deysi Daigle [facility] POCT GLUCOSE (AUTOMATED) 2024-05-10 12:59:00 Deysi Daigle [facility] MRSA / MSSA SCREEN BY JEAN PIERRE KUMARI 2024-05-10 12:56:00 Lefty Zelaya [facility] BASIC METABOLIC PANEL (NA, K, CL, CO2, GLUCOSE, BUN, CREATININE, CA) 2024-05-10 12:55:00 Roxana Lovett [facility] POCT GLUCOSE (AUTOMATED) 2024-05-10 11:49:00 [facility]ig[facility] POCT GLUCOSE (AUTOMATED) 2024-05-10 10:41:00 Deysi Daigle [facility] TEST, SERUM 2024-05-10 09:02:00 Abbi Lopez [facility] BASIC METABOLIC PANEL (NA, K, CL, CO2, GLUCOSE, BUN, CREATININE, CA) 2024-05-10 09:02:00 Roxana Lovett [facility] POCT GLUCOSE (AUTOMATED) 2024-05-10 09:00:00 Deysi Daigle [facility] POCT GLUCOSE (AUTOMATED) 2024-05-10 07:36:00 Deysi Daigle [facility] POCT GLUCOSE (AUTOMATED) 2024-05-10 06:05:00 Deysi Daigle [facility] XR CHEST 1 VW 2024-05-10 05:43:00 Kvng Zelaya [facility] ACUTE CARE VENOUS BLOOD GAS 2024-05-10 05:20:00 Lefty Zelaya [facility] PHOSPHORUS 2024-05-10 05:14:00 Kvng Zelaya [facility] MAGNESIUM 2024-05-10 05:14:00 Kvng Zelaya [facility] THYROID STIMULATING HORMONE 2024-05-10 05:14:00 Lefty Zelaya [facility] BASIC METABOLIC PANEL (NA, K, CL, CO2, GLUCOSE, BUN, CREATININE, CA) 2024-05-10 05:14:00 Lefty Zelaya [facility] POCT GLUCOSE (AUTOMATED) 2024-05-10 04:30:00 Deysi Daigle [facility] POCT GLUCOSE (AUTOMATED) 2024-05-10 03:00:00 Roxana Morales [facility] POCT GLUCOSE (AUTOMATED) 2024-05-10 01:39:00 Roxana Morales [facility] PHOSPHORUS 2024-05-10 01:33:00 Roxana Lovett [facility] MAGNESIUM 2024-05-10 01:33:00 Roxana Lovett [facility] OSMOLALITY, SERUM OR PLASMA 2024-05-10 01:33:00 Roxana Lovett [facility] BETA HYDROXY-BUTYRATE 2024-05-10 01:33:00 Roxana Diallo [facility] COMP. METABOLIC PANEL (69750) 2024-05-10 01:33:00 Roxana Lovett [facility] LIPID PANEL (83036)(TOTAL CHOLESTEROL, TRIGLYCERIDES, HDL) 2024-05-10 01:33:00 Lefty Zelaya [facility] HB ECG ROUTINE & RHYTHM STRIP 2024-05-10 01:14:34 Roxana Lovett [facility] LIPASE 2024-05-10 00:30:00 Roxana Lovett [facility] TROPONIN I 2024-05-10 00:30:00 Roxana Lovett [facility] CBC WITH DIFF 2024-05-10 00:30:00 Roxana Lovett [facility] GLYCOSYLATED HEMOGLOBIN (A1C) 2024-05-10 00:30:00 Roxana Lovett [facility] URINALYSIS 2024-05-10 00:30:00 Roxana Lovett [facility] AC PANEL 21 + LACTIC ACID 2024-05-10 00:30:00 Roxana Lovett [facility] POCT GLUCOSE (AUTOMATED) 2024-05-10 00:09:00 Roxana Morales [facility] POCT GLUCOSE (AUTOMATED) 2023-10-21 13:10:00 Adriana Santana [facility] AC PANEL 21 + LACTIC ACID 2023-10-21 13:02:00 Koko Spence [facility] MAGNESIUM 2023-10-21 13:01:00 Koko Spence [facility] FREE T4 2023-10-21 13:01:00 [facility] THYROID STIMULATING HORMONE 2023-10-21 13:01:00 Koko Spence [facility] COMP. METABOLIC PANEL (60175) 2023-10-21 13:01:00 Koko Spence [facility] CBC WITH DIFF 2023-10-21 13:01:00 Koko Spence [facility] URINALYSIS 2023-10-21 13:01:00 Koko Spence [facility] URINE DRUG (IMMUNOASSAY) - COMPREHENSIVE DRUG SCREEN W/O REFLEX 2023-10-21 13:01:00 Koko Spence [facility] POCT TEST 2023-10-21 12:41:00 Zachary Spence [facility] BI US GUIDED CORE BREAST BIOPSY RIGHT 2023-07-16 16:14:57 Lashell Fajardo [facility] BI ULTRASOUND BREAST LIMITED RIGHT 2023-07-16 16:12:49 Lashell Fajardo [facility] RADIOLOGY DOCUMENTATION 2023-06-24 05:01:00 Doct or Unassigned, [place] [facility] EXTERNAL PROVIDER RECORDS 2023-06-05 05:01:00 Doctor Unassigned, [place] [facility] REFERRAL- REQUEST/RESPONSE 2023-05-27 05:01:00 Doctor Unassigned, [place] [facility] CT MAXILLOFACIAL/MANDIBLE W CONTRAST 2022-12-24 20:22:28 Josefina Diaz [facility] COMP. METABOLIC PANEL (27263) 2022-12-24 19:14:00 Josefina Diaz [facility] CBC WITH DIFF 2022-12-24 19:14:00 Josefina Diaz [facility] CONSENT/REFUSAL FOR DIAGNOSIS AND TREATMENT 2022-12-24 18:15:09 Doctor Unassigned, [place] [facility] Encounters Start Date/Time End Date/Time Encounter Type Admission Type Attending Clinicians Care Facility Care Department Encounter ID Source 2024-05-14 00:00:00 2024-06-19 18:24:08 [facility] Secure [facility] 1.840.114 350.1.13.10 4.2.7.2.686 [id number] [facility] 2024-05-17 00:00:00 2024-05-21 14:45:01 Telephone Pedro Waldron [facility] 1..840.114 350.1.13.10 4.2.7.2.686 [id number] [facility] 2024-05-21 09:00:00 2024-05-21 10:16:10 Outpatient R BERNARDO NICOLAS [facility] [id number] [facility] 2024-05-21 09:00:00 2024-05-21 10:16:10 Office Visit Bernardo Nicolas [facility] 1.2840.114 350.1.13.10 4.2.7.2.686 [id number] [facility] 2024-05-14 00:00:00 2024-05-14 16:20:59 Telephone Lacie Moncada Marina R [facility] 1.20.114 350.1.13.10 4.2.7.2.686 [id number] [facility] 2024-05-13 00:00:00 2024-05-13 14:00:49 Transition of Care Giron Nava BROWNMasood [facility] 1.20.114 350.1.13.10 4.2.7.2.686 [id number] [facility] 2024-05-09 19:17:00 2024-05-12 16:17:00 [facility] [id number] 2024-05-09 19:17:00 2024-05-12 16:17:00 Hospital Encounter Bony , Roxana Daigle, Ashwini Marquis, Domingo Tapia [facility] 1.20.114 350.1.13.10 4.2.7.2.686 [id number] [facility] 2023-10-21 06:29:00 2023-10-21 09:47:00 Emergency X SID SANTANA [facility] ERT [id number] [facility] 2023-10-21 06:29:00 2023-10-21 09:47:00 Emergency Koko Spence Sid [facility] 1.2.840.114 350.1.13.10 4.2.7.2.686 [id number] [facility] 2023-07-22 15:45:00 2023-07-22 15:54:32 Outpatient R LASHELL FAJARDO [facility] [id number] [facility] 2023-07-22 15:45:00 2023-07-22 15:54:32 [facility] 1.2.840.114 350.1.13.10 4.2.7.2.686 [id number] [facility] 2023-07-16 09:16:20 2023-07-16 23:59:00 Outpatient R LASHELL FAJARDO [facility] [id number] [facility] 2023-07-16 09:16:20 2023-07-16 23:59:00 Hospital Encounter Lashell Fajardo [facility] 1.2.840.114 350.1.13.10 4.2.7.2.686 [id number] [facility] 2023-07-16 09:16:07 2023-07-16 23:59:00 Hospital Encounter Lashell Fajardo [facility] 1.2.840.114 350.1.13.10 4.2.7.2.686 [id number] [facility] 2023-07-03 14:15:37 2023-07-03 23:59:00 Outpatient R LASHELL FAJARDO [facility] [id number] [facility] 2023-07-03 14:15:37 2023-07-03 23:59:00 Hospital Encounter Lashell Fajardo [facility] 1.2840.114 350.1.13.10 4.2.7.2.686 [id number] [facility] 2023-07-01 15:45:00 2023-07-01 15:45:00 Outpatient R LASHELL FAJARDO [facility] [id number] [facility] 2023-07-01 00:00:00 2023-07-01 00:00:00 Telephone Lashell Fajardo [facility] 1.2.840.114 350.1.13.10 4.2.7.2.686 [id number] [facility] 2023-06-24 00:00:00 2023-06-24 00:00:00 Telephone Lashell Fajardo [facility] 1.2.840.114 350.1.13.10 4.2.7.2.686 [id number] [facility] 2023-06-24 00:00:00 2023-06-24 00:00:00 Telephone Lashell Fajardo [facility] 1.2.840.114 350.1.13.10 4.2.7.2.686 [id number] [facility] 2023-06-24 00:00:00 2023-06-24 00:00:00 Orders Only Doctor Unassigned, [place] [facility] 1.2.840.114 350.1.13.10 4.2.7.2.686 [id number] [facility] 2023-06-19 00:00:00 2023-06-19 00:00:00 Telephone Michelle Blanchard [facility] 1.2840.114 350.1.13.10 4.2.7.2.686 [id number] [facility] 2023-06-10 14:30:00 2023-06-10 15:53:44 Outpatient R LAMONT FAJARDOKI [facility] [id number] [facility] 2023-06-10 14:30:00 2023-06-10 15:53:44 [facility] 1.2840.114 350.1.13.10 4.2.7.2.686 [id number] [facility] 2023-06-05 00:00:00 2023-06-05 00:00:00 Orders Only Doctor Unassigned, [place] [facility] 1.0.114 350.1.13.10 4.2.7.2.686 [id number] [facility] 2023-06-04 00:00:00 2023-06-04 00:00:00 [facility] 1.840.114 350.1.13.10 4.2.7.2.686 [id number] [facility] 2023-06-03 14:30:00 2023-06-03 14:30:00 Outpatient R LÓPEZMANUELLASHELL [facility] [id number] [facility] 2023-06-02 00:00:00 2023-06-02 00:00:00 Telephone Bryan Lashell [facility] 1.0.114 350.1.13.10 4.2.7.2.686 [id number] [facility] 2023-05-28 00:00:00 2023-05-28 00:00:00 [facility] 1.2840.114 350.1.13.10 4.2.7.2.686 [id number] [facility] 2023-05-27 00:00:00 2023-05-27 00:00:00 Orders Only Doctor Unassigned, [place] [facility] 1.2.840.114 350.1.13.10 4.2.7.2.686 [id number] [facility] 2022-12-24 13:30:00 2022-12-24 17:50:00 Emergency Josefina Diaz Dang [facility] 1.2.840.114 350.1.13.10 4.2.7.2.686 [id number] [facility] 2022-12-24 13:30:00 2022-12-24 17:50:00 Emergency X JOE, Josefina [facility] ERT [id number] [facility] Results Test Description Test Time Test Comments Results Result Co mments Source [facility] GLUCOSE (AUTOMATED)2024-05-12 12:36:19* Test Item Value Reference Range Interpretation Comme nts POCT GLU (test code = 5747933264) 160 mg/dL 70-110 H Lab Interpretation (test cod e = 04373-0) Abnormal [facility] GLUCOSE (AUTOMATED)2024-05-12 09:44:18* Test Item Value Reference Range Interpretation Comme nts POCT GLU (test code = 4556052933) 110 mg/dL 70-110 Lab Interpretation (test cod e = 25098-9) Normal [facility] GLUCOSE (AUTOMATED)2024-05-12 04:43:47* Test Item Value Reference Range Interpretation Comme nts POCT GLU (test code = 8741716901) 126 mg/dL 70-110 H Lab Interpretation (test cod e = 56158-8) Abnormal [facility] GLUCOSE (AUTOMATED)2024-05-12 00:39:28* Test Item Value Reference Range Interpretation Comme nts POCT GLU (test code = 2570724856) 255 mg/dL 70-110 H Lab Interpretation (test cod e = 52305-4) Abnormal [facility] GLUCOSE (AUTOMATED)2024-05-11 21:19:15* Test Item Value Reference Range Interpretation Comme nts POCT GLU (test code = 2855117048) 297 mg/dL 70-110 H Lab Interpretation (test cod e = 02022-5) Abnormal [facility] Metabolic Panel (NA, K, CL, CO2, GLUCOSE, BUN, CREATININE, CA)2024-05-11 20:38:21* Test Item Value Reference Range Interpretation Comme nts NA (test code = 8196318175) 135 mmol/L 135-145 K (test code = 2570921805) 3.2 mmol/L 3.5-5.0 L CL (test code = 2584534736) 108 mmol/L 98-108 CO2 TOTAL (test code = 2971099489) 19 mmol/L 23-31 L AGAP (test code = 2308265031) 8 2-16 BUN (test code = 6581399192) 12 mg/dL 7-23 GLUCOSE (test code = 4456105024) 249 mg/dL 70-110 H CREATININE (test code = 2160-0) 0.45 mg/dL 0.50-1.04 L CALCIUM (test code = 2733696485) 7.7 mg/dL 8.6-10.6 L eGFR (test code = 33388-1) 124.1 mL/min/1.73m2 CKD-EPI eGFR (2020). Assuming creatinine has been stable day-to-day for at least three months, the eGFR indicates Category G1 (>= 90 mL/min/1.73 m2) Lab Interpretation (test code = 20935-5) [facility]2024-05-11 18:24:00* Test Item Value Reference Range Interpretation Comme [facility] POCT GLU (test code = 9346594073) 211 mg/dL 70-110 H Lab Interpretation (test cod e = 58710-3) Abnormal [facility] Metabolic Panel (NA, K, CL, CO2, GLUCOSE, BUN, CREATININE, CA)2024-05-11 17:01:42* Test Item Value Reference Range Interpretation Comme nts NA (test code = 4795751923) 137 mmol/L 135-145 K (test code = 8947969487) 3.8 mmol/L 3.5-5.0 CL (test code = 8633731365) 112 mmol/L 98-108 H CO2 TOTAL (test code = 9915484000) 16 mmol/L 23-31 L AGAP (test code = 7510310111) 9 2-16 BUN (test code = 6816741991) 11 mg/dL 7-23 GLUCOSE (test code = 4969599373) 221 mg/dL 70-110 H CREATININE (test code = 2160-0) 0.58 mg/dL 0.50-1.04 CALCIUM (test code = 3407328938) 8.2 mg/dL 8.6-10.6 L eGFR (test code = 83273-6) 116.8 mL/min/1.73m2 CKD-EPI eGFR (2020). Assuming creatinine has been stable day-to-day for at least three months, the eGFR indicates Category G1 (>= 90 mL/min/1.73 m2) Lab Interpretation (test code = 97038-7) Abnormal [facility] GLUCOSE (AUTOMATED)2024-05-11 16:57:19* Test Item Value Reference Range Interpretation Comme [facility] POCT GLU (test code = 6415967718) 171 mg/dL 70-110 H Lab Interpretation (test cod e = 52454-2) Abnormal [facility] GLUCOSE (AUTOMATED)2024-05-11 12:44:37* Test Item Value Reference Range Interpretation Comme [facility] POCT GLU (test code = 2155631915) 277 mg/dL 70-110 H Lab Interpretation (test cod e = 79626-7) Abnormal [facility] with [id number] 10:48:42* Test Item Value Reference Range Interpretation Comme [facility] WBC (test code = 6690-2) 3.91 4.30-11.10 L RBC (test code = 789-8) 3.61 3.93-5.25 L HGB (test code = 718-7) 10.5 g/dL 11.6-15.0 L HCT (test code = 4544-3) 30.3 % 35.7-45.2 L MCV (test code = 787-2) 83.9 fL 80.6-95.5 MCH (test code = 785-6) 29.1 pg 25.9-32.8 MCHC (test code = 786-4) 34.7 g/dL 31.6-35.1 RDW-SD (test code = 42932-0) 40.7 fL 39.0-49.9 RDW-CV (test code = 788-0) 13.2 % 12.0-15.5 PLT (test code = 777-3) 255 166-358 MPV (test code = 56030-6) 10.3 fL 9.5-12.9 NRBC/100 WBC (test code = 5028438977) 0.0 0.0-10.0 NRBC x10^3 (test code = 0629951397) See_Comment [Automated messa ge] The system which generated this result transmitted reference range: 10*3/?L. The reference range was not used to interpret this result as normal/abnormal. GRAN MAT (NEUT) % (test code = 770-8) 43.4 % IMM GRAN % (test code = 5100011560) 0.30 % LYMPH % (test code = 736-9) 45.3 % MONO % (test code = 5905-5) 9.7 % EOS % (test code = 713-8) 0.8 % BASO % (test code = 706-2) 0.5 % GRAN MAT x10^3(ANC) (test code = 0338179402) 1.70 10*3/uL 1.88-7.09 L IMM GRAN x10^3 (test code = 3700890169) 0.00-0.06 LYMPH x10^3 (test code = 731-0) 1.77 10*3/uL 1.32-3.29 MONO x10^3 (test code = 742-7) 0.38 10*3/uL 0.33-0.92 EOS x10^3 (test code = 711-2) 0.03 10*3/uL 0.03-0.39 BASO x10^3 (test code = 704-7) 0.01-0.07 Lab Interpretation (test code = 10777-2) [facility] 10:22:19* Test Item Value Reference Range Interpretation Comme nts MAGNESIUM (test code = 9815393712) 1.7 mg/dL 1.7-2.4 Lab Interpretation (test cod e = 96917-1) Normal [facility] GLUCOSE (AUTOMATED)2024-05-11 09:09:19* Test Item Value Reference Range Interpretation Comme nts POCT GLU (test code = 5335856095) 204 mg/dL 70-110 H Lab Interpretation (test cod e = 82949-4) Abnormal [facility] GLUCOSE (AUTOMATED)2024-05-11 05:52:20* Test Item Value Reference Range Interpretation Comme nts POCT GLU (test code = 8329368611) 228 mg/dL 70-110 H Lab Interpretation (test cod e = 45292-7) Abnormal [facility] Metabolc Panel (Na, K, Cl, CO2, Glucose, BUN, Creatinine, Ca)2024-05-11 03:48:08* Test Item Value Reference Range Interpretation Comme nts NA (test code = 1218429133) 137 mmol/L 135-145 K (test code = 7904731201) 4.0 mmol/L 3.5-5.0 CL (test code = 8092525925) 112 mmol/L 98-108 H CO2 TOTAL (test code = 2557337085) 14 mmol/L 23-31 L AGAP (test code = 7590381526) 11 2-16 BUN (test code = 7413789559) 9 mg/dL 7-23 GLUCOSE (test code = 3983955439) 166 mg/dL 70-110 H CREATININE (test code = 2160-0) 0.67 mg/dL 0.50-1.04 CALCIUM (test code = 8545498555) 8.1 mg/dL 8.6-10.6 L eGFR (test code = 44808-0) 112.8 mL/min/1.73m2 CKD-EPI eGFR (2020). Assuming creatinine has been stable day-to-day for at least three months, the eGFR indicates Category G1 (>= 90 mL/min/1.73 m2) Lab Interpretation (test code = 33777-2) Abnormal [facility] GLUCOSE (AUTOMATED)2024-05-11 01:26:18* Test Item Value Reference Range Interpretation Comme nts POCT GLU (test code = 8281586151) 112 mg/dL 70-110 H Lab Interpretation (test cod e = 94773-6) Abnormal [facility] GLUCOSE (AUTOMATED)2024-05-10 23:00:48* Test Item Value Reference Range Interpretation Comme nts POCT GLU (test code = 0729320043) 115 mg/dL 70-110 H Lab Interpretation (test cod e = 45744-5) [facility] 22:14:21* Test Item Value Reference Range Interpretation Comme nts POCT GLU (test code = 2791082430) 117 mg/dL 70-110 H Lab Interpretation (test cod e = 28558-4) Abnormal [facility] GLUCOSE (AUTOMATED)2024-05-10 20:56:49* Test Item Value Reference Range Interpretation Comme nts POCT GLU (test code = 0872340346) 143 mg/dL 70-110 H Lab Interpretation (test cod e = 62464-9) [facility]normal [facility] [id number] 20:44:49Study: Single view chest. Ordering Physician: ABBY DAIGLE Date: 05/09/2024 11:45 PM History:Shortness of breath. COMPARISON: None. Findings: Single frontal view chest demonstrates a normal heart size. Thelungs are clear without infiltrate, pleural effusion or pneumothorax. Noacute osseous abnormality is identified. [facility] GLUCOSE (AUTOMATED)2024-05-10 20:07:17* Test Item Value Reference Range Interpretation Comme nts POCT GLU (test code = 6580617553) 146 mg/dL 70-110 H Lab Interpretation (test cod e = 96472-2) Abnormal [facility] GLUCOSE (AUTOMATED)2024-05-10 19:00:47* Test Item Value Reference Range Interpretation Comme nts POCT GLU (test code = 0280290613) 150 mg/dL 70-110 H Lab Interpretation (test cod e = 68480-3) Abnormal [facility] GLUCOSE (AUTOMATED)2024-05-10 18:04:15* Test Item Value Reference Range Interpretation Comme nts POCT GLU (test code = 9224967231) 177 mg/dL 70-110 H Lab Interpretation (test cod e = 61132-3) Abnormal [facility] GLUCOSE (AUTOMATED)2024-05-10 16:52:48* Test Item Value Reference Range Interpretation Comme nts POCT GLU (test code = 5127556022) 183 mg/dL 70-110 H Lab Interpretation (test cod e = 16453-2) [id number] 16:51:37* Test Item Value Reference Range Interpretation Comme nts PREG SERUM (test code = 9521031332) Negative FRANCESCO (test code = FRANCESCO) Less than 10 IU/L. ?If low titer or ectopic is suspected, resubmit specimen in 48-72 hours. [facility] GLUCOSE (AUTOMATED)2024-05-10 16:03:39* Test Item Value Reference Range Interpretation Comme nts POCT GLU (test code = 6502658222) 183 mg/dL 70-110 H Lab Interpretation (test cod e = 46312-1) Abnormal [facility] GLUCOSE (AUTOMATED)2024-05-10 14:56:45* Test Item Value Reference Range Interpretation Comme nts POCT GLU (test code = 5500867046) 173 mg/dL 70-110 H Lab Interpretation (test cod e = 74784-9) Abnormal [facility] GLUCOSE (AUTOMATED)2024-05-10 13:57:10* Test Item Value Reference Range Interpretation Comme nts POCT GLU (test code = 5876538795) 172 mg/dL 70-110 H Lab Interpretation (test cod e = 83661-3) Abnormal [facility] GLUCOSE (AUTOMATED)2024-05-10 12:59:56* Test Item Value Reference Range Interpretation Comme nts POCT GLU (test code = 6127222833) 172 mg/dL 70-110 H Lab Interpretation (test cod e = 37519-6) Abnormal [facility] GLUCOSE (AUTOMATED)2024-05-10 11:58:02* Test Item Value Reference Range Interpretation Comme nts POCT GLU (test code = 6327606305) 149 mg/dL 70-110 H Lab Interpretation (test cod e = 35512-2) Abnormal [facility] GLUCOSE (AUTOMATED)2024-05-10 10:45:22* Test Item Value Reference Range Interpretation Comme nts POCT GLU (test code = 8867386542) 155 mg/dL 70-110 H Lab Interpretation (test cod e = 09107-8) Abnormal [facility] Metabolic Panel (Na, K, Cl, CO2, Glucose, BUN, Creatinine, Ca)2024-05-10 09:41:10* Test Item Value Reference Range Interpretation Comme nts NA (test code = 1680410145) 134 mmol/L 135-145 L K (test code = 4464307182) 4.6 mmol/L 3.5-5.0 CL (test code = 0813254285) 111 mmol/L 98-108 H CO2 TOTAL (test code = 3670670199) 23-31 L AGAP (test code = 7095653911) Unable to calcul ate because, either,SODIUM SERUM, CHLORIDE SERUM, CO2 TOTAL or all are less than the sensitivity of the analyzer. BUN (test code = 1433922736) 15 mg/dL 7-23 GLUCOSE (test code = 0575486645) 184 mg/dL 70-110 H CREATININE (test code = 2160-0) 0.62 mg/dL 0.50-1.04 CALCIUM (test code = 6138692841) 7.8 mg/dL 8.6-10.6 L eGFR (test code = 24164-5) 114.9 mL/min/1.73m2 CKD-EPI eGFR (20 21). Assuming creatinine has been stable day-to-day for at least three months, the eGFR indicates Category G1 (>= 90 mL/min/1.73 m2) Lab Interpretation (test code = 27396-6) Abnormal [facility] GLUCOSE (AUTOMATED)2024-05-10 09:02:50* Test Item Value Reference Range Interpretation Comme [facility] POCT GLU (test code = 5748673911) 188 mg/dL 70-110 H Lab Interpretation (test cod e = 88736-3) Abnormal [facility] GLUCOSE (AUTOMATED)2024-05-10 07:37:28* Test Item Value Reference Range Interpretation Comme [facility] POCT GLU (test code = 2210621542) 279 mg/dL 70-110 H Lab Interpretation (test cod e = 56939-2) [facility] Oxudbcn9104-12-39 06:29:36 * Test Item Value Reference Range Interpretation Comme nts TSH (test code = 9000146661) 2.59 0.45-4.70 Lab Interpretation (test cod e = 03298-3) Normal [facility] Metabolic Panel (NA, K, CL, CO2, Glucose, BUN, Creatinine, CA)2024-05-10 06:23:15* Test Item Value Reference Range Interpretation Comme nts NA (test code = 0091114103) 135 mmol/L 135-145 L K (test code = 1570039146) 4.6 mmol/L 3.5-5.0 CL (test code = 7128097753) 107 mmol/L 98-108 CO2 TOTAL (test code = 0653099179) 23-31 L AGAP (test code = 8018138994) Unable to calcul ate because, either,SODIUM SERUM, CHLORIDE SERUM, CO2 TOTAL or all are less than the sensitivity of the analyzer. BUN (test code = 1209586979) 19 mg/dL 7-23 GLUCOSE (test code = 7723300885) 291 mg/dL 70-110 H CREATININE (test code = 2160-0) 0.74 mg/dL 0.50-1.04 CALCIUM (test code = 1521088519) 8.6 mg/dL 8.6-10.6 L eGFR (test code = 52192-4) 104.4 mL/min/1.73m2 CKD-EPI eGFR (20 21). Assuming creatinine has been stable day-to-day for at least three months, the eGFR indicates Category G1 (>= 90 mL/min/1.73 m2) Lab Interpretation (test code = 70550-0) [facility])2024-05-10 06:13:23* Test Item Value Reference Range Interpretation Comme nts POCT GLU (test code = 3018225202) 280 mg/dL 70-110 H Lab Interpretation (test cod e = 37720-9) [facility]normal [facility] HospitalMagnesium Dmqvj1543-30-75 05:59:33* Test Item Value Reference Range Interpretation Comme nts MAGNESIUM (test code = 7461670998) 1.6 mg/dL 1.7-2.4 L Lab Interpretation (test cod e = 09862-9) Abnormal [facility] HospitalPhosphorus [id number] 05:59:33* Test Item Value Reference Range Interpretation Comme nts PHOSPHORUS (test code = 2290485216) 2.7 mg/dL 2.5-5.0 Lab Interpretation (test cod e = 13051-8) Normal [facility] HospitalAc[facility] Venous Blood Tid6196-14-62 05:41:44 * Test Item Value Reference Range Interpretation Comme nts PH (test code = 6727138263) 7.04 7.32-7.42 LL PCO2 FRANCO (test code = 7018057775) 25 41-51 L PO2 FRANCO (test code = 4130251556) 34 25-40 HCO3 FRANCO (test code = 8670848928) 7 24-28 L AC VBE(BEAKER) (test code = 1334700103) -22.7 mEq/L Lab Interpretation (test cod e = 02996-2) Abnormal [facility] GLUCOSE (AUTOMATED)2024-05-10 04:41:37* Test Item Value Reference Range Interpretation Comme nts POCT GLU (test code = 0515960188) 297 mg/dL 70-110 H Lab Interpretation (test cod e = 01361-8) Abnormal [facility] GLUCOSE (AUTOMATED)2024-05-10 03:01:50* Test Item Value Reference Range Interpretation Comme nts POCT GLU (test code = 3748295520) 496 mg/dL 70-110 HH Lab Interpretation (test cod e = 68137-5) Abnormal [facility] HospitalGlycosylated Hemoglobin (A1C)2024-05-10 02:06:17* Test Item Value Reference Range Interpretation Comme nts HGB A1C (test code = 4548-4) 11.2 % 4.0-5.7 H FRANCESCO (test code = FRANCESCO) Reference RangesNormal: <5.7%Prediabetes: 5.7 - 6.4%Diabetes: > 6.5% Lab Interpretation (test code = 93357-1) Abnormal [facility] GLUCOSE (AUTOMATED)2024-05-10 01:40:24* Test Item Value Reference Range Interpretation Comme nts POCT GLU (test code = 4778971418) 500 mg/dL 70-110 HH Lab Interpretation (test cod e = 73619-3) Abnormal [facility] HospitalTroponin [id number] 01:16:59* Test Item Value Reference Range Interpretation Comme nts TROPONIN I (test code = 3954959097) 0.015 ng/mL <=0.034 FRANCESCO (test code = FRANCESCO) Reference (Normal) Range (defined by the 99th percentile reference limit): <= 0.034 ng/mL Note: Cardiac troponin begins to rise 3-4 hours after the onset of ischemia. Repeat in 4-6 hours if the sample was drawn within 3-4 hours of the onset of the symptom and found normal. Diagnosis of myocardial injury is made with acute changes in cTn concentrations with at least one serial sample above the 99th percentile upper reference limit (URL), taken together with the patient's clinical presentation. Biotin has been reported to cause a negative bias, interpret results relative to patient's use of biotin. Lab Interpretation (test code = 54525-6) Normal [facility] with [id number] 01:16:52* Test Item Value Reference Range Interpretation Comme nts WBC (test code = 6690-2) 8.23 4.30-11.10 RBC (test code = 789-8) 4.59 3.93-5.25 HGB (test code = 718-7) 13.5 g/dL 11.6-15.0 HCT (test code = 4544-3) 43.6 % 35.7-45.2 MCV (test code = 787-2) 95.0 fL 80.6-95.5 MCH (test code = 785-6) 29.4 pg 25.9-32.8 MCHC (test code = 786-4) 31.0 g/dL 31.6-35.1 L RDW-SD (test code = 69008-8) 45.2 fL 39.0-49.9 RDW-CV (test code = 788-0) 13.1 % 12.0-15.5 PLT (test code = 777-3) 327 166-358 MPV (test code = 99290-7) 11.3 fL 9.5-12.9 NRBC/100 WBC (test code = 2374792356) 0.0 0.0-10.0 NRBC x10^3 (test code = 5002018980) See_Comment [Automated [employer]] The system which generated this result transmitted reference range: 10*3/?L. The reference range was not used to interpret this result as normal/abnormal. GRAN MAT (NEUT) % (test code = 770-8) 73.9 % IMM GRAN % (test code = 0444336617) 0.20 % LYMPH % (test code = 736-9) 21.1 % MONO % (test code = 5905-5) 4.0 % EOS % (test code = 713-8) 0.1 % BASO % (test code = 706-2) 0.7 % GRAN MAT x10^3(ANC) (test code = 0073908346) 6.07 10*3/uL 1.88-7.09 IMM GRAN x10^3 (test code = 7982569201) 0.00-0.06 LYMPH x10^3 (test code = 731-0) 1.74 10*3/uL 1.32-3.29 MONO x10^3 (test code = 742-7) 0.33 10*3/uL 0.33-0.92 EOS x10^3 (test code = 711-2) 0.03-0.39 L BASO x10^3 (test code = 704-7) 0.06 10*3/uL 0.01-0.07 Lab Interpretation (test code = 09961-9) Abnormal [facility] HospitalLipase2024-07-29 01:16:51* Test Item Value Reference Range Interpretation Comme nts LIPASE (test code = 7964228825) 62 U/L 0-220 Lab Interpretation (test cod e = 48742-5) Normal [facility] HospitalAC Panel 21 + Lactic [id number] 00:37:42* Test Item Value Reference Range Interpretation Comme nts PH (test code = 3058010423) 7.00 7.32-7.42 LL PCO2 FRANCO (test code = 5302538400) 23 41-51 L PO2 FRANCO (test code = 8522596303) 36 25-40 HCO3 FRANCO (test code = 2892073300) 6 24-28 L AC VBE(BEAKER) (test code = 5534491392) -24.5 mEq/L THB FRANCO (test code = 5751961411) 15.2 g/dL 12.0-16.0 %O2HB FRANCO (test code = 7163826295) 61.2 % 52.0-63.0 %COHB FRANCO (test code = 5191251336) 1.2 % 0.0-1.5 %METHB FRANCO (test code = 6047433316) 0.0 % 0.4-1.5 L VOL%O2 FRANCO (test code = 9542973093) 13.0 % 6.0-12.0 H NA (test code = 2854861169) 131 mmol/L 135-145 L K+ (test code = 1897425615) 5.9 mmol/L 3.5-5.0 H AC CA IONZ (test code = 7957062360) 4.60 mg/dL 4.50-5.30 GLUCOSE (test code = 5700544534) 575 mg/dL 70-110 HH LACTIC ACID (test code = 6707667811) 1.94 mmol/L 0.50-2.20 Lab Interpretation (test cod e = 47501-9) Abnormal [facility] HospitalPOTX GLUCOSE (AUTOMATED)2024-05-10 00:10:58* Test Item Value Reference Range Interpretation Comme [facility] POCT GLU (test code = 1967531819) 471 mg/dL 70-110 HH Lab Interpretation (test cod e = 30201-8) Abnormal [facility] HospitalThyroid Stimulating Flzlfts1610-41-24 14:28:14 * Test Item Value Reference Range Interpretation Comme nts TSH (test code = 7150779148) 5.05 See_Comment H [Automated messa ge] The system which generated this result transmitted reference range: 0.45 - 4.70 mIU/L. The reference range was not used to interpret this result as normal/abnormal. Lab Interpretation (test code = 45397-1) Abnormal [facility] WITH [id number] 14:16:13* Test Item Value Reference Range Interpretation Comme nts WBC (test code = 6690-2) 7.05 See_Comment [Automated messa ge] The system which generated this result transmitted reference range: 4.30 - 11.10 10*3/?L. The reference range was not used to interpret this result as normal/abnormal. RBC (test code = 789-8) 4.77 See_Comment [Automated messa ge] The system which generated this result transmitted reference range: 3.93 - 5.25 10*6/?L. The reference range was not used to interpret this result as normal/abnormal. HGB (test code = 718-7) 14.5 g/dL 11.6-15.0 HCT (test code = 4544-3) 42.2 % 35.7-45.2 MCV (test code = 787-2) 88.5 fL 80.6-95.5 MCH (test code = 785-6) 30.4 pg 25.9-32.8 MCHC (test code = 786-4) 34.4 g/dL 31.6-35.1 RDW-SD (test code = 57219-4) 41.8 fL 39.0-49.9 RDW-CV (test code = 788-0) 12.9 % 12.0-15.5 PLT (test code = 777-3) 316 See_Comment [Automated messa ge] The system which generated this result transmitted reference range: 166 - 358 10*3/?L. The reference range was not used to interpret this result as normal/abnormal. MPV (test code = 50774-5) 10.9 fL 9.5-12.9 NRBC/100 WBC (test code = 1959132216) 0.0 See_Comment [Automated me ssage] The system which generated this result transmitted reference range: 0.0 - 10.0 /100 WBCs. The reference range was not used to interpret this result as normal/abnormal. NRBC x10^3 (test code = 5387724857) See_Comment [Automated me ssage] The system which generated this result transmitted reference range: 10*3/?L. The reference range was not used to interpret this result as normal/abnormal. GRAN MAT (NEUT) % (test code = 770-8) 67.2 % IMM GRAN % (test code = 5434279343) 0.40 % LYMPH % (test code = 736-9) 23.7 % MONO % (test code = 5905-5) 7.1 % EOS % (test code = 713-8) 0.7 % BASO % (test code = 706-2) 0.9 % GRAN MAT x10^3(ANC) (test code = 0959182142) 4.74 10*3/uL 1.88-7.09 IMM GRAN x10^3 (test code = 5061375823) 0.03 10*3/uL 0.00-0.06 LYMPH x10^3 (test code = 731-0) 1.67 10*3/uL 1.32-3.29 MONO x10^3 (test code = 742-7) 0.50 10*3/uL 0.33-0.92 EOS x10^3 (test code = 711-2) 0.05 10*3/uL 0.03-0.39 BASO x10^3 (test code = 704-7) 0.06 10*3/uL 0.01-0.07 [facility] [id number] 14:14:32* Test Item Value Reference Range Interpretation Comme nts FREE T4 (test code = 1875729658) 0.92 See_Comment [Automated messa ge] The system which generated this result transmitted reference range: 0.78 - 2.20 ng/dL:. The reference range was not used to interpret this result as normal/abnormal. Lab Interpretation (test code = 85895-3) Normal [facility] HospitalMagnesium2024-01-09 13:54:34* Test Item Value Reference Range Interpretation Comme nts MAGNESIUM (test code = 4405964373) 1.8 mg/dL 1.7-2.4 Lab Interpretation (test cod e = 43547-1) Normal [facility]. METABOLIC PANEL (65248)2023-10-21 13:54:14* Test Item Value Reference Range Interpretation Comme nts NA (test code = 1064069893) 138 mmol/L 135-145 K (test code = 4915894259) 4.1 mmol/L 3.5-5.0 CL (test code = 0538347316) 107 mmol/L 98-108 CO2 TOTAL (test code = 0859957178) 15 mmol/L 23-31 L AGAP (test code = 6401282230) 16 2-16 BUN (test code = 8983832487) 21 mg/dL 7-23 GLUCOSE (test code = 4645170776) 225 mg/dL 70-110 H CREATININE (test code = 0466923181) 0.59 mg/dL 0.50-1.04 TOTAL BILI (test code = 4762659400) 0.7 mg/dL 0.1-1.1 CALCIUM (test code = 9071929312) 9.3 mg/dL 8.6-10.6 T PROTEIN (test code = 1811245890) 8.4 g/dL 6.3-8.2 H ALBUMIN (test code = 2754306131) 4.7 g/dL 3.5-5.0 ALK PHOS (test code = 5312685295) 109 U/L 34-122 ALTv (test code = 1742-6) 14 U/L 5-35 AST(SGOT) (test code = 3657145389) 16 U/L 13-40 eGFR (test code = 50998-0) 116.3 mL/min/1.73m2 CKD-EPI eGFR (2020). Assuming creatinine has been stable day-to-day for at least three months, the eGFR indicates Category G1 (>= 90 mL/min/1.73 m2) Lab Interpretation (test code = 11648-4) [facility]normal [facility] PAN[facility] 21 + LACTIC [id number] 13:14:46* Test Item Value Reference Range Interpretation Comme nts PH (test code = 8568076653) 7.26 7.32-7.42 L PCO2 FRANCO (test code = 0846564851) 39 See_Comment L [Automated messa ge] The system which generated this result transmitted reference range: 41 - 51 mmHg. The reference range was not used to interpret this result as normal/abnormal. PO2 FRANCO (test code = 9566945845) 37 See_Comment [Automated messa ge] The system which generated this result transmitted reference range: 25 - 40 mmHg. The reference range was not used to interpret this result as normal/abnormal. HCO3 FRANCO (test code = 4658101409) 17 See_Comment L [Automated messa ge] The system which generated this result transmitted reference range: 24 - 28 mEq/L. The reference range was not used to interpret this result as normal/abnormal. AC VBE(BEAKER) (test code = 1978312814) -9.7 mEq/L THB FRANCO (test code = 9207403538) 15.0 g/dL 12.0-16.0 %O2HB FRANCO (test code = 7307142792) 68.3 % 52.0-63.0 H %COHB FRANCO (test code = 5100683736) 0.9 % 0.0-1.5 %METHB FRANCO (test code = 0331966635) 0.3 % 0.4-1.5 L VOL%O2 FRANCO (test code = 3419122263) 14.4 % 6.0-12.0 H NA (test code = 2325919421) 141 mmol/L 135-145 K+ (test code = 7411408140) 4.1 mmol/L 3.5-5.0 AC CA IONZ (test code = 1101145586) 4.90 mg/dL 4.50-5.30 GLUCOSE (test code = 8974841990) 226 mg/dL 70-110 H LACTIC ACID (test code = 0439659232) 1.05 mmol/L 0.50-2.20 Lab Interpretation (test code = 26956-7) Abnormal [facility] GLUCOSE (AUTOMATED)2023-10-21 13:11:33* Test Item Value Reference Range Interpretation Comme [facility] POCT GLU (test code = 9966139823) 209 mg/dL 70-110 H Lab Interpretation (test cod e = 18622-6) Abnormal [facility] [id number] 12:41:00* Test Item Value Reference Range Interpretation Comme [facility] POCT PREG (test code = 1605) Negative On board controls acceptable with C Line (test code = 3574) Yes POCT PREG LOT # (test code = 3575) [id number] POCT PREG TEST DATE ( test code = 3576) 12/21/2024 Lab Interpretation (test cod e = 65867-5) Normal [facility] WITH [id number] 20:17:06* Test Item Value Reference Range Interpretation Comme nts WBC (test code = 6690-2) 4.90 See_Comment [Automated messa ge] The system which generated this result transmitted reference range: 4.30 - 11.10 10*3/?L. The reference range was not used to interpret this result as normal/abnormal. RBC (test code = 789-8) 3.62 See_Comment L [Automated messa ge] The system which generated this result transmitted reference range: 3.93 - 5.25 10*6/?L. The reference range was not used to interpret this result as normal/abnormal. HGB (test code = 718-7) 11.0 g/dL 11.6-15.0 L HCT (test code = 4544-3) 33.0 % 35.7-45.2 L MCV (test code = 787-2) 91.2 fL 80.6-95.5 MCH (test code = 785-6) 30.4 pg 25.9-32.8 MCHC (test code = 786-4) 33.3 g/dL 31.6-35.1 RDW-SD (test code = 92001-2) 43.5 fL 39.0-49.9 RDW-CV (test code = 788-0) 13.2 % 12.0-15.5 PLT (test code = 777-3) 404 See_Comment H [Automated [employer]] The system which generated this result transmitted reference range: 166 - 358 10*3/?L. The reference range was not used to interpret this result as normal/abnormal. MPV (test code = 66012-0) 9.6 fL 9.5-12.9 NRBC/100 WBC (test code = 1023932550) 0.4 See_Comment [Automated [employer] ssage] The system which generated this result transmitted reference range: 0.0 - 10.0 /100 WBCs. The reference range was not used to interpret this result as normal/abnormal. NRBC x10^3 (test code = 9454134780) 0.02 See_Comment [[employer]ated [employer]] The system which generated this result transmitted reference range: 10*3/?L. The reference range was not used to interpret this result as normal/abnormal. SEG % (test code = 04790-3) 41 % 33-76 META % (test code = 29080-5) 3 % <=0 H MYELO % (test code = 90063-5) 1 % <=0 H LYMPH % (test code = 72456-5) 36 % 14-54 REACT LYMPH % (test code = 5396781806) 2 % MONO % (test code = 57552-9) 12 % 0-4 H EOS % (test code = 55360-8) 4 % 0-3 H BASO % (test code = 76121-7) 1 % 0-1 ANC (test code = 753-4) 2.01 10*3/uL 1.88-7.09 Lab Interpretation (test code = 66643-2) [facility] METABOLIC PANEL (85325)2022-12-24 19:54:33* Test Item Value Reference Range Interpretation Comme nts NA (test code = 0313499998) 140 mmol/L 135-145 K (test code = 1019813986) 4.0 mmol/L 3.5-5.0 CL (test code = 7350186112) 104 mmol/L 98-108 CO2 TOTAL (test code = 4737388724) 25 mmol/L 23-31 AGAP (test code = 5563048615) 11 2-16 BUN (test code = 3263318990) 10 mg/dL 7-23 GLUCOSE (test code = 1218484587) 253 mg/dL 70-110 H CREATININE (test code = 8722637021) 0.44 mg/dL 0.50-1.04 L TOTAL BILI (test code = 9331662723) 0.7 mg/dL 0.1-1.1 CALCIUM (test code = 8010695599) 8.4 mg/dL 8.6-10.6 L T PROTEIN (test code = 6121263068) 7.6 g/dL 6.3-8.2 ALBUMIN (test code = 9307152953) 4.1 g/dL 3.5-5.0 ALK PHOS (test code = 1910454795) 130 U/L 34-122 H ALTv (test code = 1742-6) 84 U/L 5-35 H AST(SGOT) (test code = 9911168076) 70 U/L 13-40 H eGFR (test code = 0681629558) 158.4 mL/min/1.73m2 FRANCESCO (test code = FRANCESCO) Association of Glomerular Filtration Rate (GFR) and Staging of Kidney Disease* + --+ --+ ------+| GFR (mL/min/1.73 m2) ?| With Kidney Damage ?| ?Without Kidney Damage+ --------+ --------+ +| ?>90 ?| ?Stage one ?| ? Normal ?+ ---+ ---+ -------+| ?60-89 ?| ?Stage two ?| ? Decreased GFR ? + --+ --+ ------+| ?30-59 ?| ?Stage three ?| ? Stage three ? + --+ --+ ------+| ?15-29 ?| ?Stage four ? | ? Stage four ?+ ---+ ---+ -------+| ?<15 (or dialysis) ? ?| ?Stage five ? | ? Stage five ?+ ---+ ---+ -------+ *Each stage assumes the associated GFR level has been in effect for at least three months. ?Stages 1 to 5, with or without kidney disease, indicate chronic kidney disease. Notes: Determination of stages one and two (with eGFR >59mL/min/1.73 m2) requires estimation of kidney damage for at least three months as defined by structural or functional abnormalities of the kidney, manifested by either:Pathological abnormalities or Markers of kidney damage (including abnormalities in the composition of the blood or urine or abnormalities in imaging tests). Lab Interpretation (test code = 88147-8) Abnormal [facility] History and Physical Notes Date/Time Note Provider Source 2024-05-09 23:36:40 Medicine Intensive Care History and Physical Date of Service: 05/09/2024 23:37 ICU day: Intubation Day: CHIEF COMPLAINT: N/V HISTORY OF PRESENT ILLNESS Raphael Su is a 43 year old female with PMHx of type 1 DM and hypothyroidism? Here for DKA Patient reports she ran out of her long acting insulin for 4 days and was not able to refill it as PCP was out of town. She kept taking short acting insulin and her glucose was ranging in 300s.she started feeling weak and fatigued 3 days ago and today started having N/V with inability to tolerate PO. Also reports having chills but no documented fever. Reports feeling out of breath over the last 4 hours as well as chest tightness. Reports urinating a lot over last 2 days that is clear and frothy. Denies cough, chest pain, palpitations, dysuria, abdominal pain, or any other symptoms. Reports only taking insulin and gabapentin 300 BID at home. Reports compliance otherwise. Last A1c 11. Reports stopped taking levothyroxine months ago because here levels indicated that she does not need them anymore. When seen, patient was tachycardiac otherwise HDS. Initial ABG in [facility] with PH of 7, bicarb of 5, glucose of 500, A1c of 11. PAST MEDICAL HISTORY Past Medical History: Diagnosis Date Abnormal Pap smear Encounter for smoking cessation counseling 12/09/2016 Genital herpes Type 1 diabetes mellitus 11/06/2021 PAST SURGICAL HISTORY Past Surgical History: Procedure Laterality Date CYST EXCISION cyst removed from left arm pit TUBAL LIGATION FAMILY HISTORY Family History Problem Relation Age of Onset Arthritis Mother Diabetes Father Asthma NoFHx defects NoFHx Breast Cancer NoFHx Colon Cancer NoFHx Ovarian Cancer NoFHx Uterine Cancer NoFHx Cancer NoFHx Depression NoFHx Genetic NoFHx Heart NoFHx High cholesterol NoFHx Hypertension NoFHx Mental retardation NoFHx Neurological NoFHx Osteoporosis NoFHx Psychiatry NoFHx Other - see comments NoFHx SOCIAL HISTORY Social History Socioeconomic History Marital status: Number of children: 4 Years of education: 12 Occupational History Occupation: none Tobacco Use Smoking status: Some Days Types: Cigarettes Smokeless tobacco: Never Tobacco comments: socially Substance and Sexual Activity Alcohol use: Yes Comment: social Drug use: No Sexual activity: Yes Partners: Male control/protection: Surgical Comment: last had sex last friday without condoms Other Topics Concern Blood Transfusions No Social History Narrative No domestic violence or abuse ALLERGIES Allergies Allergen Reactions Bactrim [Sulfamethoxazole-Trimethoprim] Hives Lantus Solostar U-100 Insulin [Insulin Glargine] Anaphylaxis Tramadol Anaphylaxis and Shortness of Breath REVIEW OF SYSTEMS Per HPI PHYSICAL EXAMINATION Vitals: 05/09/24199905/09/24 2039 05/09/24 2100 05/09/24 2132 BP: 123/83 125/83 119/76 (!) 131/99 Pulse: 198 114 116 124 Resp: Temp: TempSrc: SpO2: 94% 97% 99% 99% Weight: Height: Constitutional: AO4. anxious HEENT: dry membranes Resp: clear to auscultation bilaterally Cardio: tachy but regular rhythm. No murmurs GI: soft; non-tender; non-distended; MSK: no clubbing, cyanosis, or edema Integ: no rashes Neuro: no focal deficits Labs (pertinent only)/Imaging: reviewed Assessment/Plan: Raphael Su is a 43 year old female admitted with DKA secondary to being out of insulin Neuro No active issues Cardiovascular No active issues Resp Patient reports feeling out of breath. Likely tachypnea from acidosis. Satting fine -CXR FEN/GI No concerns ID Reports having chills. No documented fevers. -monitor any signs of infection. If so, get BCx Renal Hyponatremia/hypomagnesemia Likely due to hyperglycemia -monitor and replete electrolytes as needed Endo Type 1 DM ( A1c of 11 ) Hypothyroidism Patient here for DKA after being out of insulin. Bicarb of 5 and PH of 7 -start DKA protocol. -can consult endocrine in AM OtherDVT prophylaxis: heparin Dispo: MICU Prognosis: guarded Code Status: full Lefyt Zelaya M.D. 05/09/2024 23:37 Associated attestation - Juan Francisco Marquis MD - 05/10/2024 1:06 PM CDT Attending History Supplement: I personally examined the patient on 05/10/[address] Zelaya's resident note as written. I actively participated in the decision-making process. Please see the resident's note for additional details. Raphael Su is a 43 year old female with DM admitted with DKA requiring iv fluid resuscitation and initiation of insulin. No infectious etiology identified and reports running out of insulin. To consult endocrinology to assist with management. [facility]"
[2024-10-17 10:58] LABS: SARS-CoV-2 Antigen CONTROL BLUE LINE VIS/BG OK; SARS-CoV-2 Antigen Rapid Res Negative (Negative)
--- NOTE | 2024-10-17 11:31 | RAD REPORT ---
Procedure: Chest Pa And Lat (2 Views) HISTORY: Cough COMPARISON: 2019 chest x-ray FINDINGS: The lungs appear clear of acute infiltrate. No significant pleural effusion noted. The heart is normal size. IMPRESSION: No acute abnormality is displayed.
--- NOTE | 2024-10-17 11:34 | ER ---
Nurse's Notes [facility] Name: Raphael Su Age: 44 yrs Sex: Female : 1980 Arrival Date: 10/17/2024 Time: 09:35 Bed IW1 Private MD: Diagnosis: Acute sinusitis, unspecified Presentation: 10/17 10:18 Chief complaint: Patient states: bilateral ear pain onset yesterday. Pt also reports cm10 low grade fever, and 1 episode of vomiting and diarrhea yesterday. No sick contactss. Coronavirus screen: Client denies travel out of the [place] in the last 14 days. Ebola Screen: Patient denies travel to an Ebola-affected area in the 21 days before illness onset. No symptoms or risks identified at this time. 10:18 Method Of Arrival: Ambulatory cm10 10:18 Initial Sepsis Screen: Does the patient meet any 2 criteria? No. Patient's initial cm10 sepsis screen is negative. Does the patient have a suspected source of infection? No. Patient's initial sepsis screen is negative. Risk Assessment: Do you want to hurt yourself or someone else? Patient reports no desire to harm self or others. Onset of symptoms was October 16, 2024. 10:18 Acuity: SHARON 4 cm10 Triage Assessment: 10:29 General: Appears in no apparent distress. uncomfortable, Behavior is calm, cooperative, cm10 appropriate for age. EENT: Tympanic membrane clear on left ear and right ear Ear canal clear on right ear and left ear. Neuro: No deficits noted. Level of Consciousness is awake, alert, obeys commands, Oriented to person, place, time, situation, Appropriate for age. Respiratory: No deficits noted. Airway is patent Respiratory effort is even, unlabored, Respiratory pattern is regular, symmetrical. Historical: - Allergies: 10:21 Bactrim; cm10 10:21 Lantus; cm10 10:21 tramadol; cm10 - PMHx: 10:21 Diabetes - IDDM; High Cholesterol; cm10 - PSHx: 10:21 tubal ligation; cm10 - Immunization history:: Adult Immunizations up to date. - Infectious Disease History:: Denies. - Social history:: Smoking status: unknown. Screenin:50 [facility] ED Fall Risk Assessment (Adult) History of falling in the last 3 months, bp including since admission No falls in past 3 months (0 pts) Confusion or Disorientation No (0 pts) Intoxicated or Sedated No (0 pts) Impaired Gait No (0 pts) Mobility Assist Device Used No (0 pt) Altered Elimination No (0 pt) Score/Fall Risk Level 0 - 2 = Low Risk Oriented to surroundings. Abuse screen: Denies threats or abuse. Denies injuries from another. Nutritional screening: No deficits noted. Tuberculosis screening: No symptoms or risk factors identified. Assessment: 11:50 General: Appears in no apparent distress. Behavior is calm, cooperative, appropriate bp for age. Pain: Complains of pain in right ear and left ear. Vital Signs: 10:18 BP 117 / 87; Pulse 91; Resp 15; Temp 98.5(O); Pulse Ox 100% on R/A; Weight 86.18 kg cm10 (R); Height 5 ft. 6 in. (R); Pain 5/10; 10:18 Body Mass Index 30.67 (86.18 kg, 167.64 cm) cm10 10:18 Pain Scale: Adult cm10 ED Course: 09:39 Patient arrived in ED. ra3 09:41 Francesco Berger FNP-C [facility]. dr5 09:41 Jerry Herrera MD is Attending Physician. dr5 10:21 Triage completed. cm10 10:21 Arm band placed on right wrist. Patient placed in waiting room. cm10 10:21 Labs ordered per protocol. Drawn by ED staff. cm10 10:27 COVID swab sent to lab. Flu and/or RSV swab sent to lab. Strep swab sent to lab. cm10 10:27 Strep Sent. cm10 10:27 SARS RAPID Sent. cm10 10:27 Flu Sent. cm10 11:06 Chest Pa And Lat (2 Views) XRAY In Process Unspecified. EDMS 11:50 Kush Kumar, RN is Primary Nurse. bp 11:50 Patient has correct armband on for positive identification. bp 11:50 No provider procedures requiring assistance completed. Patient did not have IV access bp during this emergency room visit. Administered Medications: No medications were administered Medication: 11:50 VIS not applicable for this client. bp Outcome: 11:34 Discharge ordered by . dr5 11:50 Discharged to home ambulatory, bp 11:50 Condition: stable 11:50 Discharge instructions given to patient, Instructed on discharge instructions, follow up and referral plans. medication usage, Demonstrated understanding of instructions, follow-up care, medications, Prescriptions given X 3, 11:52 Patient left the ED. bp Signatures: Dispatcher [employer] EDKush Elias, RN RN Yuko Gutierres RN RN cm10 Jo Davis ra3 Francesco Berger, BARREL RIFLER HOOK-C BARREL RIFLER HOOK-Cdr5 Corrections: (The following items were deleted from the chart) 10:21 10:18 BP 117 / 87; Pulse 91bpm; Resp 15bpm; Pulse Ox 100% RA; Temp 98.5F Oral; 86.18 kg cm10 Reported; Height 5 ft. 6 in. Reported; BMI: 30.6; cm10
--- NOTE | 2024-10-17 11:34 | EDPHYS ---
Physician Documentation [facility] Name: Raphael Su Age: 44 yrs Sex: Female : 1980 Arrival Date: 10/17/2024 Time: 09:35 Bed IW1 Private MD: ED Physician Jerry Herrera HPI: 10/17 10:31 This 44 yrs old Black Female presents to ER via Ambulatory with complaints of Ear Pain dr5 - body aches. 10:31 The patient presents with a fullness. The complaints affect the right ear and left ear. dr5 Onset: The symptoms/episode began/occurred this morning. Patient is a 44-year-old female with history of diabetes and hyperlipidemia coming in with bilateral ear pain, facial pain, and generalized body aches that started this morning. Patient denies any sick contacts. Patient denies recent swimming. Patient denies sore throat. Patient reports subjective fever last night this resolved this morning.. Historical: - Allergies: 10:21 Bactrim; cm10 10:21 Lantus; cm10 10:21 tramadol; cm10 - PMHx: 10:21 Diabetes - IDDM; High Cholesterol; cm10 - PSHx: 10:21 tubal ligation; cm10 - Immunization history:: Adult Immunizations up to date. - Infectious Disease History:: Denies. - Social history:: Smoking status: unknown. ROS: 10:31 Constitutional: as per hpi dr5 Exam: 10:31 Constitutional: This is a well developed, well nourished patient who is awake, alert, dr5 and in no acute distress. Head/Face: Normocephalic, atraumatic. Eyes: Pupils equal round and reactive to light, extra-ocular motions intact. Lids and lashes normal. Conjunctiva and sclera are non-icteric and not injected. Cornea within normal limits. Periorbital areas with no swelling, redness, or edema. Neck: Trachea midline, no thyromegaly or masses palpated, and no cervical lymphadenopathy. Supple, full range of motion without nuchal rigidity, or vertebral point tenderness. No Meningismus. Chest/axilla: Normal chest wall appearance and motion. Nontender with no deformity. No lesions are appreciated. Respiratory: Lungs have equal breath sounds bilaterally, clear to auscultation. No rales, rhonchi or wheezes noted. No increased work of breathing, no retractions or nasal flaring. Back: No spinal tenderness. No costovertebral tenderness. Full range of motion. 10:31 ENT: Ear canal(s): are normal, TM's: are normal, no acute changes, Nose: is normal, Mouth: is normal, Mild facial tenderness noted bilaterally.. Vital Signs: 10:18 BP 117 / 87; Pulse 91; Resp 15; Temp 98.5(O); Pulse Ox 100% on R/A; Weight 86.18 kg cm10 (R); Height 5 ft. 6 in. (R); Pain 5/10; 10:18 Body Mass Index 30.67 (86.18 kg, 167.64 cm) cm10 10:18 Pain Scale: Adult cm10 MDM: 09:42 Medical Screening Exam initiated dr5 11:38 Differential diagnosis: otitis media, otitis externa, acute otalgia, Acute Sinusitis. dr5 Data reviewed: vital signs, nurses notes. Historians other than the Patient: Spouse/Significant Other: . Care significantly affected by the following chronic conditions: Diabetes, Hyperlipidemia. Care significantly affected by the following Social Determinants of Health: Poor access to healthcare and/or lack of insurance, Poor access to transportation, Problems related to employment. Counseling: I had a detailed discussion with the patient and/or guardian regarding the historical points, exam findings, and any diagnostic results supporting the discharge/admit diagnosis, lab results, radiology results, the need for outpatient follow up, for definitive care, a family practitioner. ED course: Will give patient Augmentin for developing sinusitis and cough medication With cough. Recommended alternating Tylenol Motrin for body aches and/or fever. Medrol Dosepak given with contingency plan to take only if needed due to elevated blood sugars on steroids. Patient is agreeable to plan and will return if worsening symptoms. All questions answered.. 10/17 10:20 Order name: Flu; Complete Time: 11: cm10 10/17 10:20 Order name: SARS RAPID; Complete Time: 11: cm10 10/17 10:20 Order name: Strep cm10 10/17 11:01 Order name: Throat Culture EDMS 10/17 10:22 Order name: Chest Pa And Lat (2 Views) XRAY; Complete Time: 11:33 dr5 Administered Medications: No medications were administered Disposition Summary: 10/17/24 11:34 Discharge Ordered Notes: Location: Home dr5 Condition: Stable dr5 Diagnosis - Acute sinusitis, unspecified dr5 Followup: dr5 - With: Emergency Department - When: As needed - Reason: Worsening of condition Followup: dr5 - With: Private Physician - When: 1 - 2 days - Reason: Recheck today's complaints, Continuance of care, Re-evaluation by your physician Discharge Instructions: - Discharge Summary Sheet dr5 - Earache, Adult dr5 - Sinusitis, Adult dr5 Forms: - Medication Reconciliation Form dr5 - Antibiotic Education dr5 - Patient Portal Instructions dr5 - Leadership Thank You Letter dr5 Prescriptions: - Bromfed DM 2-30-10 mg/5 mL Oral syrup - administer 10 milliliter ORAL route every 6 hours As needed as needed for sinus dr5 symptoms; 240 milliliter; Refills: 0, Product Selection Permitted - Augmentin 875-125 mg Oral Tablet - take 1 tablet ORAL route every 12 hours for 10 days; 20 tablet; Refills: 0, dr5 Product Selection Permitted - Medrol (Elías) 4 mg Oral Tablets, Dose Pack - take 1 tablet ORAL route as directed - follow package instructions; 1 packet; dr5 Refills: 0, Product Selection Permitted Addendum: 10/19/2024 15:34 Co-signature as Attending Physician, Jerry Herrera MD I agree with the assessment and c tanner plan of care. Signatures: Dispatcher [employer] Jerry Davenport MD MD cha Martinez, Clarissa, RN RN cm10 Francesco Berger, PORTABLE ROUTER OPERATOR-C PORTABLE ROUTER OPERATOR-Cdr5 Corrections: (The following items were deleted from the chart) 10/17 10:20 10:20 Influenza Screen (A \T\ B)+BA.LAB.BRZ ordered. EDMS EDMS 10:20 10:20 SARS-COV-2 Antigen Rapid+I.LAB.BRZ ordered. EDMS EDMS 10:20 10:20 Group A Streptococcus Rapid Sc+BA.LAB.BRZ ordered. EDMS EDMS
[2024-10-17 11:58] VITALS: BP 117/87; TEMP 98.5; O2SAT 100
== END 2024-10-17 11:52 | disposition home or self-care (01) ==
LOC: ER 09:35
DX: J01.90 Acute sinusitis, unspecified (principal); Z11.52 Encounter for screening for COVID-19
CPT/HCPCS: 36415; 71046; 87070; 87081; 87804; 87811; 99283